=== PATIENT | female | born 1980 | race American Indian/Alaskan Native ===

== ENCOUNTER 2017-09-21 13:47 | Inpatient (IN) | payer MEDICAID, OTHER ==
[2017-09-21 14:37] LABS: Basophils % (Auto) 0.4 % (0.0-1.8); Mean Corpuscular HGB Conc 30 % (30-34); Mean Corpuscular Hemoglobin 29 pg (28-32); Mean Corpuscular Volume 96 fl (79-97); Platelet Count 292 K/mm3 (140-440); Red Blood Count 3.61 M/mm3 (3.65-5.03); White Blood Count 5.5 K/mm3 (4.5-11.0)
[2017-09-21 14:39] LABS: Hematocrit 34.8 % (30.3-42.9); Hemoglobin 10.5 gm/dl (10.1-14.3)
[2017-09-21 14:50] LABS: Anion Gap 34 mmol/L; BUN/Creatinine Ratio 20; Blood Urea Nitrogen 12 mg/dL (7-17); Calcium 8.9 mg/dL (8.4-10.2); Carbon Dioxide 11 mmol/L (22-30); Chloride 89.9 mmol/L (98-107); Glucose 370 mg/dL (65-100); Potassium 4.3 mmol/L (3.6-5.0); Sodium 131 mmol/L (137-145)
[2017-09-21 14:53] LABS: Urine Drugs of Abuse Note Disclamer
[2017-09-21 15:03] LABS: Bilirubin,Urine NEG (Negative); Blood,Urine NEG (Negative); Ketones,Urine 80 mg/dL (Negative); Leukocyte Esterase,Urine NEG (Negative); Mucus,Urine FEW /HPF; Nitrite,Urine NEG (Negative); RBC,Urine < 1.0 /HPF (0.0-6.0); Urobilinogen,Urine < 2.0 mg/dL (<2.0)
--- NOTE | 2017-09-21 17:42 | Emergency Department Report ---
HPI - General Chief Complaint: Psych Time Seen by Provider: 09/21/17 17:17 - HPI HPI: Room 12 The patient is a 37-year-old female presenting with a chief complaint of suicidal ideation. The patient states this morning at 05:00 she began feeling suicidal. Patient states her plan was to overdose on his arrival to. The patient states her kicked on the door and prevented her from overdosing on anything. Patient denies any active attempt at harming herself. Patient states she's been compliant with her medication for her diabetes. Location: Mental state Duration: Constant since 05:00 Quality: Suicidal Severity: Severe Modifying factors: [see above] Context: [see above] Mode of transportation: [not driving] ED Past Medical Hx - Past Medical History Previous Medical History?: Yes Hx Diabetes: Yes Hx Psychiatric Treatment: Yes (substance abuse, depression) - Surgical History Past Surgical History?: Yes Hx Cholecystectomy: Yes Additional Surgical History: gastric bypass 2007. x 1. tubal ligation - Family History Family history: no significant - Social History Smoking Status: Current Every Day Smoker (1/2 pack per day) Substance Use Type: None (denies illicit drug use) ED Review of Systems ROS: Stated complaint: SUICIDAL THOUGHTS Other details as noted in HPI Respiratory: denies: shortness of breath Endocrine: other (compliance with diabetes medication) Gastrointestinal: nausea. denies: vomiting Psychiatric: suicidal thoughts Physical Exam - Physical Exam Vital Signs: Vital Signs 09/21/17 09/21/17 13:49 16:38 Temperature 99.1 F Pulse Rate 95 H Respiratory 16 18 Rate Blood Pressure 128/86 O2 Sat by Pulse 100 98 Oximetry Physical Exam: GENERAL: The patient is well-developed well-nourished female lying on stretcher not appearing to be in acute distress. [] HEENT: Normocephalic. Atraumatic. Extraocular motions are intact. Patient has moist mucous membranes. NECK: Supple. No meningitic signs are noted. Trachea midline CHEST/LUNGS: There is no respiratory distress noted. HEART/CARDIOVASCULAR: Regular. There is no tachycardia. ABDOMEN: Abdomen is soft, nontender. There is no abdominal distention. SKIN: There is no rash. There is no edema. There is no diaphoresis. NEURO: The patient is awake, alert, and oriented. The patient is cooperative. The patient has normal speech MUSCULOSKELETAL: There is no evidence of acute injury. ED Course Vital Signs 09/21/17 09/21/17 13:49 16:38 Temperature 99.1 F Pulse Rate 95 H Respiratory 16 18 Rate Blood Pressure 128/86 O2 Sat by Pulse 100 98 Oximetry ED Medical Decision Making - Lab Data Result diagrams: 09/21/17 14:18 09/21/17 21:22 Laboratory Tests 09/21/17 09/21/17 09/21/17 14:18 14:18 14:18 WBC 5.5 RBC 3.61 L Hgb 10.5 Hct 34.8 MCV 96 MCH 29 MCHC 30 RDW 21.0 H Plt Count 292 Lymph % (Auto) 19.0 Garden % (Auto) 5.5 Eos % (Auto) 0.0 Baso % (Auto) 0.4 Lymph # 1.0 L Garden # 0.3 Eos # 0.0 Baso # 0.0 Seg Neutrophils % 75.1 H Seg Neutrophils # 4.1 VBG pH Sodium 131 L Potassium 4.3 Chloride 89.9 L Carbon Dioxide 11 L Anion Gap 34 BUN 12 Creatinine 0.6 L Estimated GFR > 60 BUN/Creatinine Ratio 20 Glucose 370 H Calcium 8.9 Urine Color Urine Turbidity Urine pH Ur Specific [place] Urine Protein Urine Glucose (UA) Urine Ketones Urine Blood Urine Nitrite Urine Bilirubin Urine Urobilinogen Ur Leukocyte Esterase Urine WBC (Auto) Urine RBC (Auto) Urine Mucus Salicylates Urine Opiates Screen Urine Methadone Screen Acetaminophen Ur Barbiturates Screen Ur Phencyclidine Scrn Ur Amphetamines Screen U Benzodiazepines Scrn Urine Cocaine Screen U Marijuana (THC) Screen Drugs of Abuse Note Plasma/Serum Alcohol < 0.01 09/21/17 09/21/17 09/21/17 14:18 14:18 14:48 WBC RBC Hgb Hct MCV MCH MCHC RDW Plt Count Lymph % (Auto) Garden % (Auto) Eos % (Auto) Baso % (Auto) Lymph # Garden # Eos # Baso # Seg Neutrophils % Seg Neutrophils # VBG pH Sodium Potassium Chloride Carbon Dioxide Anion Gap BUN Creatinine Estimated GFR BUN/Creatinine Ratio Glucose Calcium Urine Color Yellow Urine Turbidity Clear Urine pH 5.0 Ur Specific [place] 1.025 Urine Protein 30 mg/dl Urine Glucose (UA) >=500 Urine Ketones 80 Urine Blood Neg Urine Nitrite Neg Urine Bilirubin Neg Urine Urobilinogen < 2.0 Ur Leukocyte Esterase Neg Urine WBC (Auto) 1.0 Urine RBC (Auto) < 1.0 Urine Mucus Few Salicylates < 0.3 L Urine Opiates Screen Urine Methadone Screen Acetaminophen < 15.0 Ur Barbiturates Screen Ur Phencyclidine Scrn Ur Amphetamines Screen U Benzodiazepines Scrn Urine Cocaine Screen U Marijuana (THC) Screen Drugs of Abuse Note Plasma/Serum Alcohol 09/21/17 09/21/17 09/21/17 14:48 18:01 21:22 WBC RBC Hgb Hct MCV MCH MCHC RDW Plt Count Lymph % (Auto) Garden % (Auto) Eos % (Auto) Baso % (Auto) Lymph # Garden # Eos # Baso # Seg Neutrophils % Seg Neutrophils # VBG pH 7.347 Sodium 130 L Potassium 4.7 Chloride 91.5 L Carbon Dioxide 14 L Anion Gap 29 BUN 12 Creatinine 0.5 L Estimated GFR > 60 BUN/Creatinine Ratio 24 Glucose 556 H* Calcium 8.2 L Urine Color Urine Turbidity Urine pH Ur Specific [place] Urine Protein Urine Glucose (UA) Urine Ketones Urine Blood Urine Nitrite Urine Bilirubin Urine Urobilinogen Ur Leukocyte Esterase Urine WBC (Auto) Urine RBC (Auto) Urine Mucus Salicylates Urine Opiates Screen Presumptive negative Urine Methadone Screen Presumptive negative Acetaminophen Ur Barbiturates Screen Presumptive negative Ur Phencyclidine Scrn Presumptive negative Ur Amphetamines Screen Presumptive negative U Benzodiazepines Scrn Presumptive negative Urine Cocaine Screen Presumptive negative U Marijuana (THC) Screen Presumptive negative Drugs of Abuse Note Disclamer Plasma/Serum Alcohol - Differential Diagnosis suicidal ideation, DKA, hyperglycemia Critical care attestation.: If time is entered above; I have spent that time in minutes in the direct care of this critically ill patient, excluding procedure time. ED Disposition Clinical Impression: Suicidal ideation, Hyperglycemia, Ketosis Disposition: -09 OP ADMIT IP TO THIS HOSP Is pt being admited?: Yes Does the pt Need Aspirin: No Condition: Fair Referrals: PRIMARY CARE, [Primary Care Provider] - 3-5 Days Time of Disposition: 23:37 (hospitalist paged)
[2017-09-21] MEDS ORDERED: NACL 0.9% 1000 ML 1,000 ML IV ONE ×2 (18:39→21:54)
[2017-09-21] MEDS ORDERED: DESYREL PO ONE (21:13)
[2017-09-21] MEDS ORDERED: ZOFRAN IV ONE (21:13)
[2017-09-21 21:52] LABS: Anion Gap 29 mmol/L; BUN/Creatinine Ratio 24; Blood Urea Nitrogen 12 mg/dL (7-17); Calcium 8.2 mg/dL (8.4-10.2); Carbon Dioxide 14 mmol/L (22-30); Chloride 91.5 mmol/L (98-107); Potassium 4.7 mmol/L (3.6-5.0); Sodium 130 mmol/L (137-145)
[2017-09-21 21:59] LABS: Glucose 556 mg/dL (65-100)
[2017-09-21] MEDS ORDERED: D50W (25GM) Syringe IV PRN (23:38)
[2017-09-21] MEDS ORDERED: NovoLIN R 100 UNITS in NACL 0.9% 99 ML IV SCH (23:45)
[2017-09-22] MEDS ORDERED: NACL 0.9% 1000 ML 1,000 ML IV ONE (00:43)
[2017-09-22] MEDS ORDERED: TYLENOL PO PRN (00:45)
[2017-09-22] MEDS ORDERED: MILK OF MAGNESIA PO PRN (00:45)
[2017-09-22] MEDS ORDERED: D50W (25GM) Syringe IV PRN (00:45)
[2017-09-22] MEDS ORDERED: ZOFRAN IV PRN (00:45)
[2017-09-22] MEDS ORDERED: DULCOLAX PR PRN (00:45)
[2017-09-22 00:50] LABS: Anion Gap 32 mmol/L; BUN/Creatinine Ratio 20; Blood Urea Nitrogen 12 mg/dL (7-17); Calcium 8.1 mg/dL (8.4-10.2); Carbon Dioxide 11 mmol/L (22-30); Chloride 96.5 mmol/L (98-107); Potassium 4.4 mmol/L (3.6-5.0); Sodium 135 mmol/L (137-145)
[2017-09-22 00:51] LABS: Magnesium 1.5 mg/dL (1.7-2.3); Phosphorous 3.5 mg/dL (2.5-4.5)
--- NOTE | 2017-09-22 00:55 | History and Physical Report ---
<ALEXANDRIA CARRILLO Jorge - Last Filed: 09/22/17 00:49> History of Present Illness Date of examination: 09/22/17 History of present illness: 37-year-old woman with a history of diabetes complicated by gastroparesis, depression, pancreatitis comes emergency room because she tried to kill herself by taking xarelto. She intended to check 9 pills but her knocked them out of her hands and she was able to take only 3. She stated that she has a lot of stressors in her life. Sugars are found to be elevated in the emergency room despite given subcutaneous insulin Review Of Systems: Constitutional: no weight loss Ears, eyes, nose, mouth and throat: no nasal congestion, no nasal discharge, no sinus pressure, blurry vision, diplopia Neck: No neck pain or rigidity. Cardiovascular: chest pain, orthopnea, palpitations Respiratory: No shortness of breath, cough Gastrointestinal: no abdominal pain, hematochezia Genitourinary : no dysuria, frequency , hematuria Musculoskeletal: no muscle ache Integumentary: no rash, no pruritis Neurological: no parathesias, focal weakness Endocrine: no cold or heat intolerance, no polyuria or polydipsia Hematologic/Lymphatic: no easy bruising, no easy bleeding, no gland swelling Allergic/Immunologic: no urticaria, no angioedema. PAST MEDICAL HISTORY: diabetes complicated by gastroparesis, depression, pancreatitis PAST SURGICAL HISTORY: Tubal ligation, 1, gastric bypass, cholecystectomy FAILY HISTORY: Diabetes SOCIAL HISTORY: Smokes half pack a day, no alcohol or drugs Medications and Allergies Allergies Allergy/AdvReac Type Severity Reaction Status Date / Time No Known Allergies Allergy Unverified 09/07/15 16:20 Active Meds: Active Medications Dextrose (D50w (25gm) Syringe) 0 ml IV ONCE PRN PRN Reason: Hypoglycemia Insulin Human Regular 100 (units/ Sodium Chloride) 100 mls @ 6 mls/hr IV TITR JERMAN; 6 UNITS/HR PRN Reason: Protocol Sodium Chloride (Nacl 0.9% 1000 Ml) 1,000 mls @ 999 mls/hr IV BOLUS ONE Stop: 09/22/17 01:43 Last Admin: 09/22/17 00:44 Dose: 999 mls/hr Exam - Physical Exam Narrative exam: Gen. appearance: Patient lying in bed in no acute distress HEENT: Normocephalic/atraumatic, pupils equal round reactive to light, extra alkaline movement intact, no scleral icterus, no JVD or thyromegaly or nodule, neck is supple, mucous membrane moist, no erythema or exudate Heart: S1-S2, regular rate and rhythm Lungs: Clear to auscultation bilateral breathing comfortable Abdomen: Positive bowel sounds, nontender, nondistended, no organomegaly Extremities: No edema, cyanosis, clubbing Neuro:: Oriented 3 , cranial nerves II-12 intact, speech, motor intact Skin: No rash, nodules, warm dry - Constitutional Vitals: Temp Pulse Resp BP Pulse Ox 99.1 F 95 H 18 128/86 98 09/21/17 13:49 09/21/17 13:49 09/21/17 16:38 09/21/17 13:49 09/21/17 16:38 Results - Labs CBC & Chem 7: 09/21/17 14:18 09/21/17 21:22 Labs: Abnormal lab results 09/21/17 09/21/17 09/21/17 Range/Units 14:18 14:18 14:18 RBC 3.61 L (3.65-5.03) M/mm3 RDW 21.0 H (13.2-15.2) % Lymph # 1.0 L (1.2-5.4) K/mm3 Seg Neutrophils % 75.1 H (40.0-70.0) % Sodium 131 L (137-145) mmol/L Chloride 89.9 L (98-107) mmol/L Carbon Dioxide 11 L (22-30) mmol/L Creatinine 0.6 L (0.7-1.2) mg/dL Glucose 370 H (65-100) mg/dL POC Glucose (70-105) Calcium (8.4-10.2) mg/dL Salicylates < 0.3 L (2.8-20.0) mg/dL 09/21/17 09/21/17 Range/Units 21:22 23:29 RBC (3.65-5.03) M/mm3 RDW (13.2-15.2) % Lymph # (1.2-5.4) K/mm3 Seg Neutrophils % (40.0-70.0) % Sodium 130 L (137-145) mmol/L Chloride 91.5 L (98-107) mmol/L Carbon Dioxide 14 L (22-30) mmol/L Creatinine 0.5 L (0.7-1.2) mg/dL Glucose 556 H* (65-100) mg/dL POC Glucose > 500 H (70-105) Calcium 8.2 L (8.4-10.2) mg/dL Salicylates (2.8-20.0) mg/dL Assessment and Plan Assessment DKA Suicide ideation Depression Pancreatitis, chronic Plan Admit to medicine Start IV fluids, insulin drip Check fingersticks, serial chemistry Consult psych, critical care initiate DVT prophylaxis <NAKUL THURMAN - Last Filed: 09/22/17 16:48> History of Present Illness Date of admission: 09/22/17 00:45 Medications and Allergies Active Meds: Active Medications Acetaminophen (Tylenol) 650 mg PO Q4H PRN PRN Reason: Pain MILD(1-3)/Fever >100.5/ROQUE Last Admin: 09/22/17 12:55 Dose: 650 mg Bisacodyl (Dulcolax) 10 mg MA QDAY PRN PRN Reason: Constipation unrelieved by [facility] Dextrose (D50w (25gm) Syringe) 0 ml IV ONCE PRN PRN Reason: Hypoglycemia Gabapentin (Neurontin) 300 mg PO BID [facility] Last Admin: 09/22/17 12:48 Dose: 300 mg Sodium Chloride (Nacl 0.9% 1000 Ml) 1,000 mls @ 150 mls/hr IV DIRECT JERMAN Last Admin: 09/22/17 02:19 Dose: 150 mls/hr Sodium Chloride (Nacl 0.9% 1000 Ml) 1,000 mls @ 125 mls/hr IV DIRECT [facility] Influenza Virus Vaccine Quadrival (Fluarix Quad [id number](36 Mos+) 0.5 ml IM .ONCE ONE Stop: 09/23/17 12:01 Insulin Aspart (Novolog) 10 units SUB-Q AC [facility] Last Admin: 09/22/17 12:48 Dose: 10 units Insulin Detemir (Levemir) 20 units SUB-Q QHS [facility] Magnesium Hydroxide (Milk Of Magnesia) 30 ml PO Q4H PRN PRN Reason: Constipation Ondansetron HCl (Zofran) 4 mg IV Q8H PRN PRN Reason: N/V unrelieved by Reglan Pneumococcal Polyvalent Vaccine (Pneumovax 23) 0.5 ml IM .ONCE ONE Stop: 09/23/17 12:01 Rivaroxaban (Xarelto) 20 mg PO DAILY [facility] PRN Reason: Protocol Last Admin: 09/22/17 15:41 Dose: Not Given Sodium Bicarbonate (Sodium Bicarbonate) 650 mg PO TID [facility] Stop: 09/24/17 13:59 Venlafaxine HCl (Effexor Xr) 75 mg PO QDAY [facility] Exam - Constitutional Vitals: Temp Pulse Resp BP Pulse Ox 98.5 F 86 23 117/73 100 09/22/17 08:30 09/22/17 12:00 09/22/17 12:00 09/22/17 12:00 09/22/17 12:00 Results - Labs CBC & Chem 7: 09/21/17 14:18 09/22/17 08:39 Labs: Abnormal lab results 09/21/17 09/21/17 09/21/17 Range/Units 14:18 21:22 23:29 Sodium 130 L (137-145) mmol/L Chloride 91.5 L (98-107) mmol/L Carbon Dioxide 14 L (22-30) mmol/L Creatinine 0.5 L (0.7-1.2) mg/dL Glucose 556 H* (65-100) mg/dL POC Glucose > 500 H (70-105) Hemoglobin A1c (4-6) % Calcium 8.2 L (8.4-10.2) mg/dL Magnesium (1.7-2.3) mg/dL Salicylates < 0.3 L (2.8-20.0) mg/dL 09/22/17 09/22/17 09/22/17 Range/Units 00:04 00:04 02:10 Sodium 135 L (137-145) mmol/L Chloride 96.5 L (98-107) mmol/L Carbon Dioxide 11 L (22-30) mmol/L Creatinine 0.6 L (0.7-1.2) mg/dL Glucose 509 H* (65-100) mg/dL POC Glucose 347 H (70-105) Hemoglobin A1c (4-6) % Calcium 8.1 L (8.4-10.2) mg/dL Magnesium 1.50 L (1.7-2.3) mg/dL Salicylates (2.8-20.0) mg/dL 09/22/17 09/22/17 09/22/17 Range/Units 03:17 03:30 03:30 Sodium (137-145) mmol/L Chloride (98-107) mmol/L Carbon Dioxide 18 L D (22-30) mmol/L Creatinine 0.4 L (0.7-1.2) mg/dL Glucose 188 H (65-100) mg/dL POC Glucose 200 H (70-105) Hemoglobin A1c (4-6) % Calcium 8.1 L (8.4-10.2) mg/dL Magnesium 1.40 L (1.7-2.3) mg/dL Salicylates (2.8-20.0) mg/dL 09/22/17 09/22/17 09/22/17 Range/Units 04:29 06:06 07:09 Sodium (137-145) mmol/L Chloride (98-107) mmol/L Carbon Dioxide 20 L (22-30) mmol/L Creatinine 0.3 L (0.7-1.2) mg/dL Glucose (65-100) mg/dL POC Glucose 144 H 144 H (70-105) Hemoglobin A1c (4-6) % Calcium 8.0 L (8.4-10.2) mg/dL Magnesium (1.7-2.3) mg/dL Salicylates (2.8-20.0) mg/dL 09/22/17 09/22/17 09/22/17 Range/Units 08:23 08:39 09:39 Sodium 134 L (137-145) mmol/L Chloride (98-107) mmol/L Carbon Dioxide 18 L (22-30) mmol/L Creatinine 0.3 L (0.7-1.2) mg/dL Glucose 229 H (65-100) mg/dL POC Glucose 222 H 255 H (70-105) Hemoglobin A1c (4-6) % Calcium 7.7 L (8.4-10.2) mg/dL Magnesium (1.7-2.3) mg/dL Salicylates (2.8-20.0) mg/dL 09/22/17 09/22/17 09/22/17 Range/Units 10:44 11:24 11:37 Sodium (137-145) mmol/L Chloride (98-107) mmol/L Carbon Dioxide (22-30) mmol/L Creatinine (0.7-1.2) mg/dL Glucose (65-100) mg/dL POC Glucose 172 H 232 H (70-105) Hemoglobin A1c 8.5 H (4-6) % Calcium (8.4-10.2) mg/dL Magnesium (1.7-2.3) mg/dL Salicylates (2.8-20.0) mg/dL 09/22/17 Range/Units 16:20 Sodium (137-145) mmol/L Chloride (98-107) mmol/L Carbon Dioxide (22-30) mmol/L Creatinine (0.7-1.2) mg/dL Glucose (65-100) mg/dL POC Glucose 199 H (70-105) Hemoglobin A1c (4-6) % Calcium (8.4-10.2) mg/dL Magnesium (1.7-2.3) mg/dL Salicylates (2.8-20.0) mg/dL
[2017-09-22] MEDS ORDERED: D5/0.45NS 1,000 ML IV SCH (01:00)
[2017-09-22 01:15] LABS: Glucose 509 mg/dL (65-100)
[2017-09-22] MEDS ORDERED: NACL 0.9% 1000 ML 1,000 ML IV SCH ×2 (03:00→11:00)
[2017-09-22 04:05] LABS: BUN/Creatinine Ratio 25; Blood Urea Nitrogen 10 mg/dL (7-17); Calcium 8.1 mg/dL (8.4-10.2); Carbon Dioxide 18 mmol/L (22-30); Chloride 101.5 mmol/L (98-107); Glucose 188 mg/dL (65-100); Potassium 3.9 mmol/L (3.6-5.0); Sodium 137 mmol/L (137-145)
[2017-09-22 04:08] LABS: Anion Gap 21 mmol/L
[2017-09-22 04:13] LABS: Magnesium 1.4 mg/dL (1.7-2.3); Phosphorous 2.8 mg/dL (2.5-4.5)
[2017-09-22 06:52] LABS: BUN/Creatinine Ratio 27; Blood Urea Nitrogen 8 mg/dL (7-17); Carbon Dioxide 20 mmol/L (22-30); Chloride 105.7 mmol/L (98-107); Glucose 98 mg/dL (65-100); Sodium 140 mmol/L (137-145)
[2017-09-22 07:18] LABS: Anion Gap 19 mmol/L; Potassium 4.5 mmol/L (3.6-5.0)
[2017-09-22] MEDS ORDERED: MAGNESIUM SULFATE 4GM/100ML 4 GM/100 ML BAG IV ONE (09:00)
[2017-09-22 09:14] LABS: Anion Gap 20 mmol/L; BUN/Creatinine Ratio 27; Blood Urea Nitrogen 8 mg/dL (7-17); Calcium 7.7 mg/dL (8.4-10.2); Carbon Dioxide 18 mmol/L (22-30); Chloride 100.3 mmol/L (98-107); Glucose 229 mg/dL (65-100); Potassium 4.1 mmol/L (3.6-5.0); Sodium 134 mmol/L (137-145)
--- NOTE | 2017-09-22 09:37 | Event Note ---
Date: 09/22/17 Patient is 37 yo with diabetic ketoacidosis. I have seen and examined her today. Blood glucose improved, anion gap closing. Awaiting BMP. February d/c Insulin drip and transition to subcut Insulin and transfer to Med/surg.
[2017-09-22] MEDS ORDERED: XARELTO PO SCH (12:00)
[2017-09-22] MEDS: NEURONTIN PO SCH (12:48)
[2017-09-22] MEDS: NOVOLOG SUB-Q SCH ×2 (12:48→17:14)
--- NOTE | 2017-09-22 13:59 | Consultation ---
History of Present Illness - Reason for Consult Consult date: 09/22/17 Reason for consult: Mental Health Evaluation Requesting physician: LUCÍA DEGROOT - Chief Complaint Chief complaint: "I was never suicidal" - History of Present Psychiatric Illness The patient is a 37-year-old female presenting with a chief complaint of suicidal ideation. Today patient is calm and cooperative during the assessment. She stated that she isn't suicidal. She stated that she she been "clean 23 day" from using percocet. She stated that she completed a detox program 3 weeks ago and feared returning to her current residence because of the the "bad drug environment." She felt like if she endorsed SI, she would be placed at a alf. She stated that she went to [facility] (no beds available) prior to coming to [facility]. She stated being dx with depression and take Effexor. She stated that she fear relapsing and that fear exacerbate her depression. She denies being suicidal now or in the past. She denies HI's and AVH's. She denies recreational drug use and alcohol consumption (etoh). Medications and Allergies Allergies Allergy/AdvReac Type Severity Reaction Status Date / Time No Known Allergies Allergy Unverified 09/07/15 16:20 Home Medications Medication Instructions Recorded Confirmed Last Taken Type Gabapentin [Neurontin] 300 mg PO BID 09/22/17 09/22/17 Unknown History Insulin Aspart [NovoLOG Flexpen] 10 units SQ AC 09/22/17 09/22/17 Unknown History Levemir 5 units SQ QHS 09/22/17 09/22/17 Unknown History Rivaroxaban [Xarelto] 20 mg PO DAILY 09/22/17 09/22/17 Unknown History Active Meds: Active Medications Acetaminophen (Tylenol) 650 mg PO Q4H PRN PRN Reason: Pain MILD(1-3)/Fever >100.5/ROQUE Last Admin: 09/22/17 12:55 Dose: 650 mg Bisacodyl (Dulcolax) 10 mg PA QDAY PRN PRN Reason: Constipation unrelieved by [facility] Dextrose (D50w (25gm) Syringe) 0 ml IV ONCE PRN PRN Reason: Hypoglycemia Gabapentin (Neurontin) 300 mg PO BID [facility] Last Admin: 09/22/17 12:48 Dose: 300 mg Sodium Chloride (Nacl 0.9% 1000 Ml) 1,000 mls @ 150 mls/hr IV DIRECT [facility]ERMAN Last Admin: 09/22/17 02:19 Dose: 150 mls/hr Sodium Chloride (Nacl 0.9% 1000 Ml) 1,000 mls @ 125 mls/hr IV DIRECT [facility] Insulin Aspart (Novolog) 10 units SUB-Q AC [facility] Last Admin: 09/22/17 12:48 Dose: 10 units Magnesium Hydroxide (Milk Of Magnesia) 30 ml PO Q4H PRN PRN Reason: Constipation Ondansetron HCl (Zofran) 4 mg IV Q8H PRN PRN Reason: N/V unrelieved by Reglan Rivaroxaban (Xarelto) 20 mg PO DAILY [facility] PRN Reason: Protocol Sodium Bicarbonate (Sodium Bicarbonate) 650 mg PO TID [facility] Stop: 09/24/17 13:59 Past psychiatric history - Past Medical History Past Medical History: No medical history Past Surgical History: cholecystectomy - past Psychiatric treatment and history Psych: Depression psychiatric treatment history: Inpatient detox for opiate abuse. Hx of depression. Denies a fan psy hx. - Social History Social history: lives with family Mental Status Exam - Vital signs Last Vital Signs Temp 98.5 F 09/22/17 08:30 Pulse 86 09/22/17 12:00 Resp 23 09/22/17 12:00 BP 117/73 09/22/17 12:00 Pulse Ox 100 09/22/17 12:00 - Exam Narrative exam: MSE: Appearance: calm, cooperative Behavior: regular eye contact Speech: regular rate and tone Mood: "okay" Affect: congruent to mood Thought Process: circumstantial Thought Content: denies SI/HI's and AVH's Motor Activity: ambulatory Cognition: A/O x3 Insight: fair Judgment: fair Results Result Diagrams: 09/21/17 14:18 09/22/17 08:39 Abnormal lab results 09/21/17 09/21/17 09/21/17 Range/Units 14:18 14:18 14:18 RBC 3.61 L (3.65-5.03) M/mm3 RDW 21.0 H (13.2-15.2) % Lymph # 1.0 L (1.2-5.4) K/mm3 Seg Neutrophils % 75.1 H (40.0-70.0) % Sodium 131 L (137-145) mmol/L Chloride 89.9 L (98-107) mmol/L Carbon Dioxide 11 L (22-30) mmol/L Creatinine 0.6 L (0.7-1.2) mg/dL Glucose 370 H (65-100) mg/dL POC Glucose (70-105) Hemoglobin A1c (4-6) % Calcium (8.4-10.2) mg/dL Magnesium (1.7-2.3) mg/dL Salicylates < 0.3 L (2.8-20.0) mg/dL 09/21/17 09/21/17 09/22/17 Range/Units 21:22 23:29 00:04 RBC (3.65-5.03) M/mm3 RDW (13.2-15.2) % Lymph # (1.2-5.4) K/mm3 Seg Neutrophils % (40.0-70.0) % Sodium 130 L (137-145) mmol/L Chloride 91.5 L (98-107) mmol/L Carbon Dioxide 14 L (22-30) mmol/L Creatinine 0.5 L (0.7-1.2) mg/dL Glucose 556 H* (65-100) mg/dL POC Glucose > 500 H (70-105) Hemoglobin A1c (4-6) % Calcium 8.2 L (8.4-10.2) mg/dL Magnesium 1.50 L (1.7-2.3) mg/dL Salicylates (2.8-20.0) mg/dL 09/22/17 09/22/17 09/22/17 Range/Units 00:04 02:10 03:17 RBC (3.65-5.03) M/mm3 RDW (13.2-15.2) % Lymph # (1.2-5.4) K/mm3 Seg Neutrophils % (40.0-70.0) % Sodium 135 L (137-145) mmol/L Chloride 96.5 L (98-107) mmol/L Carbon Dioxide 11 L (22-30) mmol/L Creatinine 0.6 L (0.7-1.2) mg/dL Glucose 509 H* (65-100) mg/dL POC Glucose 347 H 200 H (70-105) Hemoglobin A1c (4-6) % Calcium 8.1 L (8.4-10.2) mg/dL Magnesium (1.7-2.3) mg/dL Salicylates (2.8-20.0) mg/dL 09/22/17 09/22/17 09/22/17 Range/Units 03:30 03:30 04:29 RBC (3.65-5.03) M/mm3 RDW (13.2-15.2) % Lymph # (1.2-5.4) K/mm3 Seg Neutrophils % (40.0-70.0) % Sodium (137-145) mmol/L Chloride (98-107) mmol/L Carbon Dioxide 18 L D (22-30) mmol/L Creatinine 0.4 L (0.7-1.2) mg/dL Glucose 188 H (65-100) mg/dL POC Glucose 144 H (70-105) Hemoglobin A1c (4-6) % Calcium 8.1 L (8.4-10.2) mg/dL Magnesium 1.40 L (1.7-2.3) mg/dL Salicylates (2.8-20.0) mg/dL 09/22/17 09/22/17 09/22/17 Range/Units 06:06 07:09 08:23 RBC (3.65-5.03) M/mm3 RDW (13.2-15.2) % Lymph # (1.2-5.4) K/mm3 Seg Neutrophils % (40.0-70.0) % Sodium (137-145) mmol/L Chloride (98-107) mmol/L Carbon Dioxide 20 L (22-30) mmol/L Creatinine 0.3 L (0.7-1.2) mg/dL Glucose (65-100) mg/dL POC Glucose 144 H 222 H (70-105) Hemoglobin A1c (4-6) % Calcium 8.0 L (8.4-10.2) mg/dL Magnesium (1.7-2.3) mg/dL Salicylates (2.8-20.0) mg/dL 09/22/17 09/22/17 09/22/17 Range/Units 08:39 09:39 10:44 RBC (3.65-5.03) M/mm3 RDW (13.2-15.2) % Lymph # (1.2-5.4) K/mm3 Seg Neutrophils % (40.0-70.0) % Sodium 134 L (137-145) mmol/L Chloride (98-107) mmol/L Carbon Dioxide 18 L (22-30) mmol/L Creatinine 0.3 L (0.7-1.2) mg/dL Glucose 229 H (65-100) mg/dL POC Glucose 255 H 172 H (70-105) Hemoglobin A1c (4-6) % Calcium 7.7 L (8.4-10.2) mg/dL Magnesium (1.7-2.3) mg/dL Salicylates (2.8-20.0) mg/dL 09/22/17 09/22/17 Range/Units 11:24 11:37 RBC (3.65-5.03) M/mm3 RDW (13.2-15.2) % Lymph # (1.2-5.4) K/mm3 Seg Neutrophils % (40.0-70.0) % Sodium (137-145) mmol/L Chloride (98-107) mmol/L Carbon Dioxide (22-30) mmol/L Creatinine (0.7-1.2) mg/dL Glucose (65-100) mg/dL POC Glucose 232 H (70-105) Hemoglobin A1c 8.5 H (4-6) % Calcium (8.4-10.2) mg/dL Magnesium (1.7-2.3) mg/dL Salicylates (2.8-20.0) mg/dL All other labs normal. Assessment and Plan Assessment and plan: Impression: Hx of Depression. Today patient is calm and cooperative during the assessment. Recommendation/Plan: Continue 1013 and gather collateral information to help determine proper dispo. Start home medication Effexor 75 mg PO daily for depression. Discussed possible suicidality/medication induced penny with patient reference Effexor.
[2017-09-22] MEDS: SODIUM BICARBONATE PO SCH (18:10)
[2017-09-22] MEDS: EFFEXOR XR PO SCH (18:10)
[2017-09-22] MEDS: XANAX PO PRN (19:51)
[2017-09-22] MEDS ORDERED: LEVEMIR SUB-Q SCH (22:00)
[2017-09-23] MEDS: NEURONTIN PO SCH ×2 (00:45→09:24)
[2017-09-23] MEDS: SODIUM BICARBONATE PO SCH ×2 (00:46→09:23)
[2017-09-23] MEDS ORDERED: DESYREL PO SCH (02:00)
[2017-09-23] MEDS: XANAX PO PRN (04:11)
[2017-09-23 06:20] LABS: Anion Gap 22 mmol/L; BUN/Creatinine Ratio 23; Blood Urea Nitrogen 9 mg/dL (7-17); Calcium 8.1 mg/dL (8.4-10.2); Carbon Dioxide 19 mmol/L (22-30); Chloride 102.4 mmol/L (98-107); Glucose 296 mg/dL (65-100); Potassium 4.1 mmol/L (3.6-5.0); Sodium 139 mmol/L (137-145)
[2017-09-23 06:26] LABS: Basophils % (Auto) 0.3 % (0.0-1.8); Eosinophils % (Auto) 0.5 % (0.0-4.3); Hematocrit 28.2 % (30.3-42.9); Hemoglobin 8.8 gm/dl (10.1-14.3); Mean Corpuscular HGB Conc 31 % (30-34); Mean Corpuscular Hemoglobin 29 pg (28-32); Mean Corpuscular Volume 93 fl (79-97); Platelet Count 232 K/mm3 (140-440); Red Blood Count 3.04 M/mm3 (3.65-5.03)
[2017-09-23 06:27] LABS: Red Cell Distribution Width 20.4 % (13.2-15.2)
[2017-09-23 06:31] LABS: INR 0.86 (0.87-1.13); Partial Thromboplastin Time 30.7 Sec. (24.2-36.6)
[2017-09-23 08:19] VITALS: BP 153/96
--- NOTE | 2017-09-23 09:19 | Discharge Summary ---
Providers - Providers Date of Admission: 09/22/17 00:45 Date of discharge: 09/23/17 Attending physician: NAKUL THURMAN 09/22/17 00:58 psychiatry consult [Consult to Mental Health] [CONS] Routine Reason For Exam: SI Place consult to:: PSYCH Notified:: amanda Phone number called:: [phone] Was contact made?: No Time called:: 16:53 Comment:: no answer Primary care physician: BASKET SORTER Hospitalization Condition: Fair Exam - Constitutional Vitals: Temp Pulse Resp BP Pulse Ox 98.6 F 80 16 153/96 100 09/23/17 08:17 09/23/17 08:17 09/23/17 08:17 09/23/17 08:17 09/23/17 08:17 Plan Activity: no restrictions Diet: diabetic Additional Instructions: 1.Follow up with PCP or [facility] in 1 week. 2.Folllow up with mental health in 1-3 days as outpatient. Follow up with: PRIMARY CARE, [Primary Care Provider] - 3-5 Days Prescriptions: Insulin Detemir [Levemir] 10 units SUB-Q QHS #1 vial
--- NOTE | 2017-09-23 09:21 | Progress Note ---
Subjective - Reason for Consult Consult date: 09/23/17 Reason for consult: Psychiatry Follow-up - Chief Complaint Chief complaint: "I'm ready to be discharged" The patient is a 37-year-old female presenting with a chief complaint of suicidal ideation. Today patient is calm and cooperative during the assessment. Per collateral from her Mr Bhatti who was at the bedside, he confirmed that his was never suicidal, but feared returning to her residence because of the drug activity. He stated that his been "clean" from opiates for 3 weeks. Also, this patient was informed that her son was shot last night and currently in critical condition at a local hospital. She denies SI/HI's and AVH' s. She stated that she would like a referral for outpatient psy/rehab services. She denies any side effects of her medication. Mental Status Exam - Vital signs Last Vital Signs Temp 98.6 F 09/23/17 08:17 Pulse 80 09/23/17 08:17 Resp 16 09/23/17 08:17 BP 153/96 09/23/17 08:17 Pulse Ox 100 09/23/17 08:17 - Exam Narrative exam: MSE: Appearance: calm, cooperative Behavior: regular eye contact Speech: regular rate and tone Mood: "okay" Affect: congruent to mood Thought Process: logical Thought Content: denies SI/HI's and AVH's Motor Activity: ambulatory Cognition: A/O x3 Insight: appropriate Judgment: appropriate Assessment and Plan Impression: Hx of Depression. Today patient is calm and cooperative during the assessment. Recommendation/Plan: Rescind 1013. Continue Effexor 75 mg PO daily for depression. Discussed possible suicidality/medication induced penny with patient reference Effexor. Discussed generalized coping skills with patient.
[2017-09-23] MEDS: NOVOLOG SUB-Q SCH (09:23)
[2017-09-23] MEDS: EFFEXOR XR PO SCH (09:24)
[2017-09-23] MEDS ORDERED: Fluarix Quad 2017-2018(36 MOS+ IM ONE (12:00)
[2017-09-23] MEDS ORDERED: PNEUMOVAX 23 IM ONE (12:00)
[2017-09-23] MEDS ORDERED: LEVEMIR SUB-Q SCH (22:00)
== END 2017-09-23 10:33 | disposition home or self-care (01) | DRG 638 ==
LOC: ED 13:47 → EEVIPCON 13:47 → CC1 09-22 00:45 → 3A 09-22 12:19
PROVIDERS: ADMIT Internal Medicine; ATTEND Internal Medicine
DX: E13.10 Other specified diabetes mellitus with ketoacidosis without coma (principal); R45.851 Suicidal ideations; K86.1 Other chronic pancreatitis; F17.200 Nicotine dependence, unspecified, uncomplicated; F32.9 Major depressive disorder, single episode, unspecified; Z98.51 Tubal ligation status; Z90.49 Acquired absence of other specified parts of digestive tract; Z83.3 Family history of diabetes mellitus
CPT/HCPCS: 36415; 80048; 80307; 80320; 81001; 82805; 82962; 83036; 83735; 84100; 85025; 85610; 85730; 90686; 90732; 96361; 96374; 96375; 96376; G0480; J1815; J1818; J2405; J3475; J7030

== ENCOUNTER 2019-06-04 21:27 | Inpatient (IN) | payer MEDICARE ==
[2019-06-04] MEDS ORDERED: NACL 0.9% 1000 ML 1,000 ML IV ONE (23:11)
--- NOTE | 2019-06-04 23:16 | Emergency Department Report ---
ED General Adult HPI - General Chief complaint: Fall Stated complaint: LEFT SHOULDER/HIP PAIN Time Seen by Provider: 06/04/19 22:33 Source: EMS (ems notes not available at time of chart dictation), RN notes reviewed, old records reviewed Mode of arrival: Stretcher Limitations: Altered Mental Status, Physical Limitation - History of Present Illness Initial comments: This is a 79-year-old female. The patient is not known to this provider previously. Past medical history includes depression, substance abuse, DVT, gastric bypass, pancreatitis, history of suicidality, history of cholecystectomy The patient is reportedly brought to the hospital by EMS for fall. The patient is reportedly coming from a local psychiatric facility. Upon my initial e valuation, the patient is altered. She is unable to tell me what happened. She is not able to describe exacerbating or relieving factors. Triage documentation, it is noted that she reportedly fell on her left shoulder and left hip As per includes psychiatric documentation, she reportedly sees her son standing in her room, voices telling her to hurt herself, thinks everyone judges her because her medical and mental health issues. Reportedly she is not slept in 2 months, cannot eat, and does not want to participate in any activities. Apparently, it is also documented that she does not want to take care of her activities of daily living, and can't do anything. Medications include NovoLog, Lantus, oxycodone, gabapentin, calcium, Xanax, xarelto In the ER, the patient is found to be altered, hypotensive, and hypoglycemic. No additional collateral information is available at this time. Patient not able to describe exacerbating or relieving factors at this time. -: unknown Quality: other Consistency: other Improves with: other Worsens with: other Associated Symptoms: other - Related Data Home Medications Medication Instructions Recorded Confirmed Last Taken Gabapentin [Neurontin] 300 mg PO BID 09/22/17 09/22/17 Unknown Insulin Aspart [NovoLOG Flexpen] 10 units SQ AC 09/22/17 09/22/17 Unknown Rivaroxaban [Xarelto] 20 mg PO DAILY 09/22/17 09/22/17 Unknown Previous Rx's Medication Instructions Recorded Last Taken Type Detemir (Nf) [Levemir (Nf)] 10 units SUB-Q QHS #1 vial 09/23/17 Unknown Rx Venlafaxine Xr [Effexor XR] 75 mg PO QDAY capsule 09/23/17 Unknown Rx Allergies Allergy/AdvReac Type Severity Reaction Status Date / Time No Known Allergies Allergy Unverified 09/07/15 16:20 ED Review of Systems ROS: Stated complaint: LEFT SHOULDER/HIP PAIN Other details as noted in HPI Comment: Unobtainable due to pts medical conditions ED Past Medical Hx - Past Medical History Previous Medical History?: Yes Hx Diabetes: Yes Hx Psychiatric Treatment: Yes (substance abuse, depression) Additional medical history: DVT, left humerus fx - Surgical History Past Surgical History?: Yes Hx Cholecystectomy: Yes Additional Surgical History: gastric bypass 2007. x 1. tubal ligation - Social History Smoking Status: Light Tobacco Smoker Substance Use Type: None - Medications Home Medications: Home Medications Medication Instructions Recorded Confirmed Last Taken Type Gabapentin [Neurontin] 300 mg PO BID 09/22/17 09/22/17 Unknown History Insulin Aspart [NovoLOG Flexpen] 10 units SQ AC 09/22/17 09/22/17 Unknown History Rivaroxaban [Xarelto] 20 mg PO DAILY 09/22/17 09/22/17 Unknown History Detemir (Nf) [Levemir (Nf)] 10 units SUB-Q QHS #1 vial 09/23/17 Unknown Rx Venlafaxine Xr [Effexor XR] 75 mg PO QDAY capsule 09/23/17 Unknown Rx ED Physical Exam - General Limitations: Physical Limitation General appearance: lethargic - Eye Eye exam: Present: EOMI - ENT ENT exam: Present: mucous membranes dry, normal external ear exam - Neck Neck exam: Present: normal inspection, full ROM. Absent: tenderness, meningismus - Respiratory Respiratory exam: Present: decreased breath sounds - Cardiovascular Cardiovascular Exam: Present: regular rate, normal rhythm, normal heart sounds. Absent: bradycardia, tachycardia, irregular rhythm - GI/Abdominal GI/Abdominal exam: Present: soft. Absent: distended, tenderness, guarding, pulsatile mass - Extremities Exam Extremities exam: Present: pedal edema - Back Exam Back exam: Absent: tenderness, CVA tenderness (R), paraspinal tenderness, vertebral tenderness - Neurological Exam Neurological exam: Present: altered, other (the patient is altered. She responds to painful stimuli. She moves 4 extremities in response to painful stimuli. There is no obvious facial droop. A detailed neurologic examination is not possible secondary to altered mental status.) ED Course Vital Signs 06/04/19 06/04/19 06/04/19 21:30 23:06 23:16 Temperature 99.1 F Pulse Rate 74 Respiratory 16 Rate Blood Pressure 93/63 O2 Sat by Pulse 100 98 Oximetry 06/04/19 06/05/19 06/05/19 23:30 00:02 00:16 Temperature Pulse Rate 74 71 Respiratory 16 13 Rate Blood Pressure 70/34 O2 Sat by Pulse 100 100 Oximetry 06/05/19 06/05/19 06/05/19 00:30 00:46 01:00 Temperature Pulse Rate 74 74 71 Respiratory 14 13 11 L Rate Blood Pressure 93/45 92/47 89/49 O2 Sat by Pulse 100 100 100 Oximetry 06/05/19 01:15 Temperature Pulse Rate 72 Respiratory 12 Rate Blood Pressure 90/52 O2 Sat by Pulse 100 Oximetry - Reevaluation(s) Reevaluation #1: 06/05/19 01:05 Differential diagnosis, including not limited to: Intracranial injury, cervical spine injury, pneumonia, urinary tract infection, bacteremia, viremia, retroperi toneal bleed, encephalopathy secondary to hypoglycemia Assessment and plan: 39-year-old female with reported fall, clearly altered, likely secondary to hypoglycemia, protecting her airway, moving 4 extremities in response to painful stimuli. Noncontrast CT scan of the brain, cervical spine ordered, CT scan of the abdomen and pelvis is ordered. Screening laboratory studies ordered. Accu-Chek every 1 hour ordered, IV fluids ordered, dextrose drip ordered. We will reassess after that data points have resulted. Anticipate admission for glycemic monitoring, hydration, and further treatment as dictated by initial diagnostics. Reevaluation #2: 06/05/19 01:08 Patient is emergently and administratively consented by myself or CT scans of the brain, cervical spine and abdomen/pelvis. We will obtain these tests prior to the resulting of her laboratory studies including a test. Given altered mental status, hypoglycemia, hypotension, patient needs to be evaluated for potential life-threatening etiology. Benefits outweigh risks even if the patient is in my opinion. Reevaluation #3: 06/05/19 01:52 Laboratory studies show chronic anemia, recurrent hypoglycemia, hypokalemia. 06/05/19 01:52 care will be transferred to Dr Nile Guillory to follow upon ct head, c spine, a/p, Urine and contact hospitalist to admit Reevaluation #4: 06/05/19 02:02 X-ray of the right shoulder, pelvis, fever, tib-fib negative for acute disease. Intrinsic hardware is noted. ED Medical Decision Making - Lab Data Result diagrams: 06/05/19 00:24 06/05/19 00:24 Vital Signs 06/04/19 21:30 Temperature 99.1 F Pulse Rate 74 Respiratory 16 Rate Blood Pressure 93/63 Lab Results 06/04/19 Range/Units 23:27 POC Glucose < 40 L (70-105) Vital Signs 06/04/19 06/04/19 06/04/19 21:30 23:06 23:16 Temperature 99.1 F Pulse Rate 74 Respiratory 16 Rate Blood Pressure 93/63 O2 Sat by Pulse 100 98 Oximetry 06/04/19 06/05/19 06/05/19 23:30 00:02 00:16 Temperature Pulse Rate 74 71 Respiratory 16 13 Rate Blood Pressure 70/34 O2 Sat by Pulse 100 100 Oximetry 06/05/19 06/05/19 06/05/19 00:30 00:46 01:00 Temperature Pulse Rate 74 74 71 Respiratory 14 13 11 L Rate Blood Pressure 93/45 92/47 89/49 O2 Sat by Pulse 100 100 100 Oximetry 06/05/19 01:15 Temperature Pulse Rate 72 Respiratory 12 Rate Blood Pressure 90/52 O2 Sat by Pulse 100 Oximetry Lab Results 06/04/19 06/05/19 06/05/19 Range/Units 23:27 00:24 00:24 WBC 5.5 (4.5-11.0) K/mm3 RBC 2.85 L (3.65-5.03) M/mm3 Hgb 7.5 L (10.1-14.3) gm/dl Hct 24.4 L (30.3-42.9) % MCV 87 (79-97) fl MCH 26 L (28-32) pg MCHC 30 (30-34) % RDW 21.3 H (13.2-15.2) % Plt Count 187 (140-440) K/mm3 Lymph % (Auto) 16.9 (13.4-35.0) % [place] % (Auto) 8.0 H (0.0-7.3) % Eos % (Auto) 0.1 (0.0-4.3) % Baso % (Auto) 0.3 (0.0-1.8) % Lymph # 0.9 L (1.2-5.4) K/mm3 [place] # 0.4 (0.0-0.8) K/mm3 Eos # 0.0 (0.0-0.4) K/mm3 Baso # 0.0 (0.0-0.1) K/mm3 Seg Neutrophils % 74.7 H (40.0-70.0) % Seg Neutrophils # 4.0 (1.8-7.7) K/mm3 PT (12.2-14.9) Sec. INR (0.87-1.13) APTT (24.2-36.6) Sec. Sodium 142 (137-145) mmol/L Potassium 3.1 L (3.6-5.0) mmol/L Chloride 109.3 H (98-107) mmol/L Carbon Dioxide 22 (22-30) mmol/L Anion Gap 14 mmol/L BUN 11 (7-17) mg/dL Creatinine 0.5 L (0.7-1.2) mg/dL Estimated GFR > 60 ml/min BUN/Creatinine Ratio 22 % Glucose 117 H (65-100) mg/dL POC Glucose < 40 L (70-105) Calcium 7.3 L (8.4-10.2) mg/dL Magnesium 1.70 (1.7-2.3) mg/dL Total Bilirubin 0.20 (0.1-1.2) mg/dL AST 11 (5-40) units/L ALT 14 (7-56) units/L Alkaline Phosphatase 158 H (35-129) units/L Total Creatine Kinase 30 (30-135) units/L Total Protein 4.7 L (6.3-8.2) g/dL Albumin 2.3 L (3.9-5) g/dL Albumin/Globulin Ratio 1.0 % TSH (0.270-4.200) mlU/mL Salicylates (2.8-20.0) mg/dL Acetaminophen (10.0-30.0) ug/mL 06/05/19 06/05/19 06/05/19 Range/Units 00:24 00:24 00:24 WBC (4.5-11.0) K/mm3 RBC (3.65-5.03) M/mm3 Hgb (10.1-14.3) gm/dl Hct (30.3-42.9) % MCV (79-97) fl MCH (28-32) pg MCHC (30-34) % RDW (13.2-15.2) % Plt Count (140-440) K/mm3 Lymph % (Auto) (13.4-35.0) % [place] % (Auto) (0.0-7.3) % Eos % (Auto) (0.0-4.3) % Baso % (Auto) (0.0-1.8) % Lymph # (1.2-5.4) K/mm3 [place] # (0.0-0.8) K/mm3 Eos # (0.0-0.4) K/mm3 Baso # (0.0-0.1) K/mm3 Seg Neutrophils % (40.0-70.0) % Seg Neutrophils # (1.8-7.7) K/mm3 PT (12.2-14.9) Sec. INR (0.87-1.13) APTT (24.2-36.6) Sec. Sodium (137-145) mmol/L Potassium (3.6-5.0) mmol/L Chloride (98-107) mmol/L Carbon Dioxide (22-30) mmol/L Anion Gap mmol/L BUN (7-17) mg/dL Creatinine (0.7-1.2) mg/dL Estimated GFR ml/min BUN/Creatinine Ratio % Glucose (65-100) mg/dL POC Glucose (70-105) Calcium (8.4-10.2) mg/dL Magnesium (1.7-2.3) mg/dL Total Bilirubin (0.1-1.2) mg/dL AST (5-40) units/L ALT (7-56) units/L Alkaline Phosphatase (35-129) units/L Total Creatine Kinase (30-135) units/L Total Protein (6.3-8.2) g/dL Albumin (3.9-5) g/dL Albumin/Globulin Ratio % TSH 3.140 (0.270-4.200) mlU/mL Salicylates 0.3 L (2.8-20.0) mg/dL Acetaminophen 5.0 L (10.0-30.0) ug/mL 06/05/19 Range/Units 00:24 WBC (4.5-11.0) K/mm3 RBC (3.65-5.03) M/mm3 Hgb (10.1-14.3) gm/dl Hct (30.3-42.9) % MCV (79-97) fl MCH (28-32) pg MCHC (30-34) % RDW (13.2-15.2) % Plt Count (140-440) K/mm3 Lymph % (Auto) (13.4-35.0) % [place] % (Auto) (0.0-7.3) % Eos % (Auto) (0.0-4.3) % Baso % (Auto) (0.0-1.8) % Lymph # (1.2-5.4) K/mm3 [place] # (0.0-0.8) K/mm3 Eos # (0.0-0.4) K/mm3 Baso # (0.0-0.1) K/mm3 Seg Neutrophils % (40.0-70.0) % Seg Neutrophils # (1.8-7.7) K/mm3 PT 18.0 H (12.2-14.9) Sec. INR 1.53 H (0.87-1.13) APTT 35.5 (24.2-36.6) Sec. Sodium (137-145) mmol/L Potassium (3.6-5.0) mmol/L Chloride (98-107) mmol/L Carbon Dioxide (22-30) mmol/L Anion Gap mmol/L BUN (7-17) mg/dL Creatinine (0.7-1.2) mg/dL Estimated GFR ml/min BUN/Creatinine Ratio % Glucose (65-100) mg/dL POC Glucose (70-105) Calcium (8.4-10.2) mg/dL Magnesium (1.7-2.3) mg/dL Total Bilirubin (0.1-1.2) mg/dL AST (5-40) units/L ALT (7-56) units/L Alkaline Phosphatase (35-129) units/L Total Creatine Kinase (30-135) units/L Total Protein (6.3-8.2) g/dL Albumin (3.9-5) g/dL Albumin/Globulin Ratio % TSH (0.270-4.200) mlU/mL Salicylates (2.8-20.0) mg/dL Acetaminophen (10.0-30.0) ug/mL - Radiology Data Radiology results: pending Critical care attestation.: If time is entered above; I have spent that time in minutes in the direct care of this critically ill patient, excluding procedure time. ED Disposition Clinical Impression: Hypoglycemia, Encephalopathy Disposition: OP ADMIT IP TO THIS HOSP Is pt being admited?: Yes Condition: Fair Referrals: SANTIAGO MORGAN MD [Primary Care Provider] - 3-5 Days
[2019-06-04] MEDS ORDERED: D50W (25GM) Syringe IV ONE ×2 (23:21→23:25)
[2019-06-05] MEDS ORDERED: NACL 0.9% 1000 ML 1,000 ML IV ONE (00:55)
[2019-06-05] MEDS: D5/0.45NS 1,000 ML IV SCH ×2 (01:00→13:30)
[2019-06-05 01:24] LABS: Partial Thromboplastin Time 35.5 Sec. (24.2-36.6)
[2019-06-05 01:25] LABS: INR 1.53 (0.87-1.13)
[2019-06-05 01:30] LABS: Hematocrit 24.4 % (30.3-42.9); Hemoglobin 7.5 gm/dl (10.1-14.3); Mean Corpuscular HGB Conc 30 % (30-34); Mean Corpuscular Volume 87 fl (79-97); Red Blood Count 2.85 M/mm3 (3.65-5.03); Red Cell Distribution Width 21.3 % (13.2-15.2)
[2019-06-05 01:31] LABS: Basophils % (Auto) 0.3 % (0.0-1.8); Eosinophils % (Auto) 0.1 % (0.0-4.3); Lymphocytes # (Auto) 0.9 K/mm3 (1.2-5.4); Lymphocytes % (Auto) 16.9 % (13.4-35.0); Mean Platelet Volume 8 fl (6-12); Monocytes # (Auto) 0.4 K/mm3 (0.0-0.8); Platelet Count 187 K/mm3 (140-440)
[2019-06-05 01:45] LABS: Alanine Aminotransferase 14 units/L (7-56); Albumin 2.3 g/dL (3.9-5); BUN/Creatinine Ratio 22; Blood Urea Nitrogen 11 mg/dL (7-17); Calcium 7.3 mg/dL (8.4-10.2); Hemolysis Index 7
[2019-06-05] MEDS ORDERED: D50W (25GM) Syringe IV ONE (01:48)
[2019-06-05] MEDS: D50W (25GM) Vial IV PRN (01:53)
[2019-06-05 02:22] LABS: Mucus,Urine FEW /HPF
[2019-06-05 02:32] LABS: Color,Urine Yellow (Yellow)
--- NOTE | 2019-06-05 02:33 | Cat Scan Report ---
Head CT without intravenous contrast INDICATION: Closed head trauma tonight COMPARISON: None FINDINGS: The ventricles are normal in size and position. No hemorrhage or extra-axial fluid collecti on. No edema or mass effect. No focal infarct seen. Portions of the sinuses visualized are clear. No skull fracture identified. IMPRESSION: Negative head CT Automated exposure control was utilized to diminish radiation dose Signer Name: Giovani Ray MD Signed: 06/05/2019 2:29 AM Workstation Name: [id number]
[2019-06-05] MEDS: KCL 10MEQ/100ML 10 MEQ/100 ML BAG IV SCH ×3 (02:34→05:56)
[2019-06-05 02:36] LABS: Bilirubin,Urine Negative (Negative); Blood,Urine Negative (Negative)
--- NOTE | 2019-06-05 02:38 | Cat Scan Report ---
CT of the cervical spine INDICATION: Neck pain following fall tonight FINDINGS: The vertebral body heights and disc spaces are maintained. No fracture or subluxation. No s purring or facet arthropathy. No hematoma or soft tissue swelling. 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 No significant abnormality. IMPRESSION: Negative cervical spine CT.. All CT scans at this location are performed using CT dose reduction for ALARA by means of automated e xposure control Signer Name: Giovani Ray MD Signed: 06/05/2019 2:34 AM Workstation Name: [id number]
--- NOTE | 2019-06-05 02:46 | Cat Scan Report ---
CT of the abdomen and pelvis without contrast INDICATION: Abdominal pain COMPARISON: None FINDINGS: There is moderate basilar lung consolidation which has the appearance of pneumonia or aspir ation rather than atelectasis. No effusions are seen. There may have been prior gastric bypass. The l iver, spleen, pancreas, adrenal glands and kidneys show no gross abnormalities with a few pancreatic calcifications seen but no acute pancreatitis. Gallbladder is been removed. No biliary tree dilation. No fluid or adenopathy in the upper abdomen. CT of the pelvis shows no uterine or adnexal masses. No pelvic fluid or adenopathy. No bowel obstruct ion seen. Hardware is seen in the right hip. There is no definite fractures seen. There have been ashley or vertebroplasties. IMPRESSION: Basilar lung consolidation. No acute abnormality in the abdomen or pelvis. Automated exposure control was utilized to diminish radiation dose. Signer Name: Giovani Ray MD Signed: 06/05/2019 2:41 AM Workstation Name: [id number]
--- NOTE | 2019-06-05 02:47 | XRay Report ---
Right femur, 2 views INDICATION: Pain following fall tonight FINDINGS: Compression hip screw is in place with long length medullary barber in the femur. There is no acute fracture or dislocation. Signer Name: Giovani Ray MD Signed: 06/05/2019 2:43 AM Workstation Name: [id number]
--- NOTE | 2019-06-05 02:47 | XRay Report ---
CHEST 1 VIEW INDICATION / CLINICAL INFORMATION: weak hypoclycemia. COMPARISON: None available. FINDINGS: SUPPORT DEVICES: None. HEART / MEDIASTINUM: No significant abnormality. LUNGS / PLEURA: Low lung volumes are seen with moderate lung consolidation present. No pneumothorax. ADDITIONAL FINDINGS: No significant additional findings. IMPRESSION: 1. Findings may be due to edema or pneumonia. Signer Name: Giovani Ray MD Signed: 06/05/2019 2:42 AM Workstation Name: [id number]
--- NOTE | 2019-06-05 02:50 | XRay Report ---
AP pelvis INDICATION: Pain following fall tonight FINDINGS: Compression hip screw is seen in the right hip. There is no right hip fracture. There are s everal fracture lines involving the left greater trochanter however. No definite pelvic fracture. IMPRESSION: Left trochanteric fractures. Signer Name: Giovani Ray MD Signed: 06/05/2019 2:46 AM Workstation Name: [id number]
[2019-06-05] MEDS ORDERED: ZITHROMAX 500 MG in NACL 0.9% 250ML 250 ML IV ONE (04:13)
[2019-06-05] MEDS ORDERED: ROCEPHIN/NS 1 GM/50 ML 1 GM/50 ML BAG IV ONE (04:13)
[2019-06-05] MEDS ORDERED: TORADOL IV ONE (05:30)
--- NOTE | 2019-06-05 05:41 | XRay Report ---
Right shoulder, 3 views INDICATION: Pain after fall today FINDINGS: There is an old healed fracture of the surgical neck of the humerus but no acute fracture o r dislocation seen. Signer Name: Giovani Ray MD Signed: 06/05/2019 5:37 AM Workstation Name: [id number]
--- NOTE | 2019-06-05 05:42 | XRay Report ---
Right tibia and fibula, 2 views INDICATION: Pain following fall today FINDINGS: The tibia and fibula are intact with no fractures seen. There is osteoporosis and generaliz ed muscle wasting. Signer Name: Giovani Ray MD Signed: 06/05/2019 5:38 AM Workstation Name: [id number]
[2019-06-05] MEDS ORDERED: PERCOCET 5/325 PO PRN (08:30)
[2019-06-05] MEDS ORDERED: SODIUM CHLORIDE FLUSH SYRINGE 10 ML IV PRN (08:30)
[2019-06-05] MEDS ORDERED: ZOFRAN IV PRN (08:30)
[2019-06-05] MEDS ORDERED: TYLENOL PO PRN (08:30)
[2019-06-05] MEDS ORDERED: MORPHINE IV PRN ×2 (08:30→13:45)
--- NOTE | 2019-06-05 08:44 | History and Physical Report ---
History of Present Illness Date of admission: 06/05/19 06:03 Chief complaint: i fell and my left side hurts History of present illness: 39F who presents sp fall. She has hx of multiple falls in the past and multiple fractures -she was chasing one of her kids and fell and heard a snap and now has severe pain in Left shoulder and left hip - she denies cp, loc, or palpitations, states it was a mechanical fall Review Of Systems: Constitutional: no weight loss Ears, eyes, nose, mouth and throat: no nasal congestion, no nasal discharge, no sinus pressure, blurry vision, diplopia Neck: No neck pain or rigidity. Cardiovascular: chest pain, orthopnea, palpitations Respiratory: No shortness of breath, cough Gastrointestinal: no abdominal pain, hematochezia Genitourinary : no dysuria, frequency , hematuria [facility]; admits to amenorrhea x 3 years Musculoskeletal: no muscle ache Integumentary: no rash, no pruritis Neurological: no parathesias, focal weakness Endocrine: no cold or heat intolerance, no polyuria or polydipsia, Hematologic/Lymphatic: no easy bruising, no easy bleeding, no gland swelling Allergic/Immunologic: no urticaria, no angioedema. PAST MEDICAL HISTORY: diabetes complicated by gastroparesis, depression, pancreatitis PAST SURGICAL HISTORY: Tubal ligation, 1, gastric bypass, cholecystectomy, repair of multiple long bone fractures FAILY HISTORY: Diabetes SOCIAL HISTORY: Smokes half pack a day, no alcohol or drugs Medications and Allergies Allergies Allergy/AdvReac Type Severity Reaction Status Date / Time ketorolac [From Toradol] Allergy Unknown Verified 06/05/19 06:56 tramadol Allergy Unknown Verified 06/05/19 06:56 Penicillins AdvReac Unknown Verified 06/07/19 13:38 IV CONTRAST AdvReac Unknown Uncoded 06/07/19 13:38 Home Medications Medication Instructions Recorded Confirmed Last Taken Type Gabapentin [Neurontin] 300 mg PO BID 09/22/17 06/06/19 Unknown History Insulin Aspart [NovoLOG Flexpen] 10 units SQ AC 09/22/17 06/06/19 Unknown History Rivaroxaban [Xarelto] 20 mg PO DAILY 09/22/17 06/06/19 Unknown History Detemir (Nf) [Levemir (Nf)] 10 units SUB-Q QHS #1 vial 09/23/17 06/06/19 Unknown Rx Venlafaxine Xr [Effexor XR] 75 mg PO QDAY capsule 09/23/17 06/06/19 Unknown Rx Active Meds: Active Medications Acetaminophen (Tylenol) 650 mg PO Q4H PRN PRN Reason: Pain MILD(1-3)/Fever >100.5/ROQUE Dextrose (D50w (25gm) Vial) 50 gm IV PRN PRN PRN Reason: Hypoglycemia Last Admin: 06/05/19 01:53 Dose: 50 gm Documented by: Enoxaparin Sodium (Lovenox) 40 mg SUB-Q QDAY@2200 JERMAN Gabapentin (Neurontin) 300 mg PO BID JERMAN Dextrose/Sodium Chloride (D5/0.45ns) 1,000 mls @ 100 mls/hr IV DIRECT JERMAN Last Admin: 06/05/19 01:00 Dose: 100 mls/hr Documented by: Sodium Chloride (Nacl 0.45% 1000 Ml) 1,000 mls @ 42 mls/hr IV DIRECT JERMAN Insulin Human Lispro (Humalog) 0 unit SUB-Q ACHS JERMAN; Protocol Miscellaneous Medication (Detemir (Nf)) 10 units SUB-Q QHS JERMAN Morphine Sulfate (Morphine) 2 mg IV Q4H PRN PRN Reason: Pain, Moderate (4-6) Ondansetron HCl (Zofran) 4 mg IV Q8H PRN PRN Reason: Nausea And Vomiting Oxycodone/Acetaminophen (Percocet 5/325) 1 tab PO Q6H PRN PRN Reason: Pain, Moderate (4-6) Sodium Chloride (Sodium Chloride Flush Syringe 10 Ml) 10 ml IV BID JERMAN Sodium Chloride (Sodium Chloride Flush Syringe 10 Ml) 10 ml IV PRN PRN PRN Reason: LINE FLUSH Venlafaxine HCl (Effexor Xr) 75 mg PO QDAY JERMAN Exam - Constitutional Vitals: Temp Pulse Resp BP Pulse Ox 98.2 F 89 13 111/71 100 06/05/19 07:15 06/05/19 07:15 06/05/19 07:17 06/05/19 07:15 06/05/19 07:17 General appearance: Present: severe distress, cachectic, disheveled - EENT Eyes: Present: PERRL ENT: hearing intact, clear oral mucosa - Neck Neck: Present: supple, normal ROM - Respiratory Respiratory effort: normal Respiratory: bilateral: CTA - Cardiovascular Heart Sounds: Present: S1 & S2. Absent: rub, click - Extremities Extremities: pulses symmetrical, No edema Extremity abnormal: other (tenderness and decreased rom of L shoulder and Left hip) Peripheral Pulses: within normal limits - Abdominal General gastrointestinal: Present: soft, non-tender, non-distended, normal bowel sounds Female genitourinary: Present: normal - Integumentary Integumentary: Present: clear, warm, dry - Musculoskeletal Musculoskeletal: gait normal, strength equal bilaterally - Psychiatric Psychiatric: appropriate mood/affect, intact judgment & insight - Neurologic Neurologic: CNII-XII intact, moves all extremities Results - Labs CBC & Chem 7: 06/07/19 05:57 06/07/19 05:57 Labs: Laboratory Last Values WBC 5.5 K/mm3 (4.5-11.0) 06/05/19 00:24 RBC 2.85 M/mm3 (3.65-5.03) L 06/05/19 00:24 Hgb 7.5 gm/dl (10.1-14.3) L 06/05/19 00:24 Hct 24.4 % (30.3-42.9) L 06/05/19 00:24 MCV 87 fl (79-97) 06/05/19 00:24 MCH 26 pg (28-32) L 06/05/19 00:24 MCHC 30 % (30-34) 06/05/19 00:24 RDW 21.3 % (13.2-15.2) H 06/05/19 00:24 Plt Count 187 K/mm3 (140-440) 06/05/19 00:24 Lymph % (Auto) 16.9 % (13.4-35.0) 06/05/19 00:24 [place] % (Auto) 8.0 % (0.0-7.3) H 06/05/19 00:24 Eos % (Auto) 0.1 % (0.0-4.3) 06/05/19 00:24 Baso % (Auto) 0.3 % (0.0-1.8) 06/05/19 00:24 Lymph # 0.9 K/mm3 (1.2-5.4) L 06/05/19 00:24 [place] # 0.4 K/mm3 (0.0-0.8) 06/05/19 00:24 Eos # 0.0 K/mm3 (0.0-0.4) 06/05/19 00:24 Baso # 0.0 K/mm3 (0.0-0.1) 06/05/19 00:24 Seg Neutrophils % 74.7 % (40.0-70.0) H 06/05/19 00:24 Seg Neutrophils # 4.0 K/mm3 (1.8-7.7) 06/05/19 00:24 PT 18.0 Sec. (12.2-14.9) H 06/05/19 00:24 INR 1.53 (0.87-1.13) H 06/05/19 00:24 APTT 35.5 Sec. (24.2-36.6) 06/05/19 00:24 Sodium 142 mmol/L (137-145) 06/05/19 00:24 Potassium 3.1 mmol/L (3.6-5.0) L 06/05/19 00:24 Chloride 109.3 mmol/L (98-107) H 06/05/19 00:24 Carbon Dioxide 22 mmol/L (22-30) 06/05/19 00:24 14 mmol/L 06/05/19 00:24 BUN 11 mg/dL (7-17) 06/05/19 00:24 0.5 mg/dL (0.7-1.2) L 06/05/19 00:24 Estimated GFR > 60 ml/min 06/05/19 00:24 22 % 06/05/19 00:24 Glucose 117 mg/dL (65-100) H 06/05/19 00:24 POC Glucose 328 (70-105) H 06/05/19 08:03 Lactic Acid 3.90 mmol/L (0.7-2.0) H* 06/05/19 03:35 Calcium 7.3 mg/dL (8.4-10.2) L 06/05/19 00:24 Magnesium 1.70 mg/dL (1.7-2.3) 06/05/19 00:24 0.20 mg/dL (0.1-1.2) 06/05/19 00:24 AST 11 units/L (5-40) 06/05/19 00:24 ALT 14 units/L (7-56) 06/05/19 00:24 158 units/L (35-129) H 06/05/19 00:24 30 units/L (30-135) 06/05/19 00:24 4.7 g/dL (6.3-8.2) L 06/05/19 00:24 2.3 g/dL (3.9-5) L 06/05/19 00:24 1.0 % 06/05/19 00:24 TSH 3.140 mlU/mL (0.270-4.200) 06/05/19 00:24 HCG, Quant 1.37 mIU/mL (0-4) 06/05/19 00:24 Yellow (Yellow) 06/04/19 Unknown Clear (Clear) 06/04/19 Unknown 7.0 (5.0-7.0) 06/04/19 Unknown Ur Specific [place] 1.012 (1.003-1.030) 06/04/19 Unknown 30 mg/dl mg/dL (Negative) 06/04/19 Unknown Trace mg/dL (Negative) 06/04/19 Unknown Negative mg/dL (Negative) 06/04/19 Unknown Negative (Negative) 06/04/19 Unknown Negative (Negative) 06/04/19 Unknown Ur Reducing Substances Not Reportable 06/04/19 Unknown Negative (Negative) 06/04/19 Unknown Not Reportable 06/04/19 Unknown 0.0 mg/dL (<2.0) 06/04/19 Unknown Ur Leukocyte Esterase Negative (Negative) 06/04/19 Unknown 1.0 /HPF (0.0-6.0) 06/04/19 Unknown 1.0 /HPF (0.0-6.0) 06/04/19 Unknown Few /HPF 06/04/19 Unknown Salicylates 0.3 mg/dL (2.8-20.0) L 06/05/19 00:24 Acetaminophen 5.0 ug/mL (10.0-30.0) L 06/05/19 00:24 Plasma/Serum Alcohol 0.01 % (0-0.07) 06/05/19 00:24 Assessment and Plan Assessment and plan: 39F w hx of multiple falls and multiple fx who prestents sp fall with fractures Left hip fracture and left humerus pain meds, ortho consult PNA -abx hx of LE dvt restart xarelto when safe to do so after surgery DM SSi, lantus, check a1c FTT -unable to care for self, will need PT consult after sx -has had multiple surgeries and falls, CM mgt consult and may need placement Morbid obesity, with protein malnutrition behavioral scientist consult Amenorrhea check FSH, LH, will need cook pickled meat consult after surgery Anemia of chronic disease TSH wnl, stable and chronic DVT ppx lovenox DIspo; currently in extended stay hotel, and is not interested in rehab placement, will need PT after surgery
[2019-06-05] MEDS: NEURONTIN PO SCH ×2 (11:12→21:30)
[2019-06-05] MEDS: EFFEXOR XR PO SCH (11:13)
[2019-06-05] MEDS ORDERED: BENADRYL PO PRN (12:19)
[2019-06-05] MEDS ORDERED: DILAUDID IV PRN (12:19)
[2019-06-05] MEDS: HumaLOG SUB-Q SCH ×2 (12:25→18:33)
--- NOTE | 2019-06-05 12:37 | Consultation ---
History of Present Illness - HPI Consult date: 06/05/19 Consult reason: fracture History of present illness: 39 y/o female with c/o left hip and shoulder pain after fall yesterday... Medications and Allergies Allergies Allergy/AdvReac Type Severity Reaction Status Date / Time ketorolac [From Toradol] Allergy Unknown Verified 06/05/19 06:56 tramadol Allergy Unknown Verified 06/05/19 06:56 Home Medications Medication Instructions Recorded Confirmed Last Taken Type Gabapentin [Neurontin] 300 mg PO BID 09/22/17 09/22/17 Unknown History Insulin Aspart [NovoLOG Flexpen] 10 units SQ AC 09/22/17 09/22/17 Unknown History Rivaroxaban [Xarelto] 20 mg PO DAILY 09/22/17 09/22/17 Unknown History Detemir (Nf) [Levemir (Nf)] 10 units SUB-Q QHS #1 vial 09/23/17 Unknown Rx Venlafaxine Xr [Effexor XR] 75 mg PO QDAY capsule 09/23/17 Unknown Rx Active Meds: Active Medications Acetaminophen (Tylenol) 650 mg PO Q4H PRN PRN Reason: Pain MILD(1-3)/Fever >100.5/ROQUE Dextrose (D50w (25gm) Vial) 50 gm IV PRN PRN PRN Reason: Hypoglycemia Last Admin: 06/05/19 01:53 Dose: 50 gm Documented by: Diphenhydramine HCl (Benadryl) 25 mg PO Q6H PRN PRN Reason: Itching Enoxaparin Sodium (Lovenox) 40 mg SUB-Q QDAY@2200 JERMAN Gabapentin (Neurontin) 300 mg PO BID JERMAN Hydromorphone HCl (Dilaudid) 0.5 mg IV Q3H PRN PRN Reason: Pain , Severe (7-10) Dextrose/Sodium Chloride (D5/0.45ns) 1,000 mls @ 100 mls/hr IV DIRECT JERMAN Last Admin: 06/05/19 01:00 Dose: 100 mls/hr Documented by: Sodium Chloride (Nacl 0.45% 1000 Ml) 1,000 mls @ 42 mls/hr IV DIRECT JERMAN Ceftriaxone Sodium (Rocephin/Ns 1 Gm/50 Ml) 1 gm in 50 mls @ 100 mls/hr IV Q24HR JERMAN; Protocol Azithromycin 500 mg/ Sodium (Chloride) 250 mls @ 250 mls/hr IV Q24HR JERMAN; Protocol Insulin Glargine (Lantus) 10 units SUB-Q QHS JERMAN Insulin Human Lispro (Humalog) 0 unit SUB-Q ACHS JERMAN; Protocol Last Admin: 06/05/19 12:25 Dose: 5 unit Documented by: Ondansetron HCl (Zofran) 4 mg IV Q8H PRN PRN Reason: Nausea And Vomiting Oxycodone/Acetaminophen (Percocet 5/325) 1 tab PO Q6H PRN PRN Reason: Pain, Moderate (4-6) Sodium Chloride (Sodium Chloride Flush Syringe 10 Ml) 10 ml IV BID JERMAN Sodium Chloride (Sodium Chloride Flush Syringe 10 Ml) 10 ml IV PRN PRN PRN Reason: LINE FLUSH Venlafaxine HCl (Effexor Xr) 75 mg PO QDAY JERMAN Assessment and Plan left intertrochanteric hip fracture
[2019-06-05] MEDS: ROCEPHIN/NS 1 GM/50 ML 1 GM/50 ML BAG IV SCH (12:46)
[2019-06-05] MEDS: SODIUM CHLORIDE FLUSH SYRINGE 10 ML IV SCH ×2 (13:12→21:31)
[2019-06-05] MEDS ORDERED: TORADOL IV PRN (13:44)
--- NOTE | 2019-06-05 15:12 | XRay Report ---
XR shoulder 2+V LT INDICATION / CLINICAL INFORMATION: Left shoulder pain after fall. COMPARISON: None available. FINDINGS: BONES/JOINT(S): There is a mildly displaced fracture of the proximal left humeral diametaphysis with anterior apex angulation. 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 SOFT TISSUES: No significant abnormality. ADDITIONAL FINDINGS: None. Signer Name: Sinan Becerra MD Signed: 06/05/2019 3:08 PM Workstation Name: [id number]
[2019-06-05] MEDS ORDERED: XANAX PO ONE (16:41)
[2019-06-05] MEDS: DILAUDID IV PRN ×2 (17:37→21:31)
[2019-06-05] MEDS: BENADRYL IV PRN (17:38)
[2019-06-05] MEDS: XANAX PO SCH (21:30)
[2019-06-05] MEDS: BUSPAR PO SCH (21:30)
[2019-06-05] MEDS: LOVENOX SUB-Q SCH (21:31)
[2019-06-05] MEDS ORDERED: NON-FORMULARY (Detemir (Nf) 10 UNITS) SUB-Q SCH (22:00)
[2019-06-05] MEDS ORDERED: LANTUS SUB-Q SCH (22:00)
[2019-06-06] MEDS: D5/0.45NS 1,000 ML IV SCH (00:43)
[2019-06-06] MEDS: HumaLOG SUB-Q SCH ×5 (00:45→17:43)
[2019-06-06] MEDS: DILAUDID IV PRN ×4 (04:33→22:13)
[2019-06-06] MEDS: BENADRYL IV PRN ×2 (04:33→11:24)
[2019-06-06 04:52] LABS: BUN/Creatinine Ratio 20; Blood Urea Nitrogen 12 mg/dL (7-17); Calcium 7.4 mg/dL (8.4-10.2); Hemolysis Index 19
[2019-06-06 05:59] LABS: Hematocrit 24.8 % (30.3-42.9); Hemoglobin 7.6 gm/dl (10.1-14.3); Mean Corpuscular HGB Conc 31 % (30-34); Mean Corpuscular Volume 86 fl (79-97); Mean Platelet Volume 8.3 fl (6-12); Platelet Count 142 K/mm3 (140-440); Red Blood Count 2.88 M/mm3 (3.65-5.03); Red Cell Distribution Width 21.8 % (13.2-15.2)
[2019-06-06 06:00] LABS: Basophils % (Auto) 0.5 % (0.0-1.8); Eosinophils % (Auto) 0.9 % (0.0-4.3); Lymphocytes # (Auto) 1.1 K/mm3 (1.2-5.4); Lymphocytes % (Auto) 27.3 % (13.4-35.0); Monocytes # (Auto) 0.3 K/mm3 (0.0-0.8); Monocytes % (Auto) 8.9 % (0.0-7.3)
[2019-06-06] MEDS ORDERED: NACL 0.9% 500 ML 500 ML IV ONE (09:00)
[2019-06-06] MEDS ORDERED: HumuLIN R SUB-Q ONE (09:30)
--- NOTE | 2019-06-06 10:19 | Progress Note ---
Assessment and Plan Assessment and plan: Left hip fracture/left shoulder fracture pain meds, ortho consult, to OR tomorrow after transfusion PNA -abx hx of LE dvt restart xarelto when safe to do so after surgery DM with persitent hyperglycemia elevated glc likely due to Dextrose, has been dc, cont ssi FTT -unable to care for self, will need PT consult after sx -has had multiple surgeries and falls, CM mgt consult and may need placement Morbid obesity, with protein malnutrition electronic prepress technician consult Anemia of chronic disease tsh wnl, 2 units prbc, dw Anesthesiologis DVT ppx lovenox Hospitalist Physical - Physical exam Narrative exam: General appearance: Present: severe distress, cachectic, disheveled - EENT Eyes: Present: PERRL ENT: hearing intact, clear oral mucosa - Neck Neck: Present: supple, normal ROM - Respiratory Respiratory effort: normal Respiratory: bilateral: CTA - Cardiovascular Heart Sounds: Present: S1 & S2. Absent: rub, click - Extremities Extremities: pulses symmetrical, No edema Extremity abnormal: other (tenderness and decreased rom of L shoulder and Left hip) Peripheral Pulses: within normal limits - Abdominal General gastrointestinal: Present: soft, non-tender, non-distended, normal bowel sounds Female genitourinary: Present: normal - Integumentary Integumentary: Present: clear, warm, dry - Musculoskeletal Musculoskeletal: gait normal, strength equal bilaterally - Psychiatric Psychiatric: appropriate mood/affect, intact judgment & insight - Neurologic Neurologic: CNII-XII intact, moves all extremities - Constitutional Vitals: Temp Pulse Resp BP Pulse Ox 98.4 F 65 18 103/51 96 06/06/19 04:26 06/06/19 04:26 06/06/19 04:26 06/06/19 04:26 06/06/19 04:26 Results - Labs CBC & Chem 7: 06/07/19 05:57 06/07/19 05:57 Labs: Laboratory Last Values WBC 3.9 K/mm3 (4.5-11.0) L 06/06/19 04:18 RBC 2.88 M/mm3 (3.65-5.03) L 06/06/19 04:18 Hgb 7.6 gm/dl (10.1-14.3) L 06/06/19 04:18 Hct 24.8 % (30.3-42.9) L 06/06/19 04:18 MCV 86 fl (79-97) 06/06/19 04:18 MCH 26 pg (28-32) L 06/06/19 04:18 MCHC 31 % (30-34) 06/06/19 04:18 RDW 21.8 % (13.2-15.2) H 06/06/19 04:18 Plt Count 142 K/mm3 (140-440) 06/06/19 04:18 Lymph % (Auto) 27.3 % (13.4-35.0) 06/06/19 04:18 [place] % (Auto) 8.9 % (0.0-7.3) H 06/06/19 04:18 Eos % (Auto) 0.9 % (0.0-4.3) 06/06/19 04:18 Baso % (Auto) 0.5 % (0.0-1.8) 06/06/19 04:18 Lymph # 1.1 K/mm3 (1.2-5.4) L 06/06/19 04:18 [place] # 0.3 K/mm3 (0.0-0.8) 06/06/19 04:18 Eos # 0.0 K/mm3 (0.0-0.4) 06/06/19 04:18 Baso # 0.0 K/mm3 (0.0-0.1) 06/06/19 04:18 Seg Neutrophils % 62.4 % (40.0-70.0) 06/06/19 04:18 Seg Neutrophils # 2.4 K/mm3 (1.8-7.7) 06/06/19 04:18 PT 18.0 Sec. (12.2-14.9) H 06/05/19 00:24 INR 1.53 (0.87-1.13) H 06/05/19 00:24 APTT 35.5 Sec. (24.2-36.6) 06/05/19 00:24 Sodium 136 mmol/L (137-145) L 06/06/19 04:18 Potassium 4.7 mmol/L (3.6-5.0) D 06/06/19 04:18 Chloride 105.6 mmol/L (98-107) 06/06/19 04:18 Carbon Dioxide 22 mmol/L (22-30) 06/06/19 04:18 13 mmol/L 06/06/19 04:18 BUN 12 mg/dL (7-17) 06/06/19 04:18 0.6 mg/dL (0.7-1.2) L 06/06/19 04:18 Estimated GFR > 60 ml/min 06/06/19 04:18 20 % 06/06/19 04:18 Glucose 478 mg/dL (65-100) H 06/06/19 04:18 POC Glucose 484 (70-105) H 06/06/19 08:33 10.9 % (4-6) H 06/05/19 00:26 Lactic Acid 2.60 mmol/L (0.7-2.0) H* 06/05/19 12:32 Calcium 7.4 mg/dL (8.4-10.2) L 06/06/19 04:18 Magnesium 1.70 mg/dL (1.7-2.3) 06/05/19 00:24 0.20 mg/dL (0.1-1.2) 06/05/19 00:24 AST 11 units/L (5-40) 06/05/19 00:24 ALT 14 units/L (7-56) 06/05/19 00:24 158 units/L (35-129) H 06/05/19 00:24 30 units/L (30-135) 06/05/19 00:24 4.7 g/dL (6.3-8.2) L 06/05/19 00:24 2.3 g/dL (3.9-5) L 06/05/19 00:24 1.0 % 06/05/19 00:24 TSH 3.140 mlU/mL (0.270-4.200) 06/05/19 00:24 HCG, Quant 1.37 mIU/mL (0-4) 06/05/19 00:24 Yellow (Yellow) 06/04/19 Unknown Clear (Clear) 06/04/19 Unknown 7.0 (5.0-7.0) 06/04/19 Unknown Ur Specific [place] 1.012 (1.003-1.030) 06/04/19 Unknown 30 mg/dl mg/dL (Negative) 06/04/19 Unknown Trace mg/dL (Negative) 06/04/19 Unknown Negative mg/dL (Negative) 06/04/19 Unknown Negative (Negative) 06/04/19 Unknown Negative (Negative) 06/04/19 Unknown Ur Reducing Substances Not Reportable 06/04/19 Unknown Negative (Negative) 06/04/19 Unknown Not Reportable 06/04/19 Unknown 0.0 mg/dL (<2.0) 06/04/19 Unknown Ur Leukocyte Esterase Negative (Negative) 06/04/19 Unknown 1.0 /HPF (0.0-6.0) 06/04/19 Unknown 1.0 /HPF (0.0-6.0) 06/04/19 Unknown Few /HPF 06/04/19 Unknown Salicylates 0.3 mg/dL (2.8-20.0) L 06/05/19 00:24 Acetaminophen 5.0 ug/mL (10.0-30.0) L 06/05/19 00:24 Plasma/Serum Alcohol 0.01 % (0-0.07) 06/05/19 00:24 Active Medications - Current Medications Current Medications: Generic Name Dose Route Start Last Admin Trade Name Freq PRN Reason Stop Dose Admin Acetaminophen 650 mg 06/05/19 08:30 Tylenol PO Q4H PRN Pain MILD(1-3)/Fever >100.5/ROQUE Alprazolam 2 mg 06/05/19 22:00 06/05/19 21:30 Xanax PO 2 mg BID JERMAN Administration Buspirone HCl 7.5 mg 06/05/19 22:00 06/05/19 21:30 Buspar PO 7.5 mg BID JERMAN Administration Dextrose 50 gm 06/04/19 23:21 06/05/19 01:53 D50w (25gm) Vial IV 50 gm PRN PRN Administration Hypoglycemia Diphenhydramine HCl 25 mg 06/05/19 16:37 06/06/19 04:33 Benadryl IV 25 mg Q6H PRN Administration Itching Enoxaparin Sodium 40 mg 06/05/19 22:00 06/05/19 21:31 Lovenox SUB-Q 40 mg QDAY@2200 JERMAN Administration Gabapentin 300 mg 06/05/19 10:00 06/05/19 21:30 Neurontin PO 300 mg BID JERMAN Administration Hydromorphone HCl 1 mg 06/05/19 16:35 Dilaudid IV Q3H PRN Pain , Severe (7-10) Hydromorphone HCl 2 mg 06/05/19 16:35 06/06/19 08:49 Dilaudid IV 2 mg Q4H PRN Administration Pain , Severe (7-10) Dextrose/Sodium Chloride 1,000 mls @ 100 mls/hr 06/04/19 23:45 06/06/19 00:43 D5/0.45ns IV 100 mls/hr DIRECT JERMAN Administration Sodium Chloride 1,000 mls @ 42 mls/hr 06/05/19 09:00 Nacl 0.45% 1000 Ml IV DIRECT JERMAN Ceftriaxone Sodium 1 gm in 50 mls @ 100 mls/hr 06/05/19 11:00 06/05/19 12:46 Rocephin/Ns 1 Gm/50 Ml IV 100 mls/hr Q24HR JERMAN Administration Protocol Azithromycin 500 mg/ Sodium 250 mls @ 250 mls/hr 06/06/19 10:00 Chloride IV Q24HR [facility] Protocol Insulin Glargine 10 units 06/05/19 22:00 06/05/19 21:30 Lantus SUB-Q 10 units QHS JERMAN Administration Insulin Human Lispro 0 unit 06/05/19 11:30 06/06/19 09:53 Humalog SUB-Q Not Given ACHS [facility] Protocol Ketorolac Tromethamine 15 mg 06/05/19 13:44 Toradol IV 06/10/19 13:43 Q6H PRN Pain, Mild (1-3) Morphine Sulfate 4 mg 06/05/19 13:45 06/05/19 15:16 Morphine IV 4 mg Q4H PRN Administration Pain , Severe (7-10) Ondansetron HCl 4 mg 06/05/19 08:30 Zofran IV Q8H PRN Nausea And Vomiting Oxycodone HCl 10 mg 06/05/19 16:39 Roxicodone PO Q4H PRN Pain, Moderate (4-6) Oxycodone/Acetaminophen 1 tab 06/05/19 08:30 Percocet 5/325 PO Q6H PRN Pain, Moderate (4-6) Sodium Chloride 10 ml 06/05/19 10:00 06/05/19 21:31 Sodium Chloride Flush Syringe 10 Ml IV 10 ml BID JERMAN Administration Sodium Chloride 10 ml 06/05/19 08:30 06/06/19 04:37 Sodium Chloride Flush Syringe 10 Ml IV 10 ml PRN PRN Administration LINE FLUSH Venlafaxine HCl 75 mg 06/05/19 11:00 06/05/19 11:13 Effexor Xr PO Not Given QDAY JERMAN Nutrition/Malnutrition Assess - Dietary Evaluation Nutrition/Malnutrition Findings: Nutrition Notes Start: 06/05/19 13:42 Freq: Status: Active Protocol: Document 06/05/19 13:43 LP (Rec: 06/05/19 13:44 LP [id number]) Nutrition Notes Need for Assessment generated from: MD Order Initial or Follow up Brief Note Current Diagnosis Diabetes Other Pertinent Diagnosis pancreatitis and hx gastric bypass Subjective/Other Information Consult for diet education. Pt sleeping at time of visit. Nutrition Intervention Follow-Up By: 06/08/19 Additional Comments Follow for diet education needs
[2019-06-06] MEDS: EFFEXOR XR PO SCH (11:48)
[2019-06-06] MEDS: XANAX PO SCH ×2 (11:48→22:12)
[2019-06-06] MEDS: BUSPAR PO SCH ×2 (11:49→22:11)
[2019-06-06] MEDS: NEURONTIN PO SCH ×2 (11:49→22:12)
[2019-06-06] MEDS: SODIUM CHLORIDE FLUSH SYRINGE 10 ML IV SCH ×2 (11:50→23:45)
[2019-06-06] MEDS: ROCEPHIN/NS 1 GM/50 ML 1 GM/50 ML BAG IV SCH (11:55)
[2019-06-06] MEDS: ZITHROMAX 500 MG in NACL 0.9% 250ML 250 ML IV SCH (11:55)
[2019-06-06] MEDS: NACL 0.45% 1000 ML 1,000 ML IV SCH (12:39)
[2019-06-06] MEDS ORDERED: NACL 0.9% 500 ML 500 ML IV NR (14:30)
--- NOTE | 2019-06-06 14:43 | Progress Note ---
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 Opioid dependence, chronic pain syndrome fups at pain clinic at [facility] -optimize pain meds -preventative health counseling done for 17 minutes -tobacco abuse, counseling done for 10 minutes aocd sp 2 units, improved, tsh wnl amenorrhea fup LH and FSH, dresser tender consult DVT ppx lovenox History Interval history: no fever, no cp, no sob, no n/v/d pain in LUE and LLE is controlled on pain meds Hospitalist Physical - Physical exam Narrative exam: General appearance: Present: severe distress, cachectic, disheveled - EENT Eyes: Present: PERRL ENT: hearing intact, clear oral mucosa - Neck Neck: Present: supple, normal ROM - Respiratory Respiratory effort: normal Respiratory: bilateral: CTA - Cardiovascular Heart Sounds: Present: S1 & S2. Absent: rub, click - Extremities Extremities: pulses symmetrical, No edema Extremity abnormal: other (tenderness and decreased rom of L shoulder and Left hip) Peripheral Pulses: within normal limits - Abdominal General gastrointestinal: Present: soft, non-tender, non-distended, normal bowel sounds Female genitourinary: Present: normal - Integumentary Integumentary: Present: clear, warm, dry - Musculoskeletal Musculoskeletal: gait normal, strength equal bilaterally - Psychiatric Psychiatric: appropriate mood/affect, intact judgment & insight - Neurologic Neurologic: CNII-XII intact, moves all extremities - Constitutional Vitals: Temp Pulse Resp BP Pulse Ox 98.4 F 65 18 103/51 96 06/06/19 04:26 06/06/19 04:26 06/06/19 04:26 06/06/19 04:26 06/06/19 04:26 Results - Labs CBC & Chem 7: 06/07/19 05:57 06/07/19 05:57 Labs: Laboratory Last Values WBC 3.9 K/mm3 (4.5-11.0) L 06/06/19 04:18 RBC 2.88 M/mm3 (3.65-5.03) L 06/06/19 04:18 Hgb 7.6 gm/dl (10.1-14.3) L 06/06/19 04:18 Hct 24.8 % (30.3-42.9) L 06/06/19 04:18 MCV 86 fl (79-97) 06/06/19 04:18 MCH 26 pg (28-32) L 06/06/19 04:18 MCHC 31 % (30-34) 06/06/19 04:18 RDW 21.8 % (13.2-15.2) H 06/06/19 04:18 Plt Count 142 K/mm3 (140-440) 06/06/19 04:18 Lymph % (Auto) 27.3 % (13.4-35.0) 06/06/19 04:18 [place] % (Auto) 8.9 % (0.0-7.3) H 06/06/19 04:18 Eos % (Auto) 0.9 % (0.0-4.3) 06/06/19 04:18 Baso % (Auto) 0.5 % (0.0-1.8) 06/06/19 04:18 Lymph # 1.1 K/mm3 (1.2-5.4) L 06/06/19 04:18 [place] # 0.3 K/mm3 (0.0-0.8) 06/06/19 04:18 Eos # 0.0 K/mm3 (0.0-0.4) 06/06/19 04:18 Baso # 0.0 K/mm3 (0.0-0.1) 06/06/19 04:18 Seg Neutrophils % 62.4 % (40.0-70.0) 06/06/19 04:18 Seg Neutrophils # 2.4 K/mm3 (1.8-7.7) 06/06/19 04:18 PT 18.0 Sec. (12.2-14.9) H 06/05/19 00:24 INR 1.53 (0.87-1.13) H 06/05/19 00:24 APTT 35.5 Sec. (24.2-36.6) 06/05/19 00:24 Sodium 136 mmol/L (137-145) L 06/06/19 04:18 Potassium 4.7 mmol/L (3.6-5.0) D 06/06/19 04:18 Chloride 105.6 mmol/L (98-107) 06/06/19 04:18 Carbon Dioxide 22 mmol/L (22-30) 06/06/19 04:18 13 mmol/L 06/06/19 04:18 BUN 12 mg/dL (7-17) 06/06/19 04:18 0.6 mg/dL (0.7-1.2) L 06/06/19 04:18 Estimated GFR > 60 ml/min 06/06/19 04:18 20 % 06/06/19 04:18 Glucose 478 mg/dL (65-100) H 06/06/19 04:18 POC Glucose 284 (70-105) H 06/06/19 12:40 10.9 % (4-6) H 06/05/19 00:26 Lactic Acid 2.60 mmol/L (0.7-2.0) H* 06/05/19 12:32 Calcium 7.4 mg/dL (8.4-10.2) L 06/06/19 04:18 Magnesium 1.70 mg/dL (1.7-2.3) 06/05/19 00:24 0.20 mg/dL (0.1-1.2) 06/05/19 00:24 AST 11 units/L (5-40) 06/05/19 00:24 ALT 14 units/L (7-56) 06/05/19 00:24 158 units/L (35-129) H 06/05/19 00:24 30 units/L (30-135) 06/05/19 00:24 4.7 g/dL (6.3-8.2) L 06/05/19 00:24 2.3 g/dL (3.9-5) L 06/05/19 00:24 1.0 % 06/05/19 00:24 TSH 3.140 mlU/mL (0.270-4.200) 06/05/19 00:24 HCG, Quant 1.37 mIU/mL (0-4) 06/05/19 00:24 Yellow (Yellow) 06/04/19 Unknown Clear (Clear) 06/04/19 Unknown 7.0 (5.0-7.0) 06/04/19 Unknown Ur Specific [place] 1.012 (1.003-1.030) 06/04/19 Unknown 30 mg/dl mg/dL (Negative) 06/04/19 Unknown Trace mg/dL (Negative) 06/04/19 Unknown Negative mg/dL (Negative) 06/04/19 Unknown Negative (Negative) 06/04/19 Unknown Negative (Negative) 06/04/19 Unknown Ur Reducing Substances Not Reportable 06/04/19 Unknown Negative (Negative) 06/04/19 Unknown Not Reportable 06/04/19 Unknown 0.0 mg/dL (<2.0) 06/04/19 Unknown Ur Leukocyte Esterase Negative (Negative) 06/04/19 Unknown 1.0 /HPF (0.0-6.0) 06/04/19 Unknown 1.0 /HPF (0.0-6.0) 06/04/19 Unknown Few /HPF 06/04/19 Unknown Salicylates 0.3 mg/dL (2.8-20.0) L 06/05/19 00:24 Acetaminophen 5.0 ug/mL (10.0-30.0) L 06/05/19 00:24 Plasma/Serum Alcohol 0.01 % (0-0.07) 06/05/19 00:24 Active Medications - Current Medications Current Medications: Generic Name Dose Route Start Last Admin Trade Name Freq PRN Reason Stop Dose Admin Acetaminophen 650 mg 06/05/19 08:30 Tylenol PO Q4H PRN Pain MILD(1-3)/Fever >100.5/ROQUE Alprazolam 2 mg 06/05/19 22:00 06/06/19 11:48 Xanax PO 2 mg BID JERMAN Administration Buspirone HCl 7.5 mg 06/05/19 22:00 06/06/19 11:49 Buspar PO 7.5 mg BID JERMAN Administration Dextrose 50 gm 06/04/19 23:21 06/05/19 01:53 D50w (25gm) Vial IV 50 gm PRN PRN Administration Hypoglycemia Diphenhydramine HCl 25 mg 06/05/19 16:37 06/06/19 11:24 Benadryl IV 25 mg Q6H PRN Administration Itching Enoxaparin Sodium 40 mg 06/05/19 22:00 06/05/19 21:31 Lovenox SUB-Q 40 mg QDAY@2200 JERMAN Administration Gabapentin 300 mg 06/05/19 10:00 06/06/19 11:49 Neurontin PO 300 mg BID JERMAN Administration Hydromorphone HCl 1 mg 06/05/19 16:35 Dilaudid IV Q3H PRN Pain , Severe (7-10) Hydromorphone HCl 2 mg 06/05/19 16:35 06/06/19 08:49 Dilaudid IV 2 mg Q4H PRN Administration Pain , Severe (7-10) Sodium Chloride 1,000 mls @ 42 mls/hr 06/05/19 09:00 06/06/19 12:39 Nacl 0.45% 1000 Ml IV 42 mls/hr DIRECT JERMAN Administration Ceftriaxone Sodium 1 gm in 50 mls @ 100 mls/hr 06/05/19 11:00 06/06/19 11:55 Rocephin/Ns 1 Gm/50 Ml IV 100 mls/hr Q24HR JERMAN Administration Protocol Azithromycin 500 mg/ Sodium 250 mls @ 250 mls/hr 06/06/19 10:00 06/06/19 11:55 Chloride IV 250 mls/hr Q24HR JERMAN Administration Protocol Sodium Chloride 500 mls @ 0 mls/hr 06/06/19 14:30 Nacl 0.9% 500 Ml IV 06/06/19 21:00 ONCE NR As Directed Insulin Glargine 10 units 06/05/19 22:00 06/05/19 21:30 Lantus SUB-Q 10 units QHS JERMAN Administration Insulin Human Lispro 0 unit 06/05/19 11:30 06/06/19 12:38 Humalog SUB-Q 3 unit ACHS JERMAN Administration Protocol Ketorolac Tromethamine 15 mg 06/05/19 13:44 Toradol IV 06/10/19 13:43 Q6H PRN Pain, Mild (1-3) Ondansetron HCl 4 mg 06/05/19 08:30 Zofran IV Q8H PRN Nausea And Vomiting Oxycodone HCl 10 mg 06/05/19 16:39 Roxicodone PO Q4H PRN Pain, Moderate (4-6) Oxycodone/Acetaminophen 1 tab 06/05/19 08:30 Percocet 5/325 PO Q6H PRN Pain, Moderate (4-6) Sodium Chloride 10 ml 06/05/19 10:00 06/06/19 11:50 Sodium Chloride Flush Syringe 10 Ml IV 10 ml BID JERMAN Administration Sodium Chloride 10 ml 06/05/19 08:30 06/06/19 04:37 Sodium Chloride Flush Syringe 10 Ml IV 10 ml PRN PRN Administration LINE FLUSH Venlafaxine HCl 75 mg 06/05/19 11:00 06/06/19 11:48 Effexor Xr PO 75 mg QDAY JERMAN Administration Nutrition/Malnutrition Assess - Dietary Evaluation Nutrition/Malnutrition Findings: Nutrition Notes Start: 06/05/19 13:42 Freq: Status: Active Protocol: Document 06/05/19 13:43 LP (Rec: 06/05/19 13:44 LP [id number]) Nutrition Notes Need for Assessment generated from: MD Order Initial or Follow up Brief Note Current Diagnosis Diabetes Other Pertinent Diagnosis pancreatitis and hx gastric bypass Subjective/Other Information Consult for diet education. Pt sleeping at time of visit. Nutrition Intervention Follow-Up By: 06/08/19 Additional Comments Follow for diet education needs
[2019-06-06] MEDS ORDERED: LANTUS SUB-Q SCH (14:51)
[2019-06-06] MEDS ORDERED: HumaLOG SUB-Q SCH (16:30)
[2019-06-06] MEDS ORDERED: D50W (25GM) Syringe IV ONE (20:45)
[2019-06-06] MEDS: HumuLIN R SUB-Q SCH (21:41)
[2019-06-06] MEDS: LOVENOX SUB-Q SCH (22:12)
[2019-06-07] MEDS: DILAUDID IV PRN ×5 (04:08→23:25)
[2019-06-07 06:53] LABS: Basophils % (Auto) 0.2 % (0.0-1.8); Eosinophils % (Auto) 0.6 % (0.0-4.3); Hematocrit 35.6 % (30.3-42.9); Hemoglobin 11.1 gm/dl (10.1-14.3); Lymphocytes # (Auto) 1.1 K/mm3 (1.2-5.4); Lymphocytes % (Auto) 29.8 % (13.4-35.0); Mean Corpuscular HGB Conc 31 % (30-34); Mean Corpuscular Volume 88 fl (79-97); Monocytes # (Auto) 0.4 K/mm3 (0.0-0.8); Monocytes % (Auto) 9.5 % (0.0-7.3); Platelet Count 151 K/mm3 (140-440); Red Blood Count 4.06 M/mm3 (3.65-5.03); Red Cell Distribution Width 19.4 % (13.2-15.2)
[2019-06-07 07:14] LABS: BUN/Creatinine Ratio 18; Blood Urea Nitrogen 9 mg/dL (7-17); Calcium 8.2 mg/dL (8.4-10.2); Hemolysis Index 15
[2019-06-07] MEDS: ZITHROMAX 500 MG in NACL 0.9% 250ML 250 ML IV SCH (09:16)
[2019-06-07] MEDS: HumaLOG SUB-Q SCH ×3 (09:26→16:30)
--- NOTE | 2019-06-07 11:56 | Anesthesia Day of Surgery ---
Anesthesia Day of Surgery - Day of Surgery Patient Examined: Yes Patient H&P Reviewed: Yes Patient is NPO: Yes
--- NOTE | 2019-06-07 11:56 | Anesthesia Consultation ---
Anesthesia Consult and Med Hx - Airway Anesthetic Teeth Evaluation: Poor ROM Head & Neck: Adequate Mental/Hyoid Distance: Adequate Mallampati Class: Class II Intubation Access Assessment: Good - Pulmonary Exam CTA: Yes - Cardiac Exam Cardiac Exam: RRR - Pre-Operative Health Status ASA Pre-Surgery Classification: ASA3 Proposed Anesthetic Plan: General - Endocrine Hx Insulin Dependent Diabetes: Yes - Additional Comments Anesthesia Medical History Comments: Pt with HTN and hx of DVT on Xarelto for GA
[2019-06-07] MEDS ORDERED: HumuLIN R IV ONE (12:10)
[2019-06-07] MEDS ORDERED: DILAUDID ONE (13:07)
[2019-06-07] MEDS ORDERED: XYLOCAINE MPF 2% ONE (13:08)
[2019-06-07] MEDS ORDERED: DIPRIVAN 10 MG/ML IV ONE (13:08)
[2019-06-07] MEDS ORDERED: TORADOL ONE (13:09)
[2019-06-07] MEDS ORDERED: NACL 0.9% 0 ML ONE ×2 (13:09)
[2019-06-07] MEDS ORDERED: MARCAINE 0.5% INFILTRATI ONE ×2 (13:09)
[2019-06-07] MEDS ORDERED: NACL 0.9% 100 ML ONE (13:17)
[2019-06-07] MEDS ORDERED: MORPHINE ONE (13:38)
[2019-06-07] MEDS ORDERED: .VANCOMYCIN VIAL ONE (14:09)
[2019-06-07] MEDS ORDERED: NACL 0.9% 250ML 250 ML ONE (14:10)
[2019-06-07] MEDS ORDERED: MORPHINE IV PRN (15:53)
[2019-06-07] MEDS ORDERED: SODIUM CHLORIDE FLUSH SYRINGE 10 ML IV NR (16:00)
--- NOTE | 2019-06-07 16:27 | Procedure Note ---
Date of procedure: 06/07/19 Pre-op diagnosis: closed fractures left proximal humerus and left intertrochanteric hip Post-op diagnosis: same Procedure: Closed reduction and insertion of intramedullary nails left humerus and left hip and femur Procedure The patient was brought to the OR on hospital bed following induction and intubation by anesthesia patient was placed onto the OR table in a supine position Patient was positioned into the beachchair position and the left arm and hip areas were prepped simultaneously this area was also these areas also draped in a routine sterile fashion. A timeout procedure was done to identify the patient and the correct operative sites. The left humerus was approached first using a lateral incision over the greater tuberosity this incision was taken down sharply through skin and subcutaneous the deltoid fascia and rotator cuff tendons were incised which brought us down to the proximal portion of the humerus using a all and C-arm visualization the entry point was identified following this a flexible guidewire was then inserted across the fracture site and down into the distal humerus again C-arm fluoroscopy was used to visualize passage following this the nail was measured a 300 x 9 mm barber was selected this was inserted in an antegrade fashion again under C-arm visualization The proximal locking screws were inserted and measured 40 mm and 36 mm next the C- arm was taken down towards the elbow and a distal interlocking screw was used again a stab wound was made over the entry point and the distal femur was drilled a 34 mm length screw was used and gave a good tight fit following this the wounds were then copiously irrigated and closed in a standard routine fashion. Attention was then turned to the left hip, an incision was made proximal and slightly posterior to the greater trochanter this was then taken down sharply to skin and subcutaneous using digital palpation of the greater trochanter was then isolated a again a large awl was used to create entry entry hole into the femoral canal using C-arm following this the guidepin was inserted and overreamed this is followed by insertion of the flexible guidewire was placed from the greater trochanter down to the distal aspect of the medullary canal again and C-arm fluoroscopy was used to visualize both sites following this the proximal femur was then reamed to a 12 mm diameter this was followed by insertion of a 380 x 11 mm intramedullary barber after the war barber was advanced down the canal into the distal femur the spiral blade assembly jig was applied to the shear grinder operator helper and a stab wound was made along the proximal lateral border of the femur. A 95 mm spiral blade was inserted again the C-arm fluoroscopy was used to make sure the blade was in the center inferior center portion of the femoral head and neck. Holes were copiously irrigated and were closed in a standard routine fashion the patient tolerated the procedure there were no complications she was sent to postanesthesia recovery in stable condition Anesthesia: GETA Surgeon: ANKUSH POTTS Golf Cart Attendant: NAKUL RUIZ Estimated blood loss: 50-100ml Pathology: none Condition: stable Disposition: PACU
[2019-06-07] MEDS ORDERED: D50W (25GM) Vial IV ONE (17:00)
[2019-06-07] MEDS: D50W (25GM) Vial IV PRN (17:12)
[2019-06-07] MEDS: SUBLIMAZE IV PRN ×3 (17:20→17:50)
[2019-06-07] MEDS ORDERED: D50W (25GM) Syringe IV ONE (17:30)
[2019-06-07] MEDS: BENADRYL IV PRN (17:38)
--- NOTE | 2019-06-07 18:43 | XRay Report ---
INTRAOPERATIVE FLUOROSCOPY: LEFT HIP INDICATION / CLINICAL INFORMATION: LT HIP FRACTURE/ IM TFN. TECHNIQUE: Intraoperative spot images were obtained during the procedure. FINDINGS: Open reduction and internal fixation was performed on the left proximal femoral fracture. Fluoroscopy Time: 1 minute and 35 seconds. Fluoroscopy Images: 1. Signer Name: Sinan Becerra MD Signed: 06/07/2019 6:38 PM Workstation Name: [id number]
[2019-06-07] MEDS: XANAX PO SCH ×2 (18:45→21:55)
--- NOTE | 2019-06-07 18:49 | XRay Report ---
INTRAOPERATIVE FLUOROSCOPY: LEFT SHOULDER INDICATION / CLINICAL INFORMATION: LT HUMERAL NECK FRACTURE/ IM NAILING. TECHNIQUE: Intraoperative spot images were obtained during the procedure. FINDINGS: Proximal left humeral fracture underwent open reduction internal fixation. Fluoroscopy Time: 1 minute and 22 seconds. Fluoroscopy Images: 1. Signer Name: Sinan Becerra MD Signed: 06/07/2019 6:45 PM Workstation Name: [id number] [id number]
[2019-06-07] MEDS: NEURONTIN PO SCH ×2 (20:26→21:55)
[2019-06-07] MEDS: BUSPAR PO SCH ×2 (20:26→21:55)
[2019-06-07] MEDS: EFFEXOR XR PO SCH (20:26)
[2019-06-07] MEDS: SODIUM CHLORIDE FLUSH SYRINGE 10 ML IV SCH ×2 (20:27→22:16)
[2019-06-07] MEDS: ROCEPHIN/NS 1 GM/50 ML 1 GM/50 ML BAG IV SCH (20:27)
[2019-06-07] MEDS: LOVENOX SUB-Q SCH (21:56)
--- NOTE | 2019-06-07 22:06 | Progress Note ---
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 Opioid dependence, chronic pain syndrome fups at pain clinic at [facility] -optimize pain meds -preventative health counseling done for 17 minutes -tobacco abuse, counseling done for 10 minutes aocd sp 2 units, improved, tsh wnl amenorrhea fup LH and FSH, imaging account manager consult DVT ppx lovenox History Interval history: no fever, no cp, no sob, no n/v/d pain in LUE and LLE is controlled on pain meds Hospitalist Physical - Physical exam Narrative exam: General appearance: Present: severe distress, cachectic, disheveled - EENT Eyes: Present: PERRL ENT: hearing intact, clear oral mucosa - Neck Neck: Present: supple, normal ROM - Respiratory Respiratory effort: normal Respiratory: bilateral: CTA - Cardiovascular Heart Sounds: Present: S1 & S2. Absent: rub, click - Extremities Extremities: pulses symmetrical, No edema Extremity abnormal: other (tenderness and decreased rom of L shoulder and Left hip) Peripheral Pulses: within normal limits - Abdominal General gastrointestinal: Present: soft, non-tender, non-distended, normal bowel sounds Female genitourinary: Present: normal - Integumentary Integumentary: Present: clear, warm, dry - Musculoskeletal Musculoskeletal: gait normal, strength equal bilaterally - Psychiatric Psychiatric: appropriate mood/affect, intact judgment & insight - Neurologic Neurologic: CNII-XII intact, moves all extremities - Constitutional Vitals: Temp Pulse Resp BP Pulse Ox 97.9 F 90 18 127/75 100 06/07/19 20:13 06/07/19 20:13 06/07/19 20:13 06/07/19 20:13 06/07/19 20:13 General appearance: Present: severe distress, cachectic, disheveled Results - Labs CBC & Chem 7: 06/07/19 05:57 06/07/19 05:57 Labs: Laboratory Last Values WBC 3.7 K/mm3 (4.5-11.0) L 06/07/19 05:57 RBC 4.06 M/mm3 (3.65-5.03) 06/07/19 05:57 Hgb 11.1 gm/dl (10.1-14.3) D 06/07/19 05:57 Hct 35.6 % (30.3-42.9) D 06/07/19 05:57 MCV 88 fl (79-97) 06/07/19 05:57 MCH 27 pg (28-32) L 06/07/19 05:57 MCHC 31 % (30-34) 06/07/19 05:57 RDW 19.4 % (13.2-15.2) H 06/07/19 05:57 Plt Count 151 K/mm3 (140-440) 06/07/19 05:57 Lymph % (Auto) 29.8 % (13.4-35.0) 06/07/19 05:57 [place] % (Auto) 9.5 % (0.0-7.3) H 06/07/19 05:57 Eos % (Auto) 0.6 % (0.0-4.3) 06/07/19 05:57 Baso % (Auto) 0.2 % (0.0-1.8) 06/07/19 05:57 Lymph # 1.1 K/mm3 (1.2-5.4) L 06/07/19 05:57 [place] # 0.4 K/mm3 (0.0-0.8) 06/07/19 05:57 Eos # 0.0 K/mm3 (0.0-0.4) 06/07/19 05:57 Baso # 0.0 K/mm3 (0.0-0.1) 06/07/19 05:57 Seg Neutrophils % 59.9 % (40.0-70.0) 06/07/19 05:57 Seg Neutrophils # 2.2 K/mm3 (1.8-7.7) 06/07/19 05:57 PT 18.0 Sec. (12.2-14.9) H 06/05/19 00:24 INR 1.53 (0.87-1.13) H 06/05/19 00:24 APTT 35.5 Sec. (24.2-36.6) 06/05/19 00:24 Sodium 140 mmol/L (137-145) 06/07/19 05:57 Potassium 4.3 mmol/L (3.6-5.0) 06/07/19 05:57 Chloride 104.3 mmol/L (98-107) 06/07/19 05:57 Carbon Dioxide 25 mmol/L (22-30) 06/07/19 05:57 15 mmol/L 06/07/19 05:57 BUN 9 mg/dL (7-17) 06/07/19 05:57 0.5 mg/dL (0.7-1.2) L 06/07/19 05:57 Estimated GFR > 60 ml/min 06/07/19 05:57 18 % 06/07/19 05:57 Glucose 287 mg/dL (65-100) H 06/07/19 05:57 POC Glucose 288 (70-105) H 06/07/19 21:49 10.9 % (4-6) H 06/05/19 00:26 Lactic Acid 2.60 mmol/L (0.7-2.0) H* 06/05/19 12:32 Calcium 8.2 mg/dL (8.4-10.2) L 06/07/19 05:57 Magnesium 1.70 mg/dL (1.7-2.3) 06/05/19 00:24 0.20 mg/dL (0.1-1.2) 06/05/19 00:24 AST 11 units/L (5-40) 06/05/19 00:24 ALT 14 units/L (7-56) 06/05/19 00:24 158 units/L (35-129) H 06/05/19 00:24 30 units/L (30-135) 06/05/19 00:24 4.7 g/dL (6.3-8.2) L 06/05/19 00:24 2.3 g/dL (3.9-5) L 06/05/19 00:24 1.0 % 06/05/19 00:24 TSH 2.490 mlU/mL (0.270-4.200) 06/06/19 17:13 HCG, Quant 1.37 mIU/mL (0-4) 06/05/19 00:24 Yellow (Yellow) 06/04/19 Unknown Clear (Clear) 06/04/19 Unknown 7.0 (5.0-7.0) 06/04/19 Unknown Ur Specific [place] 1.012 (1.003-1.030) 06/04/19 Unknown 30 mg/dl mg/dL (Negative) 06/04/19 Unknown Trace mg/dL (Negative) 06/04/19 Unknown Negative mg/dL (Negative) 06/04/19 Unknown Negative (Negative) 06/04/19 Unknown Negative (Negative) 06/04/19 Unknown Ur Reducing Substances Not Reportable 06/04/19 Unknown Negative (Negative) 06/04/19 Unknown Not Reportable 06/04/19 Unknown 0.0 mg/dL (<2.0) 06/04/19 Unknown Ur Leukocyte Esterase Negative (Negative) 06/04/19 Unknown 1.0 /HPF (0.0-6.0) 06/04/19 Unknown 1.0 /HPF (0.0-6.0) 06/04/19 Unknown Few /HPF 06/04/19 Unknown Salicylates 0.3 mg/dL (2.8-20.0) L 06/05/19 00:24 Acetaminophen 5.0 ug/mL (10.0-30.0) L 06/05/19 00:24 Plasma/Serum Alcohol 0.01 % (0-0.07) 06/05/19 00:24 Blood Type O POSITIVE 06/06/19 14:23 Antibody Screen Negative 06/06/19 14:23 Crossmatch See Detail 06/06/19 14:23 Active Medications - Current Medications Current Medications: Generic Name Dose Route Start Last Admin Trade Name Freq PRN Reason Stop Dose Admin Acetaminophen 650 mg 06/05/19 08:30 Tylenol PO Q4H PRN Pain MILD(1-3)/Fever >100.5/ROQUE Acetaminophen/Hydrocodone [place] 1 each 06/07/19 15:53 [place] 5/325 PO Q6H PRN Pain, Moderate (4-6) Alprazolam 2 mg 06/05/19 22:00 06/07/19 21:55 Xanax PO 2 mg BID JERMAN Administration Buspirone HCl 7.5 mg 06/05/19 22:00 06/07/19 21:55 Buspar PO 7.5 mg BID JERMAN Administration Dextrose 50 gm 06/04/19 23:21 06/07/19 17:12 D50w (25gm) Vial IV 6.25 gm PRN PRN Administration Hypoglycemia Diphenhydramine HCl 25 mg 06/05/19 16:37 06/07/19 17:38 Benadryl IV 25 mg Q6H PRN Administration Itching Enoxaparin Sodium 40 mg 06/05/19 22:00 06/07/19 21:56 Lovenox SUB-Q 40 mg QDAY@2200 JERMAN Administration Fentanyl 50 mcg 06/07/19 17:08 06/07/19 17:50 Sublimaze IV 06/07/19 23:59 50 mcg Q5MIN PRN Administration Pain , Severe (7-10) Gabapentin 300 mg 06/05/19 10:00 06/07/19 21:55 Neurontin PO 300 mg BID JERMAN Administration Hydromorphone HCl 1 mg 06/05/19 16:35 06/07/19 11:12 Dilaudid IV 1 mg Q3H PRN Administration Pain , Severe (7-10) Hydromorphone HCl 2 mg 06/05/19 16:35 06/07/19 20:03 Dilaudid IV 2 mg Q4H PRN Administration Pain , Severe (7-10) Sodium Chloride 1,000 mls @ 42 mls/hr 06/05/19 09:00 06/06/19 12:39 Nacl 0.45% 1000 Ml IV 42 mls/hr DIRECT JERMAN Administration Ceftriaxone Sodium 1 gm in 50 mls @ 100 mls/hr 06/05/19 11:00 06/07/19 20:31 Rocephin/Ns 1 Gm/50 Ml IV Infused Q24HR JERMAN Infusion Protocol Azithromycin 500 mg/ Sodium 250 mls @ 250 mls/hr 06/06/19 10:00 06/07/19 09:16 Chloride IV 250 mls/hr Q24HR JERMAN Administration Protocol Insulin Human Lispro 0 unit 06/06/19 16:30 06/07/19 16:30 Humalog SUB-Q Not Given AC [facility] Protocol Insulin Human Regular 0 units 06/06/19 22:00 06/06/19 21:41 [facility] Ket[facility]olac Tromethamine 15 mg 06/05/19 13:44 06/07/19 08:40 Toradol IV 06/10/19 13:43 15 mg Q6H PRN Administration Pain, Mild (1-3) Morphine Sulfate 4 mg 06/07/19 15:53 Morphine IV Q4H PRN Pain , Severe (7-10) Ondansetron HCl 4 mg 06/05/19 08:30 Zofran IV Q8H PRN Nausea And Vomiting Oxycodone HCl 10 mg 06/05/19 16:39 Roxicodone PO Q4H PRN Pain, Moderate (4-6) Oxycodone/Acetaminophen 1 tab 06/05/19 08:30 Percocet 5/325 PO Q6H PRN Pain, Moderate (4-6) Sodium Chloride 10 ml 06/05/19 10:00 06/07/19 20:27 Sodium Chloride Flush Syringe 10 Ml IV Not Given BID JERMAN Sodium Chloride 10 ml 06/05/19 08:30 06/06/19 04:37 Sodium Chloride Flush Syringe 10 Ml IV 10 ml PRN PRN Administration LINE FLUSH Sodium Chloride 10 ml 06/07/19 16:00 Sodium Chloride Flush Syringe 10 Ml IV 06/10/19 15:59 PRN NR Venlafaxine HCl 75 mg 06/05/19 11:00 06/07/19 20:26 Effexor Xr PO Not Given QDAY [facility] Nutrition/Malnutrition Assess - Dietary Evaluation Nutrition/Malnutrition Findings: Nutrition Notes Start: 06/05/19 13:42 Freq: Status: Active Protocol: Document 06/05/19 13:43 LP (Rec: 06/05/19 13:44 LP [id number]) Nutrition Notes Need for Assessment generated from: MD Order Initial or Follow up Brief Note Current Diagnosis Diabetes Other Pertinent Diagnosis pancreatitis and hx gastric bypass Subjective/Other Information Consult for diet education. Pt sleeping at time of visit. Nutrition Intervention Follow-Up By: 06/08/19 Additional Comments Follow for diet education needs
[2019-06-07] MEDS: HumuLIN R SUB-Q SCH (23:20)
[2019-06-08] MEDS: BENADRYL IV PRN (00:02)
[2019-06-08] MEDS: DILAUDID IV PRN ×4 (04:06→16:17)
[2019-06-08 05:38] LABS: Basophils % (Auto) 0.3 % (0.0-1.8); Eosinophils % (Auto) 0.8 % (0.0-4.3); Hematocrit 24.5 % (30.3-42.9); Hemoglobin 7.8 gm/dl (10.1-14.3); Lymphocytes # (Auto) 0.5 K/mm3 (1.2-5.4); Lymphocytes % (Auto) 18.5 % (13.4-35.0); Mean Corpuscular HGB Conc 32 % (30-34); Mean Corpuscular Volume 86 fl (79-97); Monocytes # (Auto) 0.3 K/mm3 (0.0-0.8); Monocytes % (Auto) 9.9 % (0.0-7.3); Platelet Count 139 K/mm3 (140-440); Red Blood Count 2.84 M/mm3 (3.65-5.03); Red Cell Distribution Width 19.3 % (13.2-15.2)
[2019-06-08] MEDS: NORCO 5/325 PO PRN ×2 (05:40→21:22)
[2019-06-08] MEDS: HumaLOG SUB-Q SCH ×3 (09:17→16:25)
[2019-06-08] MEDS: BUSPAR PO SCH ×2 (09:49→21:21)
[2019-06-08] MEDS: ROCEPHIN/NS 1 GM/50 ML 1 GM/50 ML BAG IV SCH (09:49)
[2019-06-08] MEDS: XANAX PO SCH ×2 (09:50→21:22)
[2019-06-08] MEDS: EFFEXOR XR PO SCH (09:50)
[2019-06-08] MEDS: NEURONTIN PO SCH ×2 (09:51→21:22)
[2019-06-08] MEDS: NACL 0.45% 1000 ML 1,000 ML IV SCH (09:52)
[2019-06-08] MEDS: SODIUM CHLORIDE FLUSH SYRINGE 10 ML IV SCH ×2 (10:04→21:22)
[2019-06-08] MEDS: ZITHROMAX 500 MG in NACL 0.9% 250ML 250 ML IV SCH (11:00)
--- NOTE | 2019-06-08 12:47 | Progress Note ---
Assessment and Plan left intertrochanteric hip fracture Subjective Date of service: 06/08/19 Interval history: Complaining of pain right arm and leg otherwise okay Objective Vital signs: Vital Signs - 12hr 06/08/19 06/08/19 06/08/19 03:03 07:16 07:35 Temperature 99.4 F Pulse Rate 98 H Respiratory 18 Rate Blood Pressure 102/64 O2 Sat by Pulse 98 98 99 Oximetry 06/08/19 12:07 Temperature Pulse Rate Respiratory 18 Rate Blood Pressure O2 Sat by Pulse Oximetry Incision: swollen, clean and dry Weight bearing status: as tolerated - Labs CBC & BMP: 06/09/19 08:09 06/07/19 05:57 Labs: Abnormal lab results 06/07/19 06/07/19 06/07/19 Range/Units 17:02 18:14 21:49 WBC (4.5-11.0) K/mm3 RBC (3.65-5.03) M/mm3 Hgb (10.1-14.3) gm/dl Hct (30.3-42.9) % RDW (13.2-15.2) % Plt Count (140-440) K/mm3 [place] % (Auto) (0.0-7.3) % Lymph # (1.2-5.4) K/mm3 Seg Neutrophils % (40.0-70.0) % POC Glucose 67 L 112 H 288 H (70-105) 06/08/19 06/08/19 Range/Units 04:53 07:24 WBC 3.0 L (4.5-11.0) K/mm3 RBC 2.84 L (3.65-5.03) M/mm3 Hgb 7.8 L D (10.1-14.3) gm/dl Hct 24.5 L D (30.3-42.9) % RDW 19.3 H (13.2-15.2) % Plt Count 139 L (140-440) K/mm3 [place] % (Auto) 9.9 H (0.0-7.3) % Lymph # 0.5 L (1.2-5.4) K/mm3 Seg Neutrophils % 70.5 H (40.0-70.0) % POC Glucose 240 H (70-105)
--- NOTE | 2019-06-08 13:01 | Progress Note ---
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 Opioid dependence, chronic pain syndrome fups at pain clinic at [place] -optimize pain meds -preventative health counseling done for 17 minutes -tobacco abuse, counseling done for 10 minutes aocd sp 2 units, improved, tsh wnl amenorrhea fup LH and FSH, 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 Absent: rub, click - Extremities Extremities: pulses symmetrical, No edema Extremity abnormal: other (tenderness and decreased rom of L shoulder and Left hip) Peripheral Pulses: within normal limits - Abdominal General gastrointestinal: Present: soft, non-tender, non-distended, normal bowel sounds Female genitourinary: Present: normal - Integumentary Integumentary: Present: clear, warm, dry - Musculoskeletal Musculoskeletal: gait normal, strength equal bilaterally - Psychiatric Psychiatric: appropriate mood/affect, intact judgment & insight - Neurologic Neurologic: CNII-XII intact, moves all extremities - Constitutional Vitals: Temp Pulse Resp BP Pulse Ox 99.4 F 98 H 18 102/64 99 06/08/19 07:16 06/08/19 07:16 06/08/19 12:07 06/08/19 07:16 06/08/19 07:35 General appearance: Present: mild distress, cachectic, disheveled Results - Labs CBC & Chem 7: 06/09/19 08:09 06/07/19 05:57 Labs: Laboratory Last Values WBC 3.0 K/mm3 (4.5-11.0) L 06/08/19 04:53 RBC 2.84 M/mm3 (3.65-5.03) L 06/08/19 04:53 Hgb 7.8 gm/dl (10.1-14.3) L D 06/08/19 04:53 Hct 24.5 % (30.3-42.9) L D 06/08/19 04:53 MCV 86 fl (79-97) 06/08/19 04:53 MCH 28 pg (28-32) 06/08/19 04:53 MCHC 32 % (30-34) 06/08/19 04:53 RDW 19.3 % (13.2-15.2) H 06/08/19 04:53 Plt Count 139 K/mm3 (140-440) L 06/08/19 04:53 Lymph % (Auto) 18.5 % (13.4-35.0) 06/08/19 04:53 [place] % (Auto) 9.9 % (0.0-7.3) H 06/08/19 04:53 Eos % (Auto) 0.8 % (0.0-4.3) 06/08/19 04:53 Baso % (Auto) 0.3 % (0.0-1.8) 06/08/19 04:53 Lymph # 0.5 K/mm3 (1.2-5.4) L 06/08/19 04:53 [place] # 0.3 K/mm3 (0.0-0.8) 06/08/19 04:53 Eos # 0.0 K/mm3 (0.0-0.4) 06/08/19 04:53 Baso # 0.0 K/mm3 (0.0-0.1) 06/08/19 04:53 Seg Neutrophils % 70.5 % (40.0-70.0) H 06/08/19 04:53 Seg Neutrophils # 2.1 K/mm3 (1.8-7.7) 06/08/19 04:53 PT 18.0 Sec. (12.2-14.9) H 06/05/19 00:24 INR 1.53 (0.87-1.13) H 06/05/19 00:24 APTT 35.5 Sec. (24.2-36.6) 06/05/19 00:24 Sodium 140 mmol/L (137-145) 06/07/19 05:57 Potassium 4.3 mmol/L (3.6-5.0) 06/07/19 05:57 Chloride 104.3 mmol/L (98-107) 06/07/19 05:57 Carbon Dioxide 25 mmol/L (22-30) 06/07/19 05:57 15 mmol/L 06/07/19 05:57 BUN 9 mg/dL (7-17) 06/07/19 05:57 0.5 mg/dL (0.7-1.2) L 06/07/19 05:57 Estimated GFR > 60 ml/min 06/07/19 05:57 18 % 06/07/19 05:57 Glucose 287 mg/dL (65-100) H 06/07/19 05:57 POC Glucose 101 (70-105) 06/08/19 11:55 10.9 % (4-6) H 06/05/19 00:26 Lactic Acid 2.60 mmol/L (0.7-2.0) H* 06/05/19 12:32 Calcium 8.2 mg/dL (8.4-10.2) L 06/07/19 05:57 Magnesium 1.70 mg/dL (1.7-2.3) 06/05/19 00:24 0.20 mg/dL (0.1-1.2) 06/05/19 00:24 AST 11 units/L (5-40) 06/05/19 00:24 ALT 14 units/L (7-56) 06/05/19 00:24 158 units/L (35-129) H 06/05/19 00:24 30 units/L (30-135) 06/05/19 00:24 4.7 g/dL (6.3-8.2) L 06/05/19 00:24 2.3 g/dL (3.9-5) L 06/05/19 00:24 1.0 % 06/05/19 00:24 TSH 2.490 mlU/mL (0.270-4.200) 06/06/19 17:13 HCG, Quant 1.37 mIU/mL (0-4) 06/05/19 00:24 Yellow (Yellow) 06/04/19 Unknown Clear (Clear) 06/04/19 Unknown 7.0 (5.0-7.0) 06/04/19 Unknown Ur Specific [place] 1.012 (1.003-1.030) 06/04/19 Unknown 30 mg/dl mg/dL (Negative) 06/04/19 Unknown Trace mg/dL (Negative) 06/04/19 Unknown Negative mg/dL (Negative) 06/04/19 Unknown Negative (Negative) 06/04/19 Unknown Negative (Negative) 06/04/19 Unknown Ur Reducing Substances Not Reportable 06/04/19 Unknown Negative (Negative) 06/04/19 Unknown Not Reportable 06/04/19 Unknown 0.0 mg/dL (<2.0) 06/04/19 Unknown Ur Leukocyte Esterase Negative (Negative) 06/04/19 Unknown 1.0 /HPF (0.0-6.0) 06/04/19 Unknown 1.0 /HPF (0.0-6.0) 06/04/19 Unknown Few /HPF 06/04/19 Unknown Salicylates 0.3 mg/dL (2.8-20.0) L 06/05/19 00:24 Acetaminophen 5.0 ug/mL (10.0-30.0) L 06/05/19 00:24 Plasma/Serum Alcohol 0.01 % (0-0.07) 06/05/19 00:24 Blood Type O POSITIVE 06/06/19 14:23 Antibody Screen Negative 06/06/19 14:23 Crossmatch See Detail 06/06/19 14:23 Active Medications - Current Medications Current Medications: Generic Name Dose Route Start Last Admin Trade Name Freq PRN Reason Stop Dose Admin Acetaminophen 650 mg 06/05/19 08:30 06/08/19 04:00 Tylenol PO 650 mg Q4H PRN Administration Pain MILD(1-3)/Fever >100.5/ROQUE Acetaminophen/Hydrocodone Bitart 1 each 06/07/19 15:53 06/08/19 05:40 [place] 5/325 PO 1 each Q6H PRN Administration Pain, Moderate (4-6) Alprazolam 2 mg 06/05/19 22:00 06/08/19 09:50 Xanax PO 2 mg BID JERMAN Administration Buspirone HCl 7.5 mg 06/05/19 22:00 06/08/19 09:49 Buspar PO 7.5 mg BID JERMAN Administration Dextrose 50 gm 06/04/19 23:21 06/07/19 17:12 D50w (25gm) Vial IV 6.25 gm PRN PRN Administration Hypoglycemia Diphenhydramine HCl 25 mg 06/05/19 16:37 06/08/19 00:02 Benadryl IV 25 mg Q6H PRN Administration Itching Enoxaparin Sodium 40 mg 06/05/19 22:00 06/07/19 21:56 Lovenox SUB-Q 40 mg QDAY@2200 JERMAN Administration Gabapentin 300 mg 06/05/19 10:00 06/08/19 09:51 Neurontin PO 300 mg BID JERMAN Administration Hydromorphone HCl 1 mg 06/05/19 16:35 06/08/19 04:06 Dilaudid IV 1 mg Q3H PRN Administration Pain , Severe (7-10) Hydromorphone HCl 2 mg 06/05/19 16:35 06/08/19 12:07 Dilaudid IV 2 mg Q4H PRN Administration Pain , Severe (7-10) Sodium Chloride 1,000 mls @ 42 mls/hr 06/05/19 09:00 06/08/19 09:52 Nacl 0.45% 1000 Ml IV 42 mls/hr DIRECT JERMAN Administration Ceftriaxone Sodium 1 gm in 50 mls @ 100 mls/hr 06/05/19 11:00 06/08/19 09:49 Rocephin/Ns 1 Gm/50 Ml IV 100 mls/hr Q24HR JERMAN Administration Protocol Azithromycin 500 mg/ Sodium 250 mls @ 250 mls/hr 06/06/19 10:00 06/08/19 11:00 Chloride IV 250 mls/hr Q24HR JERMAN Administration Protocol Insulin Human Lispro 0 unit 06/06/19 16:30 06/08/19 12:03 Humalog SUB-Q Not Given AC JERMAN Protocol Insulin Human Regular 0 units 06/06/19 22:00 06/07/19 23:20 Humulin R SUB-Q 4 units QHS JERMAN Administration Protocol Ketorolac Tromethamine 15 mg 06/05/19 13:44 06/07/19 08:40 Toradol IV 08/11/19 13:43 15 mg Q6H PRN Administration Pain, Mild (1-3) Morphine Sulfate 4 mg 06/07/19 15:53 Morphine IV Q4H PRN Pain , Severe (7-10) Ondansetron HCl 4 mg 06/05/19 08:30 Zofran IV Q8H PRN Nausea And Vomiting Oxycodone HCl 10 mg 06/05/19 16:39 Roxicodone PO Q4H PRN Pain, Moderate (4-6) Oxycodone/Acetaminophen 1 tab 06/05/19 08:30 Percocet 5/325 PO Q6H PRN Pain, Moderate (4-6) Sodium Chloride 10 ml 06/05/19 10:00 06/08/19 10:04 Sodium Chloride Flush Syringe 10 Ml IV 10 ml BID JERMAN Administration Sodium Chloride 10 ml 06/05/19 08:30 06/06/19 04:37 Sodium Chloride Flush Syringe 10 Ml IV 10 ml PRN PRN Administration LINE FLUSH Sodium Chloride 10 ml 06/07/19 16:00 Sodium Chloride Flush Syringe 10 Ml IV 06/10/19 15:59 PRN NR Venlafaxine HCl 75 mg 06/05/19 11:00 06/08/19 09:50 Effexor Xr PO 75 mg QDAY JERMAN Administration Nutrition/Malnutrition Assess - Dietary Evaluation Nutrition/Malnutrition Findings: Nutrition Notes Start: 06/05/19 13:42 Freq: Status: Active Protocol: Document 06/05/19 13:43 LP (Rec: 06/05/19 13:44 LP [id number]) Nutrition Notes Need for Assessment generated from: MD Order Initial or Follow up Brief Note Current Diagnosis Diabetes Other Pertinent Diagnosis pancreatitis and hx gastric bypass Subjective/Other Information Consult for diet education. Pt sleeping at time of visit. Nutrition Intervention Follow-Up By: 06/08/19 Additional Comments Follow for diet education needs
[2019-06-08] MEDS: BENADRYL PO PRN (16:17)
[2019-06-08] MEDS: LOVENOX SUB-Q SCH (21:20)
[2019-06-08] MEDS: HumuLIN R SUB-Q SCH (21:37)
[2019-06-09] MEDS: BENADRYL PO PRN (01:04)
[2019-06-09] MEDS: DILAUDID IV PRN ×5 (01:04→18:54)
[2019-06-09 08:24] LABS: Basophils % (Auto) 0.3 % (0.0-1.8); Eosinophils % (Auto) 1.2 % (0.0-4.3); Hematocrit 23.6 % (30.3-42.9); Hemoglobin 7.7 gm/dl (10.1-14.3); Lymphocytes # (Auto) 0.7 K/mm3 (1.2-5.4); Mean Corpuscular HGB Conc 32 % (30-34); Mean Corpuscular Volume 86 fl (79-97); Monocytes # (Auto) 0.4 K/mm3 (0.0-0.8); Monocytes % (Auto) 9.6 % (0.0-7.3); Platelet Count 127 K/mm3 (140-440); Red Blood Count 2.75 M/mm3 (3.65-5.03); Red Cell Distribution Width 19.4 % (13.2-15.2)
[2019-06-09] MEDS: HumaLOG SUB-Q SCH ×3 (08:49→17:01)
[2019-06-09] MEDS: NEURONTIN PO SCH ×2 (08:59→21:26)
[2019-06-09] MEDS: BUSPAR PO SCH ×2 (08:59→21:23)
[2019-06-09] MEDS: XANAX PO SCH ×2 (09:00→21:26)
[2019-06-09] MEDS: EFFEXOR XR PO SCH (09:00)
[2019-06-09] MEDS: SODIUM CHLORIDE FLUSH SYRINGE 10 ML IV SCH ×2 (09:00→21:26)
[2019-06-09] MEDS: ROCEPHIN/NS 1 GM/50 ML 1 GM/50 ML BAG IV SCH (09:00)
[2019-06-09] MEDS: ZITHROMAX 500 MG in NACL 0.9% 250ML 250 ML IV SCH (10:46)
--- NOTE | 2019-06-09 13:48 | Progress Note ---
Assessment and Plan left intertrochanteric hip fracture Subjective Date of service: 06/09/19 Interval history: Complaining of pain right arm and leg otherwise okay Objective Vital signs: Vital Signs - 12hr 06/09/19 06/09/19 06/09/19 03:44 06:46 07:15 Temperature 97.8 F 99.0 F Pulse Rate 82 65 Respiratory 18 20 18 Rate Blood Pressure 107/73 121/78 Blood Pressure [Left] O2 Sat by Pulse 99 100 Oximetry 06/09/19 06/09/19 06/09/19 07:16 07:30 11:18 Temperature 99 F 98.0 F Pulse Rate 48 L 88 Respiratory 18 18 18 Rate Blood Pressure 114/66 Blood Pressure 121/78 [Left] O2 Sat by Pulse 97 98 Oximetry 06/09/19 06/09/19 11:22 11:30 Temperature 98.0 F 98 F Pulse Rate 110 H 94 H Respiratory 28 H 18 Rate Blood Pressure 122/59 Blood Pressure 114/66 [Left] O2 Sat by Pulse 99 98 Oximetry Narrative Exam: left shoulder - incisions healing well, no drainage/redness noted, moderate swelling left hip - post op dressing intact - Labs CBC & BMP: 06/09/19 08:09 06/07/19 05:57 Labs: Abnormal lab results 06/08/19 06/08/19 06/09/19 Range/Units 16:17 21:29 07:18 WBC (4.5-11.0) K/mm3 RBC (3.65-5.03) M/mm3 Hgb (10.1-14.3) gm/dl Hct (30.3-42.9) % RDW (13.2-15.2) % Plt Count (140-440) K/mm3 [place] % (Auto) (0.0-7.3) % Lymph # (1.2-5.4) K/mm3 POC Glucose 176 H 243 H 291 H (70-105) 06/09/19 06/09/19 Range/Units 08:09 11:25 WBC 3.8 L (4.5-11.0) K/mm3 RBC 2.75 L (3.65-5.03) M/mm3 Hgb 7.7 L (10.1-14.3) gm/dl Hct 23.6 L (30.3-42.9) % RDW 19.4 H (13.2-15.2) % Plt Count 127 L (140-440) K/mm3 [place] % (Auto) 9.6 H (0.0-7.3) % Lymph # 0.7 L (1.2-5.4) K/mm3 POC Glucose 363 H (70-105)
[2019-06-09] MEDS: LOVENOX SUB-Q SCH (21:25)
[2019-06-09] MEDS: HumuLIN R SUB-Q SCH (21:34)
[2019-06-10] MEDS: LANTUS SUB-Q SCH ×2 (00:13→22:00)
[2019-06-10] MEDS: DILAUDID IV PRN ×6 (00:14→20:00)
[2019-06-10] MEDS: EFFEXOR XR PO SCH (09:20)
[2019-06-10] MEDS: BUSPAR PO SCH ×2 (09:20→22:00)
[2019-06-10] MEDS: ROCEPHIN/NS 1 GM/50 ML 1 GM/50 ML BAG IV SCH (09:20)
[2019-06-10] MEDS: NEURONTIN PO SCH ×2 (09:21→22:00)
[2019-06-10] MEDS: XANAX PO SCH ×2 (09:22→22:00)
[2019-06-10] MEDS: HumaLOG SUB-Q SCH ×3 (09:29→16:29)
[2019-06-10] MEDS: ZITHROMAX 500 MG in NACL 0.9% 250ML 250 ML IV SCH (10:16)
[2019-06-10] MEDS ORDERED: XANAX PO SCH (13:15)
[2019-06-10] MEDS: OxyCONTIN PO SCH ×2 (13:30→22:03)
--- NOTE | 2019-06-10 16:19 | Progress Note ---
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 Opioid dependence, chronic pain syndrome fups at pain clinic at [place] -optimize pain meds -preventative health counseling done for 17 minutes -tobacco abuse, counseling done for 10 minutes aocd sp 2 units, improved, tsh wnl amenorrhea fup LH and FSH, 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 Absent: rub, click - Extremities Extremities: pulses symmetrical, No edema Extremity abnormal: other (tenderness and decreased rom of L shoulder and Left hip) Peripheral Pulses: within normal limits - Abdominal General gastrointestinal: Present: soft, non-tender, non-distended, normal bowel sounds Female genitourinary: Present: normal - Integumentary Integumentary: Present: clear, warm, dry - Musculoskeletal Musculoskeletal: gait normal, strength equal bilaterally - Psychiatric Psychiatric: appropriate mood/affect, intact judgment & insight - Neurologic Neurologic: CNII-XII intact, moves all extremities - Constitutional Vitals: Temp Pulse Resp BP Pulse Ox 98.4 F 86 16 103/64 100 06/10/19 07:30 06/10/19 07:30 06/10/19 07:30 06/10/19 07:30 06/10/19 07:45 General appearance: Present: mild distress, cachectic, disheveled Results - Labs CBC & Chem 7: 06/09/19 08:09 06/07/19 05:57 Labs: Laboratory Last Values WBC 3.8 K/mm3 (4.5-11.0) L 06/09/19 08:09 RBC 2.75 M/mm3 (3.65-5.03) L 06/09/19 08:09 Hgb 7.7 gm/dl (10.1-14.3) L 06/09/19 08:09 Hct 23.6 % (30.3-42.9) L 06/09/19 08:09 MCV 86 fl (79-97) 06/09/19 08:09 MCH 28 pg (28-32) 06/09/19 08:09 MCHC 32 % (30-34) 06/09/19 08:09 RDW 19.4 % (13.2-15.2) H 06/09/19 08:09 Plt Count 127 K/mm3 (140-440) L 06/09/19 08:09 Lymph % (Auto) 19.0 % (13.4-35.0) 06/09/19 08:09 [place] % (Auto) 9.6 % (0.0-7.3) H 06/09/19 08:09 Eos % (Auto) 1.2 % (0.0-4.3) 06/09/19 08:09 Baso % (Auto) 0.3 % (0.0-1.8) 06/09/19 08:09 Lymph # 0.7 K/mm3 (1.2-5.4) L 06/09/19 08:09 [place] # 0.4 K/mm3 (0.0-0.8) 06/09/19 08:09 Eos # 0.0 K/mm3 (0.0-0.4) 06/09/19 08:09 Baso # 0.0 K/mm3 (0.0-0.1) 06/09/19 08:09 Seg Neutrophils % 69.9 % (40.0-70.0) 06/09/19 08:09 Seg Neutrophils # 2.7 K/mm3 (1.8-7.7) 06/09/19 08:09 PT 18.0 Sec. (12.2-14.9) H 06/05/19 00:24 INR 1.53 (0.87-1.13) H 06/05/19 00:24 APTT 35.5 Sec. (24.2-36.6) 06/05/19 00:24 Sodium 140 mmol/L (137-145) 06/07/19 05:57 Potassium 4.3 mmol/L (3.6-5.0) 06/07/19 05:57 Chloride 104.3 mmol/L (98-107) 06/07/19 05:57 Carbon Dioxide 25 mmol/L (22-30) 06/07/19 05:57 15 mmol/L 06/07/19 05:57 BUN 9 mg/dL (7-17) 06/07/19 05:57 0.5 mg/dL (0.7-1.2) L 06/07/19 05:57 Estimated GFR > 60 ml/min 06/07/19 05:57 18 % 06/07/19 05:57 Glucose 287 mg/dL (65-100) H 06/07/19 05:57 POC Glucose 272 (70-105) H 06/10/19 11:29 10.9 % (4-6) H 06/05/19 00:26 Lactic Acid 2.60 mmol/L (0.7-2.0) H* 06/05/19 12:32 Calcium 8.2 mg/dL (8.4-10.2) L 06/07/19 05:57 Magnesium 1.70 mg/dL (1.7-2.3) 06/05/19 00:24 0.20 mg/dL (0.1-1.2) 06/05/19 00:24 AST 11 units/L (5-40) 06/05/19 00:24 ALT 14 units/L (7-56) 06/05/19 00:24 158 units/L (35-129) H 06/05/19 00:24 30 units/L (30-135) 06/05/19 00:24 4.7 g/dL (6.3-8.2) L 06/05/19 00:24 2.3 g/dL (3.9-5) L 06/05/19 00:24 1.0 % 06/05/19 00:24 TSH 2.490 mlU/mL (0.270-4.200) 06/06/19 17:13 HCG, Quant 1.37 mIU/mL (0-4) 06/05/19 00:24 Yellow (Yellow) 06/04/19 Unknown Clear (Clear) 06/04/19 Unknown 7.0 (5.0-7.0) 06/04/19 Unknown Ur Specific [place] 1.012 (1.003-1.030) 06/04/19 Unknown 30 mg/dl mg/dL (Negative) 06/04/19 Unknown Trace mg/dL (Negative) 06/04/19 Unknown Negative mg/dL (Negative) 06/04/19 Unknown Negative (Negative) 06/04/19 Unknown Negative (Negative) 06/04/19 Unknown Ur Reducing Substances Not Reportable 06/04/19 Unknown Negative (Negative) 06/04/19 Unknown Not Reportable 06/04/19 Unknown 0.0 mg/dL (<2.0) 06/04/19 Unknown Ur Leukocyte Esterase Negative (Negative) 06/04/19 Unknown 1.0 /HPF (0.0-6.0) 06/04/19 Unknown 1.0 /HPF (0.0-6.0) 06/04/19 Unknown Few /HPF 06/04/19 Unknown Salicylates 0.3 mg/dL (2.8-20.0) L 06/05/19 00:24 Acetaminophen 5.0 ug/mL (10.0-30.0) L 06/05/19 00:24 Plasma/Serum Alcohol 0.01 % (0-0.07) 06/05/19 00:24 Blood Type O POSITIVE 06/06/19 14:23 Antibody Screen Negative 06/06/19 14:23 Crossmatch See Detail 06/06/19 14:23 Active Medications - Current Medications Current Medications: Generic Name Dose Route Start Last Admin Trade Name Freq PRN Reason Stop Dose Admin Acetaminophen 650 mg 06/05/19 08:30 06/08/19 04:00 Tylenol PO 650 mg Q4H PRN Administration Pain MILD(1-3)/Fever >100.5/ROQUE Alprazolam 2 mg 06/10/19 14:15 Xanax PO BID JERMAN Buspirone HCl 7.5 mg 06/05/19 22:00 06/10/19 09:20 Buspar PO 7.5 mg BID JERMAN Administration Dextrose 50 gm 06/04/19 23:21 06/07/19 17:12 D50w (25gm) Vial IV 6.25 gm PRN PRN Administration Hypoglycemia Diphenhydramine HCl 25 mg 06/08/19 13:01 06/09/19 01:04 Benadryl PO 25 mg Q6H PRN Administration Itching Enoxaparin Sodium 40 mg 06/05/19 22:00 06/09/19 21:25 Lovenox SUB-Q 40 mg QDAY@2200 JERMAN Administration Gabapentin 300 mg 06/05/19 10:00 06/10/19 09:21 Neurontin PO 300 mg BID JERMAN Administration Hydromorphone HCl 1 mg 06/05/19 16:35 06/10/19 16:10 Dilaudid IV 1 mg Q3H PRN Administration Pain , Severe (7-10) Insulin Glargine 10 units 06/09/19 23:30 06/10/19 00:13 Lantus SUB-Q 10 units QHS [facility] Administration Insulin Human Lispro 0 unit 06/06/19 16:30 06/10/19 09:29 Humalog SUB-Q Not Given AC [facility] Protocol Insulin Human Regular 0 units 06/06/19 22:00 06/09/19 21:34 Humulin R SUB-Q 4 units QHS [facility] Administration Protocol Ondansetron HCl 4 mg 06/05/19 08:30 Zofran IV Q8H PRN Nausea And Vomiting Oxycodone HCl 10 mg 06/05/19 16:39 Roxicodone PO Q4H PRN Pain, Moderate (4-6) Oxycodone HCl 10 mg 06/10/19 14:00 06/10/19 13:30 Oxycontin PO Not Given Q12HR [facility] Sodium Chloride 10 ml 06/05/19 10:00 06/09/19 21:26 Sodium Chloride Flush Syringe 10 Ml IV 10 ml BID JERMAN Administration Sodium Chloride 10 ml 06/05/19 08:30 06/06/19 04:37 Sodium Chloride Flush Syringe 10 Ml IV 10 ml PRN PRN Administration LINE FLUSH Venlafaxine HCl 75 mg 06/05/19 11:00 06/10/19 09:20 Effexor Xr PO 75 mg QDAY JERMAN Administration Nutrition/Malnutrition Assess - Dietary Evaluation Nutrition/Malnutrition Findings: Nutrition Notes Start: 06/05/19 13:42 Freq: Status: Active Protocol: Document 06/08/19 18:22 RM (Rec: 06/08/19 18:34 RM [id number]) Nutrition Notes Initial or Follow up Assessment Current Diagnosis Diabetes Other Pertinent Diagnosis Pancreatitis,Hx gastric bypass ,PNA,Opiod dependence Current Diet NPO Labs/Tests A1c 10.9 Pertinent Medications Reviewed Height 5 ft 5 in Weight 142 kg [place] Body Weight (kg) 56.81 BMI 52.0 Subjective/Other Information Pt is S/P trochanteric nailing of femur. Pt confused and sleepy at time of visit. NPO despite lunch at bedside w/25% eaten. Percent of energy/protein needs met: 26%/19% Burn Absent Trauma Absent #1 Nutrition Diagnosis Inadequate oral intake Etiology sleepiness As Evidenced by Signs and Symptoms lunch at bedside w/25% eaten Is patient on ventilator? No Is Patient Ambulatory and/or Out of Bed No REE-([facility]-confined to bed) 2517.096 Kcal/Kg value to use for calculation 14 Approximate Energy Requirements Using 1988 kcal/Kg Calculation Used for Recommendations Kcal/kg Additional Notes Protein Needs: 119-149g (1.2-1 .5g/kg 99 kg adjBW) Fluid Needs: 1ml/kcal 23 Nutrition Intervention Change Diet Order: continue current Add Supplement/Snack (indicate name/kcal Glucerna 1 daily /protein ) Provides kCal: 220 Provides Protein (gm) 10 Goal #1 Meet at least 75% of calorie and protein needs via PO and ONS intakes Anticipated Discharge Needs: Consistent CHO diet Follow-Up By: 06/11/19 Additional Comments Follow for PO and ONS intakes, DM diet education
--- NOTE | 2019-06-10 16:19 | Progress Note ---
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 Opioid dependence, chronic pain syndrome fups at pain clinic at [place] -optimize pain meds -preventative health counseling done for 17 minutes -tobacco abuse, counseling done for 10 minutes aocd sp 2 units, improved, tsh wnl amenorrhea fup LH and FSH, 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 Absent: rub, click - Extremities Extremities: pulses symmetrical, No edema Extremity abnormal: other (tenderness and decreased rom of L shoulder and Left hip) Peripheral Pulses: within normal limits - Abdominal General gastrointestinal: Present: soft, non-tender, non-distended, normal bowel sounds Female genitourinary: Present: normal - Integumentary Integumentary: Present: clear, warm, dry - Musculoskeletal Musculoskeletal: gait normal, strength equal bilaterally - Psychiatric Psychiatric: appropriate mood/affect, intact judgment & insight - Neurologic Neurologic: CNII-XII intact, moves all extremities - Constitutional Vitals: Temp Pulse Resp BP Pulse Ox 98.4 F 86 16 103/64 100 06/10/19 07:30 06/10/19 07:30 06/10/19 07:30 06/10/19 07:30 06/10/19 07:45 General appearance: Present: mild distress, cachectic, disheveled Results - Labs CBC & Chem 7: 06/09/19 08:09 06/07/19 05:57 Labs: Laboratory Last Values WBC 3.8 K/mm3 (4.5-11.0) L 06/09/19 08:09 RBC 2.75 M/mm3 (3.65-5.03) L 06/09/19 08:09 Hgb 7.7 gm/dl (10.1-14.3) L 06/09/19 08:09 Hct 23.6 % (30.3-42.9) L 06/09/19 08:09 MCV 86 fl (79-97) 06/09/19 08:09 MCH 28 pg (28-32) 06/09/19 08:09 MCHC 32 % (30-34) 06/09/19 08:09 RDW 19.4 % (13.2-15.2) H 06/09/19 08:09 Plt Count 127 K/mm3 (140-440) L 06/09/19 08:09 Lymph % (Auto) 19.0 % (13.4-35.0) 06/09/19 08:09 [place] % (Auto) 9.6 % (0.0-7.3) H 06/09/19 08:09 Eos % (Auto) 1.2 % (0.0-4.3) 06/09/19 08:09 Baso % (Auto) 0.3 % (0.0-1.8) 06/09/19 08:09 Lymph # 0.7 K/mm3 (1.2-5.4) L 06/09/19 08:09 [place] # 0.4 K/mm3 (0.0-0.8) 06/09/19 08:09 Eos # 0.0 K/mm3 (0.0-0.4) 06/09/19 08:09 Baso # 0.0 K/mm3 (0.0-0.1) 06/09/19 08:09 Seg Neutrophils % 69.9 % (40.0-70.0) 06/09/19 08:09 Seg Neutrophils # 2.7 K/mm3 (1.8-7.7) 06/09/19 08:09 PT 18.0 Sec. (12.2-14.9) H 06/05/19 00:24 INR 1.53 (0.87-1.13) H 06/05/19 00:24 APTT 35.5 Sec. (24.2-36.6) 06/05/19 00:24 Sodium 140 mmol/L (137-145) 06/07/19 05:57 Potassium 4.3 mmol/L (3.6-5.0) 06/07/19 05:57 Chloride 104.3 mmol/L (98-107) 06/07/19 05:57 Carbon Dioxide 25 mmol/L (22-30) 06/07/19 05:57 15 mmol/L 06/07/19 05:57 BUN 9 mg/dL (7-17) 06/07/19 05:57 0.5 mg/dL (0.7-1.2) L 06/07/19 05:57 Estimated GFR > 60 ml/min 06/07/19 05:57 18 % 06/07/19 05:57 Glucose 287 mg/dL (65-100) H 06/07/19 05:57 POC Glucose 272 (70-105) H 06/10/19 11:29 10.9 % (4-6) H 06/05/19 00:26 Lactic Acid 2.60 mmol/L (0.7-2.0) H* 06/05/19 12:32 Calcium 8.2 mg/dL (8.4-10.2) L 06/07/19 05:57 Magnesium 1.70 mg/dL (1.7-2.3) 06/05/19 00:24 0.20 mg/dL (0.1-1.2) 06/05/19 00:24 AST 11 units/L (5-40) 06/05/19 00:24 ALT 14 units/L (7-56) 06/05/19 00:24 158 units/L (35-129) H 06/05/19 00:24 30 units/L (30-135) 06/05/19 00:24 4.7 g/dL (6.3-8.2) L 06/05/19 00:24 2.3 g/dL (3.9-5) L 06/05/19 00:24 1.0 % 06/05/19 00:24 TSH 2.490 mlU/mL (0.270-4.200) 06/06/19 17:13 HCG, Quant 1.37 mIU/mL (0-4) 06/05/19 00:24 Yellow (Yellow) 06/04/19 Unknown Clear (Clear) 06/04/19 Unknown 7.0 (5.0-7.0) 06/04/19 Unknown Ur Specific [place] 1.012 (1.003-1.030) 06/04/19 Unknown 30 mg/dl mg/dL (Negative) 06/04/19 Unknown Trace mg/dL (Negative) 06/04/19 Unknown Negative mg/dL (Negative) 06/04/19 Unknown Negative (Negative) 06/04/19 Unknown Negative (Negative) 06/04/19 Unknown Ur Reducing Substances Not Reportable 06/04/19 Unknown Negative (Negative) 06/04/19 Unknown Not Reportable 06/04/19 Unknown 0.0 mg/dL (<2.0) 06/04/19 Unknown Ur Leukocyte Esterase Negative (Negative) 06/04/19 Unknown 1.0 /HPF (0.0-6.0) 06/04/19 Unknown 1.0 /HPF (0.0-6.0) 06/04/19 Unknown Few /HPF 06/04/19 Unknown Salicylates 0.3 mg/dL (2.8-20.0) L 06/05/19 00:24 Acetaminophen 5.0 ug/mL (10.0-30.0) L 06/05/19 00:24 Plasma/Serum Alcohol 0.01 % (0-0.07) 06/05/19 00:24 Blood Type O POSITIVE 06/06/19 14:23 Antibody Screen Negative 06/06/19 14:23 Crossmatch See Detail 06/06/19 14:23 Active Medications - Current Medications Current Medications: Generic Name Dose Route Start Last Admin Trade Name Freq PRN Reason Stop Dose Admin Acetaminophen 650 mg 06/05/19 08:30 06/08/19 04:00 Tylenol PO 650 mg Q4H PRN Administration Pain MILD(1-3)/Fever >100.5/ROQUE Alprazolam 2 mg 06/10/19 14:15 Xanax PO BID JERMAN Buspirone HCl 7.5 mg 06/05/19 22:00 06/10/19 09:20 Buspar PO 7.5 mg BID JERMAN Administration Dextrose 50 gm 06/04/19 23:21 06/07/19 17:12 D50w (25gm) Vial IV 6.25 gm PRN PRN Administration Hypoglycemia Diphenhydramine HCl 25 mg 06/08/19 13:01 06/09/19 01:04 Benadryl PO 25 mg Q6H PRN Administration Itching Enoxaparin Sodium 40 mg 06/05/19 22:00 06/09/19 21:25 Lovenox SUB-Q 40 mg QDAY@2200 JERMAN Administration Gabapentin 300 mg 06/05/19 10:00 06/10/19 09:21 Neurontin PO 300 mg BID JERMAN Administration Hydromorphone HCl 1 mg 06/05/19 16:35 06/10/19 16:10 Dilaudid IV 1 mg Q3H PRN Administration Pain , Severe (7-10) Insulin Glargine 10 units 06/09/19 23:30 06/10/19 00:13 Lantus SUB-Q 10 units [facility] Administration Insulin Human Lispro 0 unit 06/06/19 16:30 06/10/19 09:29 Humalog SUB-Q Not Given AC [facility] Protocol Insulin Human Regular 0 units 06/06/19 22:00 06/09/19 21:34 Humulin R SUB-Q 4 units [facility] Administration Protocol Ondansetron HCl 4 mg 06/05/19 08:30 Zofran IV Q8H PRN Nausea And Vomiting Oxycodone HCl 10 mg 06/05/19 16:39 Roxicodone PO Q4H PRN Pain, Moderate (4-6) Oxycodone HCl 10 mg 06/10/19 14:00 06/10/19 13:30 Oxycontin PO Not Given Q12[facility] Sodium Chloride 10 ml 06/05/19 10:00 06/09/19 21:26 Sodium Chloride Flush Syringe 10 Ml IV 10 ml BID JERMAN Administration Sodium Chloride 10 ml 06/05/19 08:30 06/06/19 04:37 Sodium Chloride Flush Syringe 10 Ml IV 10 ml PRN PRN Administration LINE FLUSH Venlafaxine HCl 75 mg 06/05/19 11:00 06/10/19 09:20 Effexor Xr PO 75 mg QDAY JERMAN Administration Nutrition/Malnutrition Assess - Dietary Evaluation Nutrition/Malnutrition Findings: Nutrition Notes Start: 06/05/19 13:42 Freq: Status: Active Protocol: Document 06/08/19 18:22 RM (Rec: 06/08/19 18:34 RM [id number]) Nutrition Notes Initial or Follow up Assessment Current Diagnosis Diabetes Other Pertinent Diagnosis Pancreatitis,Hx gastric bypass ,PNA,Opiod dependence Current Diet NPO Labs/Tests A1c 10.9 Pertinent Medications Reviewed Height 5 ft 5 in Weight 142 kg [place] Body Weight (kg) 56.81 BMI 52.0 Subjective/Other Information Pt is S/P trochanteric nailing of femur. Pt confused and sleepy at time of visit. NPO despite lunch at bedside w/25% eaten. Percent of energy/protein needs met: 26%/19% Burn Absent Trauma Absent #1 Nutrition Diagnosis Inadequate oral intake Etiology sleepiness As Evidenced by Signs and Symptoms lunch at bedside w/25% eaten Is patient on ventilator? No Is Patient Ambulatory and/or Out of Bed No REE-([facility]-confined to bed) 2517.096 Kcal/Kg value to use for calculation 14 Approximate Energy Requirements Using 1988 kcal/Kg Calculation Used for Recommendations Kcal/kg Additional Notes Protein Needs: 119-149g (1.2-1 .5g/kg 99 kg adjBW) Fluid Needs: 1ml/kcal 23 Nutrition Intervention Change Diet Order: continue current Add Supplement/Snack (indicate name/kcal Glucerna 1 daily /protein ) Provides kCal: 220 Provides Protein (gm) 10 Goal #1 Meet at least 75% of calorie and protein needs via PO and ONS intakes Anticipated Discharge Needs: Consistent CHO diet Follow-Up By: 06/11/19 Additional Comments Follow for PO and ONS intakes, DM diet education
[2019-06-10] MEDS ORDERED: DIFLUCAN PO ONE (19:00)
[2019-06-10] MEDS: ROXICODONE PO PRN (21:59)
[2019-06-10] MEDS: LOVENOX SUB-Q SCH (22:00)
[2019-06-10] MEDS: SODIUM CHLORIDE FLUSH SYRINGE 10 ML IV SCH (22:01)
[2019-06-10] MEDS: HumuLIN R SUB-Q SCH (22:18)
[2019-06-11] MEDS: DILAUDID IV PRN ×4 (00:11→12:41)
[2019-06-11] MEDS ORDERED: D50W (25GM) Syringe IV ONE (07:12)
[2019-06-11] MEDS: BENADRYL PO PRN ×2 (08:20→19:01)
[2019-06-11] MEDS: HumaLOG SUB-Q SCH ×4 (08:31→22:31)
[2019-06-11] MEDS: NEURONTIN PO SCH ×2 (10:38→21:49)
[2019-06-11] MEDS: XANAX PO SCH ×3 (10:38→22:32)
[2019-06-11] MEDS: OxyCONTIN PO SCH ×3 (10:39→22:33)
[2019-06-11] MEDS: EFFEXOR XR PO SCH (10:39)
[2019-06-11] MEDS: BUSPAR PO SCH ×2 (10:39→21:50)
[2019-06-11] MEDS: SODIUM CHLORIDE FLUSH SYRINGE 10 ML IV SCH (10:51)
[2019-06-11] MEDS: GLUCOPHAGE XR PO SCH (12:45)
--- NOTE | 2019-06-11 12:49 | Progress Note ---
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 Opioid dependence, chronic pain syndrome fups at pain clinic at [place] -optimize pain meds -preventative health counseling done for 17 minutes -tobacco abuse, counseling done for 10 minutes aocd sp 2 units, improved, tsh wnl amenorrhea fup LH and FSH, 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 Absent: rub, click - Extremities Extremities: pulses symmetrical, No edema Extremity abnormal: other (tenderness and decreased rom of L shoulder and Left hip) Peripheral Pulses: within normal limits - Abdominal General gastrointestinal: Present: soft, non-tender, non-distended, normal bowel sounds Female genitourinary: Present: normal - Integumentary Integumentary: Present: clear, warm, dry - Musculoskeletal Musculoskeletal: gait normal, strength equal bilaterally - Psychiatric Psychiatric: appropriate mood/affect, intact judgment & insight - Neurologic Neurologic: CNII-XII intact, moves all extremities - Constitutional Vitals: Temp Pulse Resp BP Pulse Ox 98.1 F 80 20 115/76 96 06/11/19 10:00 06/11/19 10:00 06/11/19 12:41 06/11/19 10:06/11/19 07:34 General appearance: Present: mild distress, cachectic, disheveled Results - Labs CBC & Chem 7: 06/09/19 08:09 06/07/19 05:57 Labs: Laboratory Last Values WBC 3.8 K/mm3 (4.5-11.0) L 06/09/19 08:09 RBC 2.75 M/mm3 (3.65-5.03) L 06/09/19 08:09 Hgb 7.7 gm/dl (10.1-14.3) L 06/09/19 08:09 Hct 23.6 % (30.3-42.9) L 06/09/19 08:09 MCV 86 fl (79-97) 06/09/19 08:09 MCH 28 pg (28-32) 06/09/19 08:09 MCHC 32 % (30-34) 06/09/19 08:09 RDW 19.4 % (13.2-15.2) H 06/09/19 08:09 Plt Count 127 K/mm3 (140-440) L 06/09/19 08:09 Lymph % (Auto) 19.0 % (13.4-35.0) 06/09/19 08:09 [place] % (Auto) 9.6 % (0.0-7.3) H 06/09/19 08:09 Eos % (Auto) 1.2 % (0.0-4.3) 06/09/19 08:09 Baso % (Auto) 0.3 % (0.0-1.8) 06/09/19 08:09 Lymph # 0.7 K/mm3 (1.2-5.4) L 06/09/19 08:09 [place] # 0.4 K/mm3 (0.0-0.8) 06/09/19 08:09 Eos # 0.0 K/mm3 (0.0-0.4) 06/09/19 08:09 Baso # 0.0 K/mm3 (0.0-0.1) 06/09/19 08:09 Seg Neutrophils % 69.9 % (40.0-70.0) 06/09/19 08:09 Seg Neutrophils # 2.7 K/mm3 (1.8-7.7) 06/09/19 08:09 PT 18.0 Sec. (12.2-14.9) H 06/05/19 00:24 INR 1.53 (0.87-1.13) H 06/05/19 00:24 APTT 35.5 Sec. (24.2-36.6) 06/05/19 00:24 Sodium 140 mmol/L (137-145) 06/07/19 05:57 Potassium 4.3 mmol/L (3.6-5.0) 06/07/19 05:57 Chloride 104.3 mmol/L (98-107) 06/07/19 05:57 Carbon Dioxide 25 mmol/L (22-30) 06/07/19 05:57 15 mmol/L 06/07/19 05:57 BUN 9 mg/dL (7-17) 06/07/19 05:57 0.5 mg/dL (0.7-1.2) L 06/07/19 05:57 Estimated GFR > 60 ml/min 06/07/19 05:57 18 % 06/07/19 05:57 Glucose 287 mg/dL (65-100) H 06/07/19 05:57 POC Glucose 96 (70-105) 06/11/19 07:50 10.9 % (4-6) H 06/05/19 00:26 Lactic Acid 2.60 mmol/L (0.7-2.0) H* 06/05/19 12:32 Calcium 8.2 mg/dL (8.4-10.2) L 06/07/19 05:57 Magnesium 1.70 mg/dL (1.7-2.3) 06/05/19 00:24 0.20 mg/dL (0.1-1.2) 06/05/19 00:24 AST 11 units/L (5-40) 06/05/19 00:24 ALT 14 units/L (7-56) 06/05/19 00:24 158 units/L (35-129) H 06/05/19 00:24 30 units/L (30-135) 06/05/19 00:24 4.7 g/dL (6.3-8.2) L 06/05/19 00:24 2.3 g/dL (3.9-5) L 06/05/19 00:24 1.0 % 06/05/19 00:24 TSH 2.490 mlU/mL (0.270-4.200) 06/06/19 17:13 HCG, Quant 1.37 mIU/mL (0-4) 06/05/19 00:24 Yellow (Yellow) 06/04/19 Unknown Clear (Clear) 06/04/19 Unknown 7.0 (5.0-7.0) 06/04/19 Unknown Ur Specific [place] 1.012 (1.003-1.030) 06/04/19 Unknown 30 mg/dl mg/dL (Negative) 06/04/19 Unknown Trace mg/dL (Negative) 06/04/19 Unknown Negative mg/dL (Negative) 06/04/19 Unknown Negative (Negative) 06/04/19 Unknown Negative (Negative) 06/04/19 Unknown Ur Reducing Substances Not Reportable 06/04/19 Unknown Negative (Negative) 06/04/19 Unknown Not Reportable 06/04/19 Unknown 0.0 mg/dL (<2.0) 06/04/19 Unknown Ur Leukocyte Esterase Negative (Negative) 06/04/19 Unknown 1.0 /HPF (0.0-6.0) 06/04/19 Unknown 1.0 /HPF (0.0-6.0) 06/04/19 Unknown Few /HPF 06/04/19 Unknown Salicylates 0.3 mg/dL (2.8-20.0) L 06/05/19 00:24 Acetaminophen 5.0 ug/mL (10.0-30.0) L 06/05/19 00:24 Plasma/Serum Alcohol 0.01 % (0-0.07) 06/05/19 00:24 Blood Type O POSITIVE 06/06/19 14:23 Antibody Screen Negative 06/06/19 14:23 Crossmatch See Detail 06/06/19 14:23 Active Medications - Current Medications Current Medications: Generic Name Dose Route Start Last Admin Trade Name Freq PRN Reason Stop Dose Admin Acetaminophen 650 mg 06/05/19 08:30 06/08/19 04:00 Tylenol PO 650 mg Q4H PRN Administration Pain MILD(1-3)/Fever >100.5/ROQUE Alprazolam 2 mg 06/10/19 14:15 06/11/19 10:38 Xanax PO 2 mg BID JERMAN Administration Buspirone HCl 7.5 mg 06/05/19 22:00 06/11/19 10:39 Buspar PO 7.5 mg BID JERMAN Administration Dextrose 50 gm 06/04/19 23:21 06/07/19 17:12 D50w (25gm) Vial IV 6.25 gm PRN PRN Administration Hypoglycemia Diphenhydramine HCl 25 mg 06/08/19 13:01 06/09/19 01:04 Benadryl PO 25 mg Q6H PRN Administration Itching Enoxaparin Sodium 40 mg 06/05/19 22:00 06/10/19 22:00 Lovenox SUB-Q 40 mg QDAY@2200 JERMAN Administration Gabapentin 300 mg 06/05/19 10:00 06/11/19 10:38 Neurontin PO 300 mg BID JERMAN Administration Hydromorphone HCl 1 mg 06/05/19 16:35 06/11/19 12:41 Dilaudid IV 1 mg Q3H PRN Administration Pain , Severe (7-10) Insulin Human Lispro 0 unit 06/06/19 16:30 06/11/19 08:31 Humalog SUB-Q Not Given AC [facility] Protocol Metformin HCl 500 mg 06/11/19 10:00 06/11/19 12:45 Glucophage Xr PO 500 mg QDDIAB JERMAN Administration Ondansetron HCl 4 mg 06/05/19 08:30 Zofran IV Q8H PRN Nausea And Vomiting Oxycodone HCl 10 mg 06/05/19 16:39 06/10/19 21:59 Roxicodone PO 10 mg Q4H PRN Administration Pain, Moderate (4-6) Oxycodone HCl 10 mg 06/10/19 14:00 06/11/19 10:39 Oxycontin PO 10 mg Q12HR JERMAN Administration Sodium Chloride 10 ml 06/05/19 10:00 06/11/19 10:51 Sodium Chloride Flush Syringe 10 Ml IV 10 ml BID JERMAN Administration Sodium Chloride 10 ml 06/05/19 08:30 06/06/19 04:37 Sodium Chloride Flush Syringe 10 Ml IV 10 ml PRN PRN Administration LINE FLUSH Venlafaxine HCl 75 mg 06/05/19 11:00 06/11/19 10:39 Effexor Xr PO 75 mg QDAY JERMAN Administration Nutrition/Malnutrition Assess - Dietary Evaluation Nutrition/Malnutrition Findings: Nutrition Notes Start: 06/05/19 13:4 2 Freq: Status: Active Protocol: Document 06/08/19 18:22 RM (Rec: 06/08/19 18:34 RM [id number]) Nutrition Notes Initial or Follow up Assessment Current Diagnosis Diabetes Other Pertinent Diagnosis Pancreatitis,Hx gastric bypass ,PNA,Opiod dependence Current Diet NPO Labs/Tests A1c 10.9 Pertinent Medications Reviewed Height 5 ft 5 in Weight 142 kg [place] Body Weight (kg) 56.81 BMI 52.0 Subjective/Other Information Pt is S/P trochanteric nailing of femur. Pt confused and sleepy at time of visit. NPO despite lunch at bedside w/25% eaten. Percent of energy/protein needs met: 26%/19% Burn Absent Trauma Absent #1 Nutrition Diagnosis Inadequate oral intake Etiology sleepiness As Evidenced by Signs and Symptoms lunch at bedside w/25% eaten Is patient on ventilator? No Is Patient Ambulatory and/or Out of Bed No REE-([place] [facility]-confined to bed) 2517.096 Kcal/Kg value to use for calculation 14 Approximate Energy Requirements Using 1988 kcal/Kg Calculation Used for Recommendations Kcal/kg Additional Notes Protein Needs: 119-149g (1.2-1 .5g/kg 99 kg adjBW) Fluid Needs: 1ml/kcal 23 Nutrition Intervention Change Diet Order: continue current Add Supplement/Snack (indicate name/kcal Glucerna 1 daily /protein ) Provides kCal: 220 Provides Protein (gm) 10 Goal #1 Meet at least 75% of calorie and protein needs via PO and ONS intakes Anticipated Discharge Needs: Consistent CHO diet Follow-Up By: 06/11/19 Additional Comments Follow for PO and ONS intakes, DM diet education
[2019-06-11] MEDS: ROXICODONE PO PRN ×3 (14:55→21:59)
--- NOTE | 2019-06-11 17:27 | Progress Note ---
Assessment and Plan left intertrochanteric hip fracture Subjective Date of service: 06/11/19 Interval history: Complaining of pain right arm and leg otherwise okay Objective Vital signs: Vital Signs - 12hr 06/11/19 06/11/19 06/11/19 07:34 08:19 10:00 Temperature 98.1 F Pulse Rate 80 Respiratory 20 90 H Rate Blood Pressure 115/76 [Left] O2 Sat by Pulse 96 Oximetry 06/11/19 06/11/19 06/11/19 10:39 12:00 12:41 Temperature 97.7 F Pulse Rate 49 L Respiratory 20 16 20 Rate Blood Pressure 127/77 [Left] O2 Sat by Pulse 73 L Oximetry 06/11/19 14:55 Temperature Pulse Rate Respiratory 20 Rate Blood Pressure [Left] O2 Sat by Pulse Oximetry Incision: healing, clean and dry Weight bearing status: as tolerated - Labs CBC & BMP: 06/09/19 08:09 06/07/19 05:57 Labs: Abnormal lab results 06/10/19 06/10/19 06/11/19 Range/Units 16:29 20:52 03:39 POC Glucose 320 H 365 H 397 H (70-105) 06/11/19 06/11/19 Range/Units 07:09 13:42 POC Glucose 56 L 274 H (70-105)
[2019-06-11] MEDS: LOVENOX SUB-Q SCH (21:51)
[2019-06-12] MEDS: SODIUM CHLORIDE FLUSH SYRINGE 10 ML IV SCH ×3 (05:26→21:28)
[2019-06-12] MEDS: ROXICODONE PO PRN ×5 (06:21→21:26)
[2019-06-12] MEDS: HumaLOG SUB-Q SCH ×3 (07:30→17:17)
[2019-06-12] MEDS: GLUCOPHAGE XR PO SCH (08:59)
[2019-06-12] MEDS: NEURONTIN PO SCH ×2 (09:00→21:27)
[2019-06-12] MEDS: BUSPAR PO SCH ×2 (09:00→21:25)
[2019-06-12] MEDS: OxyCONTIN PO SCH ×2 (09:01→21:30)
[2019-06-12] MEDS: XANAX PO SCH ×2 (09:01→21:26)
[2019-06-12] MEDS: EFFEXOR XR PO SCH (09:54)
--- NOTE | 2019-06-12 15:36 | Progress Note ---
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 She is c/o of generalized pain. Patient was somnolent and still asking for pain medicine. Hospitalist Physical - Physical exam Narrative exam: Not in cardiopulmonary distress. The patient appeared well nourished and normally developed. Vital signs as documented. Head exam is unremarkable. No scleral icterus . Neck is without jugular venous distension, thyromegaly, or carotid bruits. Lungs are clear to auscultation. Cardiac exam reveals regular rate and Rhythm. Abdominal exam reveals normal bowel sounds. Extremities swelling of the left hand. 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 - Constitutional Vitals: Temp Pulse Resp BP Pulse Ox 99.0 F 98 H 20 110/64 95 06/12/19 12:46 06/12/19 12:46 06/12/19 13:56 06/12/19 12:46 06/12/19 12:46 General appearance: Present: mild distress, cachectic, disheveled Results - Labs CBC & Chem 7: 06/09/19 08:09 06/07/19 05:57 Labs: Laboratory Last Values WBC 3.8 K/mm3 (4.5-11.0) L 06/09/19 08:09 RBC 2.75 M/mm3 (3.65-5.03) L 06/09/19 08:09 Hgb 7.7 gm/dl (10.1-14.3) L 06/09/19 08:09 Hct 23.6 % (30.3-42.9) L 06/09/19 08:09 MCV 86 fl (79-97) 06/09/19 08:09 MCH 28 pg (28-32) 06/09/19 08:09 MCHC 32 % (30-34) 06/09/19 08:09 RDW 19.4 % (13.2-15.2) H 06/09/19 08:09 Plt Count 127 K/mm3 (140-440) L 06/09/19 08:09 Lymph % (Auto) 19.0 % (13.4-35.0) 06/09/19 08:09 [place] % (Auto) 9.6 % (0.0-7.3) H 06/09/19 08:09 Eos % (Auto) 1.2 % (0.0-4.3) 06/09/19 08:09 Baso % (Auto) 0.3 % (0.0-1.8) 06/09/19 08:09 Lymph # 0.7 K/mm3 (1.2-5.4) L 06/09/19 08:09 [place] # 0.4 K/mm3 (0.0-0.8) 06/09/19 08:09 Eos # 0.0 K/mm3 (0.0-0.4) 06/09/19 08:09 Baso # 0.0 K/mm3 (0.0-0.1) 06/09/19 08:09 Seg Neutrophils % 69.9 % (40.0-70.0) 06/09/19 08:09 Seg Neutrophils # 2.7 K/mm3 (1.8-7.7) 06/09/19 08:09 PT 18.0 Sec. (12.2-14.9) H 06/05/19 00:24 INR 1.53 (0.87-1.13) H 06/05/19 00:24 APTT 35.5 Sec. (24.2-36.6) 06/05/19 00:24 Sodium 140 mmol/L (137-145) 06/07/19 05:57 Potassium 4.3 mmol/L (3.6-5.0) 06/07/19 05:57 Chloride 104.3 mmol/L (98-107) 06/07/19 05:57 Carbon Dioxide 25 mmol/L (22-30) 06/07/19 05:57 15 mmol/L 06/07/19 05:57 BUN 9 mg/dL (7-17) 06/07/19 05:57 0.5 mg/dL (0.7-1.2) L 06/07/19 05:57 Estimated GFR > 60 ml/min 06/07/19 05:57 18 % 06/07/19 05:57 Glucose 287 mg/dL (65-100) H 06/07/19 05:57 POC Glucose 437 (70-105) H 06/12/19 12:01 10.9 % (4-6) H 06/05/19 00:26 Lactic Acid 2.60 mmol/L (0.7-2.0) H* 06/05/19 12:32 Calcium 8.2 mg/dL (8.4-10.2) L 06/07/19 05:57 Magnesium 1.70 mg/dL (1.7-2.3) 06/05/19 00:24 0.20 mg/dL (0.1-1.2) 06/05/19 00:24 AST 11 units/L (5-40) 06/05/19 00:24 ALT 14 units/L (7-56) 06/05/19 00:24 158 units/L (35-129) H 06/05/19 00:24 30 units/L (30-135) 06/05/19 00:24 4.7 g/dL (6.3-8.2) L 06/05/19 00:24 2.3 g/dL (3.9-5) L 06/05/19 00:24 1.0 % 06/05/19 00:24 TSH 2.490 mlU/mL (0.270-4.200) 06/06/19 17:13 FSH 5.5 mIU/mL () 06/06/19 17:13 HCG, Quant 1.37 mIU/mL (0-4) 06/05/19 00:24 Yellow (Yellow) 06/04/19 Unknown Clear (Clear) 06/04/19 Unknown 7.0 (5.0-7.0) 06/04/19 Unknown Ur Specific [place] 1.012 (1.003-1.030) 06/04/19 Unknown 30 mg/dl mg/dL (Negative) 06/04/19 Unknown Trace mg/dL (Negative) 06/04/19 Unknown Negative mg/dL (Negative) 06/04/19 Unknown Negative (Negative) 06/04/19 Unknown Negative (Negative) 06/04/19 Unknown Ur Reducing Substances Not Reportable 06/04/19 Unknown Negative (Negative) 06/04/19 Unknown Not Reportable 06/04/19 Unknown 0.0 mg/dL (<2.0) 06/04/19 Unknown Ur Leukocyte Esterase Negative (Negative) 06/04/19 Unknown 1.0 /HPF (0.0-6.0) 06/04/19 Unknown 1.0 /HPF (0.0-6.0) 06/04/19 Unknown Few /HPF 06/04/19 Unknown Salicylates 0.3 mg/dL (2.8-20.0) L 06/05/19 00:24 Acetaminophen 5.0 ug/mL (10.0-30.0) L 06/05/19 00:24 Plasma/Serum Alcohol 0.01 % (0-0.07) 06/05/19 00:24 Blood Type O POSITIVE 06/06/19 14:23 Antibody Screen Negative 06/06/19 14:23 Crossmatch See Detail 06/06/19 14:23 Active Medications - Current Medications Current Medications: Generic Name Dose Route Start Last Admin Trade Name Freq PRN Reason Stop Dose Admin Acetaminophen 650 mg 06/05/19 08:30 06/08/19 04:00 Tylenol PO 650 mg Q4H PRN Administration Pain MILD(1-3)/Fever >100.5/ROQUE Alprazolam 2 mg 06/10/19 14:15 06/12/19 09:01 Xanax PO 2 mg BID JERMAN Administration Buspirone HCl 7.5 mg 06/05/19 22:00 06/12/19 09:00 Buspar PO 7.5 mg BID JERMAN Administration Dextrose 50 gm 06/04/19 23:21 06/07/19 17:12 D50w (25gm) Vial IV 6.25 gm PRN PRN Administration Hypoglycemia Diphenhydramine HCl 25 mg 06/08/19 13:01 06/11/19 19:01 Benadryl PO 25 mg Q6H PRN Administration Itching Enoxaparin Sodium 40 mg 06/05/19 22:00 06/11/19 21:51 Lovenox SUB-Q 40 mg QDAY@2200 JERMAN Administration Gabapentin 300 mg 06/05/19 10:00 06/12/19 09:00 Neurontin PO 300 mg BID JERMAN Administration Insulin Human Lispro 0 unit 06/06/19 16:30 06/12/19 12:34 Humalog SUB-Q 5 unit AC JERMAN Administration Protocol Metformin HCl 500 mg 06/11/19 10:00 06/12/19 08:59 Glucophage Xr PO 500 mg QDDIAB JERMAN Administration Ondansetron HCl 4 mg 06/05/19 08:30 Zofran IV Q8H PRN Nausea And Vomiting Oxycodone HCl 10 mg 06/05/19 16:39 06/12/19 13:56 Roxicodone PO 10 mg Q4H PRN Administration Pain, Moderate (4-6) Oxycodone HCl 10 mg 06/10/19 14:00 06/12/19 09:01 Oxycontin PO Not Given Q12HR JERMAN Sodium Chloride 10 ml 06/05/19 10:00 06/12/19 09:05 Sodium Chloride Flush Syringe 10 Ml IV 10 ml BID JERMAN Administration Sodium Chloride 10 ml 06/05/19 08:30 06/06/19 04:37 Sodium Chloride Flush Syringe 10 Ml IV 10 ml PRN PRN Administration LINE FLUSH Venlafaxine HCl 75 mg 06/05/19 11:00 06/12/19 09:54 Effexor Xr PO 75 mg QDAY JERMAN Administration Nutrition/Malnutrition Assess - Dietary Evaluation Nutrition/Malnutrition Findings: Nutrition Notes Start: 06/05/19 13:42 Freq: Status: Active Protocol: Document 06/11/19 16:11 OH (Rec: 06/11/19 16:17 OH [id number]) Nutrition Notes Initial or Follow up Reassessment Other Pertinent Diagnosis Pancreatitis,Hx gastric bypass ,PNA,Opiod dependence Current Diet Consistent CHO Labs/Tests Reviewed Pertinent Medications Reviewed Height 5 ft 5 in Weight 142 kg [place] Body Weight (kg) 56.81 BMI 52.0 Subjective/Other Information Pt. sitting up in bed eating demarco crackers. Pt. discussing with nurse upon my arrival regarding next time she could receive her pain medication. RN educating patient that she was just provided pain medication and next dose was at noon. Pt. reports she prepares meals at home. She has 4 children who live with her at an extended stay hotel. Per pt she has a PCP who oversees her diabetes managment. Pt. also has pain management MD. Percent of energy/protein needs met: <50/50% Burn Absent Trauma Absent #1 Nutrition Diagnosis Inadequate oral intake Is patient on ventilator? No Is Patient Ambulatory and/or Out of Bed No REE-([facility]-confined to bed) 2517.096 Kcal/Kg value to use for calculation 14 Approximate Energy Requirements Using 1988 kcal/Kg Calculation Used for Recommendations Kcal/kg Additional Notes Protein Needs: 119-149g (1.2-1 .5g/kg 99 kg adjBW) Fluid Needs: 1ml/kcal Nutrition Intervention Change Diet Order: Cont consistent CHO Add Supplement/Snack (indicate name/kcal Glucerna 1 daily /protein ) Provides kCal: 220 Provides Protein (gm) 10 Goal #1 Meet at least 75% of calorie and protein needs via PO and ONS intakes Anticipated Discharge Needs: Consistent CHO diet Follow-Up By: 06/15/19 Additional Comments Follow for PO and ONS intakes, DM diet education
[2019-06-12] MEDS: LOVENOX SUB-Q SCH (21:26)
[2019-06-13] MEDS: ROXICODONE PO PRN ×3 (07:49→18:07)
[2019-06-13 07:53] LABS: Basophils % (Auto) 0.5 % (0.0-1.8); Eosinophils % (Auto) 0.9 % (0.0-4.3); Hematocrit 20.8 % (30.3-42.9); Hemoglobin 6.6 gm/dl (10.1-14.3); Lymphocytes # (Auto) 0.9 K/mm3 (1.2-5.4); Lymphocytes % (Auto) 29.9 % (13.4-35.0); Mean Corpuscular HGB Conc 32 % (30-34); Mean Corpuscular Volume 86 fl (79-97); Monocytes # (Auto) 0.3 K/mm3 (0.0-0.8); Monocytes % (Auto) 11.2 % (0.0-7.3); Platelet Count 204 K/mm3 (140-440); Red Blood Count 2.41 M/mm3 (3.65-5.03); Red Cell Distribution Width 19.2 % (13.2-15.2)
[2019-06-13 08:30] LABS: BUN/Creatinine Ratio 37; Blood Urea Nitrogen 11 mg/dL (7-17); Calcium 7.8 mg/dL (8.4-10.2); Hemolysis Index 5
[2019-06-13] MEDS ORDERED: NACL 0.9% 500 ML 500 ML IV NR (09:11)
[2019-06-13] MEDS: EFFEXOR XR PO SCH (09:43)
[2019-06-13] MEDS: BUSPAR PO SCH ×2 (09:43→22:27)
[2019-06-13] MEDS: GLUCOPHAGE XR PO SCH (09:43)
[2019-06-13] MEDS: OxyCONTIN PO SCH ×2 (09:43→22:27)
[2019-06-13] MEDS: XANAX PO SCH ×3 (09:43→22:27)
[2019-06-13] MEDS: HumaLOG SUB-Q SCH ×3 (09:45→18:21)
[2019-06-13] MEDS: NEURONTIN PO SCH ×2 (09:45→22:27)
[2019-06-13] MEDS: SODIUM CHLORIDE FLUSH SYRINGE 10 ML IV SCH ×2 (09:45→22:30)
--- NOTE | 2019-06-13 13:31 | Vascular Lab Report ---
LEFT UPPER EXTREMITY VENOUS DOPPLER ULTRASOUND HISTORY: Left upper extremity pain and swelling COMPARISON: None. TECHNIQUE: Grayscale, color and spectral Doppler imaging of the venous system of the left upper extre mity was performed. FINDINGS: Internal Jugular Vein: Partially compressible suggesting chronic thrombotic residua. Subclavian Vein: Partially compressible suggesting chronic thrombotic residua. Axillary Vein: Normal venous flow, compressibility and augmentation. Brachial vein: Normal venous flow, compressibility and augmentation. Basilic vein: Normal venous flow, compressibility and augmentation. Cephalic vein: Normal venous flow, compressibility and augmentation. Additional Findings: None. IMPRESSION: 1. The left internal jugular vein and left subclavian vein are partially compressible with a suggesti on of chronic thrombotic residua. Otherwise, there is no evidence for acute DVT in the left upper ext remity. Signer Name: Miguel Angel Carver Jr, MD Signed: 06/13/2019 1:27 PM Workstation Name: [id number]
--- NOTE | 2019-06-13 16:51 | Progress Note ---
Assessment and Plan Assessment and plan: 39F with hx of multiple falls and fractures in the past who presents sp fall with pain in LUE and LLE - Left hip fracture/left shoulder fracture - pain meds, ortho consult, sp surgery on 06/07 - cont PT Severe anemia -Hemoglobin this morning was 6.6, will transfuse him 2 units of blood, monitor H&H Swelling of left upper extremity - Doppler ultrasound was done and showed no acute DVT or arterial occlusion PNA -has completed abx hx of LE dvt restart xarelto when safe to do so after surgery will held DM cont ssi FTT -unable to care for self, will need PT consult after sx -has had multiple surgeries and falls, CM mgt consult and may need placement 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 She is c/o of generalized pain. Patient was asking for Dilaudid. Hospitalist Physical - Physical exam Narrative exam: Not in cardiopulmonary distress. The patient appeared well nourished and normally developed. Vital signs as documented. Head exam is unremarkable. No scleral icterus . Neck is without jugular venous distension, thyromegaly, or carotid bruits. Lungs are clear to auscultation. Cardiac exam reveals regular rate and Rhythm. Abdominal exam reveals normal bowel sounds. Extremities swelling of the left hand. 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 - Constitutional Vitals: Temp Pulse Resp BP Pulse Ox 98 F 84 18 113/72 96 06/13/19 08:42 06/13/19 08:42 06/13/19 08:42 06/13/19 08:42 06/13/19 10:16 General appearance: Present: mild distress, cachectic, disheveled Results - Labs CBC & Chem 7: 06/13/19 07:35 06/13/19 07:35 Labs: Laboratory Last Values WBC 2.9 K/mm3 (4.5-11.0) L 06/13/19 07:35 RBC 2.41 M/mm3 (3.65-5.03) L 06/13/19 07:35 Hgb 6.6 gm/dl (10.1-14.3) L 06/13/19 07:35 Hct 20.8 % (30.3-42.9) L 06/13/19 07:35 MCV 86 fl (79-97) 06/13/19 07:35 MCH 28 pg (28-32) 06/13/19 07:35 MCHC 32 % (30-34) 06/13/19 07:35 RDW 19.2 % (13.2-15.2) H 06/13/19 07:35 Plt Count 204 K/mm3 (140-440) 06/13/19 07:35 Lymph % (Auto) 29.9 % (13.4-35.0) 06/13/19 07:35 [place] % (Auto) 11.2 % (0.0-7.3) H 06/13/19 07:35 Eos % (Auto) 0.9 % (0.0-4.3) 06/13/19 07:35 Baso % (Auto) 0.5 % (0.0-1.8) 06/13/19 07:35 Lymph # 0.9 K/mm3 (1.2-5.4) L 06/13/19 07:35 [place] # 0.3 K/mm3 (0.0-0.8) 06/13/19 07:35 Eos # 0.0 K/mm3 (0.0-0.4) 06/13/19 07:35 Baso # 0.0 K/mm3 (0.0-0.1) 06/13/19 07:35 Seg Neutrophils % 57.5 % (40.0-70.0) 06/13/19 07:35 Seg Neutrophils # 1.7 K/mm3 (1.8-7.7) L 06/13/19 07:35 PT 18.0 Sec. (12.2-14.9) H 06/05/19 00:24 INR 1.53 (0.87-1.13) H 06/05/19 00:24 APTT 35.5 Sec. (24.2-36.6) 06/05/19 00:24 Sodium 138 mmol/L (137-145) 06/13/19 07:35 Potassium 4.4 mmol/L (3.6-5.0) 06/13/19 07:35 Chloride 99.0 mmol/L (98-107) 06/13/19 07:35 Carbon Dioxide 31 mmol/L (22-30) H 06/13/19 07:35 12 mmol/L 06/13/19 07:35 BUN 11 mg/dL (7-17) 06/13/19 07:35 0.3 mg/dL (0.7-1.2) L 06/13/19 07:35 Estimated GFR > 60 ml/min 06/13/19 07:35 37 % 06/13/19 07:35 Glucose 359 mg/dL (65-100) H 06/13/19 07:35 POC Glucose 132 (70-105) H 06/12/19 21:36 10.9 % (4-6) H 06/05/19 00:26 Lactic Acid 2.60 mmol/L (0.7-2.0) H* 06/05/19 12:32 Calcium 7.8 mg/dL (8.4-10.2) L 06/13/19 07:35 Magnesium 1.70 mg/dL (1.7-2.3) 06/05/19 00:24 0.20 mg/dL (0.1-1.2) 06/05/19 00:24 AST 11 units/L (5-40) 06/05/19 00:24 ALT 14 units/L (7-56) 06/05/19 00:24 158 units/L (35-129) H 06/05/19 00:24 30 units/L (30-135) 06/05/19 00:24 4.7 g/dL (6.3-8.2) L 06/05/19 00:24 2.3 g/dL (3.9-5) L 06/05/19 00:24 1.0 % 06/05/19 00:24 TSH 2.490 mlU/mL (0.270-4.200) 06/06/19 17:13 FSH 5.5 mIU/mL () 06/06/19 17:13 HCG, Quant 1.37 mIU/mL (0-4) 06/05/19 00:24 Yellow (Yellow) 06/04/19 Unknown Clear (Clear) 06/04/19 Unknown 7.0 (5.0-7.0) 06/04/19 Unknown Ur Specific [place] 1.012 (1.003-1.030) 06/04/19 Unknown 30 mg/dl mg/dL (Negative) 06/04/19 Unknown Trace mg/dL (Negative) 06/04/19 Unknown Negative mg/dL (Negative) 06/04/19 Unknown Negative (Negative) 06/04/19 Unknown Negative (Negative) 06/04/19 Unknown Ur Reducing Substances Not Reportable 06/04/19 Unknown Negative (Negative) 06/04/19 Unknown Not Reportable 06/04/19 Unknown 0.0 mg/dL (<2.0) 06/04/19 Unknown Ur Leukocyte Esterase Negative (Negative) 06/04/19 Unknown 1.0 /HPF (0.0-6.0) 06/04/19 Unknown 1.0 /HPF (0.0-6.0) 06/04/19 Unknown Few /HPF 06/04/19 Unknown Salicylates 0.3 mg/dL (2.8-20.0) L 06/05/19 00:24 Acetaminophen 5.0 ug/mL (10.0-30.0) L 06/05/19 00:24 Plasma/Serum Alcohol 0.01 % (0-0.07) 06/05/19 00:24 Blood Type O POSITIVE 06/13/19 10:11 Antibody Screen Negative 06/13/19 10:11 Crossmatch See Detail 06/13/19 10:11 Active Medications - Current Medications Current Medications: Generic Name Dose Route Start Last Admin Trade Name Freq PRN Reason Stop Dose Admin Acetaminophen 650 mg 06/05/19 08:30 06/08/19 04:00 Tylenol PO 650 mg Q4H PRN Administration Pain MILD(1-3)/Fever >100.5/ROQUE Alprazolam 2 mg 06/10/19 14:15 06/13/19 09:44 Xanax PO 2 mg BID JERMAN Administration Buspirone HCl 7.5 mg 06/05/19 22:00 06/13/19 09:43 Buspar PO 7.5 mg BID JERMAN Administration Dextrose 50 gm 06/04/19 23:21 06/07/19 17:12 D50w (25gm) Vial IV 6.25 gm PRN PRN Administration Hypoglycemia Diphenhydramine HCl 25 mg 06/08/19 13:01 06/11/19 19:01 Benadryl PO 25 mg Q6H PRN Administration Itching Enoxaparin Sodium 40 mg 06/05/19 22:00 06/12/19 21:26 Lovenox SUB-Q 40 mg QDAY@2200 JERMAN Administration Gabapentin 300 mg 06/05/19 10:00 06/13/19 09:45 Neurontin PO 300 mg BID JERMAN Administration Insulin Human Lispro 0 unit 06/06/19 16:30 06/13/19 12:54 Humalog SUB-Q 1 unit AC JERMAN Administration Protocol Metformin HCl 500 mg 06/11/19 10:00 06/13/19 09:43 Glucophage Xr PO 500 mg QDDIAB JERMAN Administration Ondansetron HCl 4 mg 06/05/19 08:30 Zofran IV Q8H PRN Nausea And Vomiting Oxycodone HCl 10 mg 06/05/19 16:39 06/13/19 11:52 Roxicodone PO 10 mg Q4H PRN Administration Pain, Moderate (4-6) Oxycodone HCl 10 mg 06/10/19 14:00 06/13/19 09:43 Oxycontin PO 10 mg Q12HR JERMAN Administration Sodium Chloride 10 ml 06/05/19 10:00 06/13/19 09:45 Sodium Chloride Flush Syringe 10 Ml IV 10 ml BID JERMAN Administration Sodium Chloride 10 ml 06/05/19 08:30 06/06/19 04:37 Sodium Chloride Flush Syringe 10 Ml IV 10 ml PRN PRN Administration LINE FLUSH Venlafaxine HCl 75 mg 06/05/19 11:00 06/13/19 09:43 Effexor Xr PO 75 mg QDAY JERMAN Administration Nutrition/Malnutrition Assess - Dietary Evaluation Nutrition/Malnutrition Findings: Nutrition Notes Start: 06/05/19 13:42 Freq: Status: Active Protocol: Document 06/11/19 16:11 OH (Rec: 06/11/19 16:17 OH [id number]) Nutrition Notes Initial or Follow up Reassessment Other Pertinent Diagnosis Pancreatitis,Hx gastric bypass ,PNA,Opiod dependence Current Diet Consistent CHO Labs/Tests Reviewed Pertinent Medications Reviewed Height 5 ft 5 in Weight 142 kg [place] Body Weight (kg) 56.81 BMI 52.0 Subjective/Other Information Pt. sitting up in bed eating demarco crackers. Pt. discussing with nurse upon my arrival regarding next time she could receive her pain medication. RN educating patient that she was just provided pain medication and next dose was at noon. Pt. reports she prepares meals at home. She has 4 children who live with her at an extended stay hotel. Per pt she has a PCP who oversees her diabetes managment. Pt. also has pain management MD. Percent of energy/protein needs met: <50/50% Burn Absent Trauma Absent #1 Nutrition Diagnosis Inadequate oral intake Is patient on ventilator? No Is Patient Ambulatory and/or Out of Bed No REE-([facility]-confined to bed) 2517.096 Kcal/Kg value to use for calculation 14 Approximate Energy Requirements Using 1988 kcal/Kg Calculation Used for Recommendations Kcal/kg Additional Notes Protein Needs: 119-149g (1.2-1 .5g/kg 99 kg adjBW) Fluid Needs: 1ml/kcal Nutrition Intervention Change Diet Order: Cont consistent CHO Add Supplement/Snack (indicate name/kcal Glucerna 1 daily /protein ) Provides kCal: 220 Provides Protein (gm) 10 Goal #1 Meet at least 75% of calorie and protein needs via PO and ONS intakes Anticipated Discharge Needs: Consistent CHO diet Follow-Up By: 06/15/19 Additional Comments Follow for PO and ONS intakes, DM diet education
[2019-06-13] MEDS: LOVENOX SUB-Q SCH (22:30)
[2019-06-13] MEDS ORDERED: NACL 0.9% 500 ML IV ONE (23:45)
[2019-06-14] MEDS: ROXICODONE PO PRN ×6 (04:21→21:03)
[2019-06-14] MEDS: XANAX PO SCH ×3 (08:20→21:00)
[2019-06-14] MEDS: GLUCOPHAGE XR PO SCH (08:20)
[2019-06-14] MEDS: EFFEXOR XR PO SCH ×2 (08:20→10:00)
[2019-06-14 09:43] LABS: Basophils % (Auto) 0.2 % (0.0-1.8); Eosinophils % (Auto) 0.5 % (0.0-4.3); Hematocrit 30.8 % (30.3-42.9); Hemoglobin 9.8 gm/dl (10.1-14.3); Lymphocytes # (Auto) 0.7 K/mm3 (1.2-5.4); Lymphocytes % (Auto) 17.6 % (13.4-35.0); Mean Corpuscular HGB Conc 32 % (30-34); Mean Corpuscular Volume 88 fl (79-97); Monocytes # (Auto) 0.4 K/mm3 (0.0-0.8); Monocytes % (Auto) 9.2 % (0.0-7.3); Platelet Count 215 K/mm3 (140-440); Red Blood Count 3.51 M/mm3 (3.65-5.03); Red Cell Distribution Width 17.3 % (13.2-15.2)
[2019-06-14] MEDS: BUSPAR PO SCH ×2 (10:00→21:00)
[2019-06-14] MEDS: HumaLOG SUB-Q SCH ×4 (10:10→23:27)
[2019-06-14] MEDS: SODIUM CHLORIDE FLUSH SYRINGE 10 ML IV SCH ×2 (10:10→21:06)
[2019-06-14] MEDS: OxyCONTIN PO SCH ×2 (10:10→21:05)
[2019-06-14] MEDS: NEURONTIN PO SCH ×2 (10:15→21:02)
--- NOTE | 2019-06-14 14:06 | Progress Note ---
Assessment and Plan Assessment and plan: 39F with hx of multiple falls and fractures in the past who presents sp fall with pain in LUE and LLE - Left hip fracture/left shoulder fracture - pain meds, ortho consult, sp surgery on 06/07 - cont PT Severe anemia -Hemoglobin yesterday was 6.6, transfused 2 units of blood, monitor H&H. P osttransfusion hemoglobin this morning was 9.6 Swelling of left upper extremity - Doppler ultrasound was done and showed no acute DVT or arterial occlusion PNA -has completed abx hx of LE dvt restart xarelto when safe to do so after surgery will held DM cont ssi FTT -unable to care for self, will need PT consult after sx -has had multiple surgeries and falls, CM mgt consult and may need placement Morbid obesity, with protein malnutrition head of precision targeting consult Opioid dependence, chronic pain syndrome fups at pain clinic at [place] -optimize pain meds -preventative health counseling done for 17 minutes -tobacco abuse, counseling done for 10 minutes aocd sp 2 units, improved, tsh wnl amenorrhea fup LH and FSH, 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 History Interval history: Patient was seen and evaluated this morning. She is c/o of generalized pain. Hospitalist Physical - Physical exam Narrative exam: Not in cardiopulmonary distress. The patient appeared well nourished and normally developed. Vital signs as documented. Head exam is unremarkable. No scleral icterus . Neck is without jugular venous distension, thyromegaly, or carotid bruits. Lungs are clear to auscultation. Cardiac exam reveals regular rate and Rhythm. Abdominal exam reveals normal bowel sounds. Extremities swelling of the left hand. 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 - Constitutional Vitals: Temp Pulse Resp BP Pulse Ox 97.4 F L 89 17 139/88 97 06/14/19 08:26 06/14/19 08:26 06/14/19 08:26 06/14/19 08:26 06/14/19 08:26 General appearance: Present: mild distress, cachectic, disheveled Results - Labs CBC & Chem 7: 06/14/19 09:20 06/13/19 07:35 Labs: Laboratory Last Values WBC 4.1 K/mm3 (4.5-11.0) L 06/14/19 09:20 RBC 3.51 M/mm3 (3.65-5.03) L 06/14/19 09:20 Hgb 9.8 gm/dl (10.1-14.3) L D 06/14/19 09:20 Hct 30.8 % (30.3-42.9) D 06/14/19 09:20 MCV 88 fl (79-97) 06/14/19 09:20 MCH 28 pg (28-32) 06/14/19 09:20 MCHC 32 % (30-34) 06/14/19 09:20 RDW 17.3 % (13.2-15.2) H 06/14/19 09:20 Plt Count 215 K/mm3 (140-440) 06/14/19 09:20 Lymph % (Auto) 17.6 % (13.4-35.0) 06/14/19 09:20 [place] % (Auto) 9.2 % (0.0-7.3) H 06/14/19 09:20 Eos % (Auto) 0.5 % (0.0-4.3) 06/14/19 09:20 Baso % (Auto) 0.2 % (0.0-1.8) 06/14/19 09:20 Lymph # 0.7 K/mm3 (1.2-5.4) L 06/14/19 09:20 [place] # 0.4 K/mm3 (0.0-0.8) 06/14/19 09:20 Eos # 0.0 K/mm3 (0.0-0.4) 06/14/19 09:20 Baso # 0.0 K/mm3 (0.0-0.1) 06/14/19 09:20 Seg Neutrophils % 72.5 % (40.0-70.0) H 06/14/19 09:20 Seg Neutrophils # 3.0 K/mm3 (1.8-7.7) 06/14/19 09:20 PT 18.0 Sec. (12.2-14.9) H 06/05/19 00:24 INR 1.53 (0.87-1.13) H 06/05/19 00:24 APTT 35.5 Sec. (24.2-36.6) 06/05/19 00:24 Sodium 138 mmol/L (137-145) 06/13/19 07:35 Potassium 4.4 mmol/L (3.6-5.0) 06/13/19 07:35 Chloride 99.0 mmol/L (98-107) 06/13/19 07:35 Carbon Dioxide 31 mmol/L (22-30) H 06/13/19 07:35 12 mmol/L 06/13/19 07:35 BUN 11 mg/dL (7-17) 06/13/19 07:35 0.3 mg/dL (0.7-1.2) L 06/13/19 07:35 Estimated GFR > 60 ml/min 06/13/19 07:35 37 % 06/13/19 07:35 Glucose 359 mg/dL (65-100) H 06/13/19 07:35 POC Glucose 321 (70-105) H 06/14/19 12:53 10.9 % (4-6) H 06/05/19 00:26 Lactic Acid 2.60 mmol/L (0.7-2.0) H* 06/05/19 12:32 Calcium 7.8 mg/dL (8.4-10.2) L 06/13/19 07:35 Magnesium 1.70 mg/dL (1.7-2.3) 06/05/19 00:24 0.20 mg/dL (0.1-1.2) 06/05/19 00:24 AST 11 units/L (5-40) 06/05/19 00:24 ALT 14 units/L (7-56) 06/05/19 00:24 158 units/L (35-129) H 06/05/19 00:24 30 units/L (30-135) 06/05/19 00:24 4.7 g/dL (6.3-8.2) L 06/05/19 00:24 2.3 g/dL (3.9-5) L 06/05/19 00:24 1.0 % 06/05/19 00:24 TSH 2.490 mlU/mL (0.270-4.200) 06/06/19 17:13 FSH 5.5 mIU/mL () 06/06/19 17:13 HCG, Quant 1.37 mIU/mL (0-4) 06/05/19 00:24 Yellow (Yellow) 06/04/19 Unknown Clear (Clear) 06/04/19 Unknown 7.0 (5.0-7.0) 06/04/19 Unknown Ur Specific [place] 1.012 (1.003-1.030) 06/04/19 Unknown 30 mg/dl mg/dL (Negative) 06/04/19 Unknown Trace mg/dL (Negative) 06/04/19 Unknown Negative mg/dL (Negative) 06/04/19 Unknown Negative (Negative) 06/04/19 Unknown Negative (Negative) 06/04/19 Unknown Ur Reducing Substances Not Reportable 06/04/19 Unknown Negative (Negative) 06/04/19 Unknown Not Reportable 06/04/19 Unknown 0.0 mg/dL (<2.0) 06/04/19 Unknown Ur Leukocyte Esterase Negative (Negative) 06/04/19 Unknown 1.0 /HPF (0.0-6.0) 06/04/19 Unknown 1.0 /HPF (0.0-6.0) 06/04/19 Unknown Few /HPF 06/04/19 Unknown Salicylates 0.3 mg/dL (2.8-20.0) L 06/05/19 00:24 Acetaminophen 5.0 ug/mL (10.0-30.0) L 06/05/19 00:24 Plasma/Serum Alcohol 0.01 % (0-0.07) 06/05/19 00:24 Blood Type O POSITIVE 06/13/19 10:11 Antibody Screen Negative 06/13/19 10:11 Crossmatch See Detail 06/13/19 10:11 Active Medications - Current Medications Current Medications: Generic Name Dose Route Start Last Admin Trade Name Freq PRN Reason Stop Dose Admin Acetaminophen 650 mg 06/05/19 08:30 06/08/19 04:00 Tylenol PO 650 mg Q4H PRN Administration Pain MILD(1-3)/Fever >100.5/ROQUE Alprazolam 2 mg 06/10/19 14:15 06/14/19 10:00 Xanax PO Not Given BID JERMAN Buspirone HCl 7.5 mg 06/05/19 22:00 06/13/19 22:27 Buspar PO 7.5 mg BID JERMAN Administration Dextrose 50 gm 06/04/19 23:21 06/07/19 17:12 D50w (25gm) Vial IV 6.25 gm PRN PRN Administration Hypoglycemia Diphenhydramine HCl 25 mg 06/08/19 13:01 06/11/19 19:01 Benadryl PO 25 mg Q6H PRN Administration Itching Enoxaparin Sodium 40 mg 06/05/19 22:00 06/13/19 22:30 Lovenox SUB-Q 40 mg QDAY@2200 JERMAN Administration Gabapentin 300 mg 06/05/19 10:00 06/14/19 10:15 Neurontin PO 300 mg BID JERMAN Administration Insulin Human Lispro 0 unit 06/06/19 16:30 06/14/19 12:50 Humalog SUB-Q 3 unit AC JERMAN Administration Protocol Metformin HCl 500 mg 06/11/19 10:00 06/14/19 08:20 Glucophage Xr PO 500 mg QDDIAB JERMAN Administration Ondansetron HCl 4 mg 06/05/19 08:30 Zofran IV Q8H PRN Nausea And Vomiting Oxycodone HCl 10 mg 06/05/19 16:39 06/14/19 12:42 Roxicodone PO 10 mg Q4H PRN Administration Pain, Moderate (4-6) Oxycodone HCl 10 mg 06/10/19 14:00 06/13/19 22:27 Oxycontin PO 10 mg Q12HR JERMAN Administration Sodium Chloride 10 ml 06/05/19 10:00 06/13/19 22:30 Sodium Chloride Flush Syringe 10 Ml IV 10 ml BID JERMAN Administration Sodium Chloride 10 ml 06/05/19 08:30 06/06/19 04:37 Sodium Chloride Flush Syringe 10 Ml IV 10 ml PRN PRN Administration LINE FLUSH Venlafaxine HCl 75 mg 06/05/19 11:00 06/14/19 10:00 Effexor Xr PO Not Given QDAY [facility] Nutrition/Malnutrition Assess - Dietary Evaluation Nutrition/Malnutrition Findings: Nutrition Notes Start: 06/05/19 13:42 Freq: Status: Active Protocol: Document 06/11/19 16:11 OH (Rec: 06/11/19 16:17 OH [id number]) Nutrition Notes Initial or Follow up Reassessment Other Pertinent Diagnosis Pancreatitis,Hx gastric bypass ,PNA,Opiod dependence Current Diet Consistent CHO Labs/Tests Reviewed Pertinent Medications Reviewed Height 5 ft 5 in Weight 142 kg [place] Body Weight (kg) 56.81 BMI 52.0 Subjective/Other Information Pt. sitting up in bed eating demarco crackers. Pt. discussing with nurse upon my arrival regarding next time she could receive her pain medication. RN educating patient that she was just provided pain medication and next dose was at noon. Pt. reports she prepares meals at home. She has 4 children who live with her at an extended stay hotel. Per pt she has a PCP who oversees her diabetes managment. Pt. also has pain management MD. Percent of energy/protein needs met: <50/50% Burn Absent Trauma Absent #1 Nutrition Diagnosis Inadequate oral intake Is patient on ventilator? No Is Patient Ambulatory and/or Out of Bed No REE-([facility]-confined to bed) 2517.096 Kcal/Kg value to use for calculation 14 Approximate Energy Requirements Using 1988 kcal/Kg Calculation Used for Recommendations Kcal/kg Additional Notes Protein Needs: 119-149g (1.2-1 .5g/kg 99 kg adjBW) Fluid Needs: 1ml/kcal Nutrition Intervention Change Diet Order: Cont consistent CHO Add Supplement/Snack (indicate name/kcal Glucerna 1 daily /protein ) Provides kCal: 220 Provides Protein (gm) 10 Goal #1 Meet at least 75% of calorie and protein needs via PO and ONS intakes Anticipated Discharge Needs: Consistent CHO diet Follow-Up By: 06/15/19 Additional Comments Follow for PO and ONS intakes, DM diet education
[2019-06-14] MEDS: LOVENOX SUB-Q SCH (21:00)
[2019-06-14] MEDS ORDERED: D50W (25GM) Syringe IV PRN (22:52)
[2019-06-15] MEDS: ROXICODONE PO PRN ×4 (04:28→18:38)
[2019-06-15 08:10] LABS: Hematocrit 30.5 % (30.3-42.9); Hemoglobin 9.8 gm/dl (10.1-14.3)
[2019-06-15] MEDS: NEURONTIN PO SCH ×2 (09:17→21:00)
[2019-06-15] MEDS: GLUCOPHAGE XR PO SCH (09:18)
[2019-06-15] MEDS: BUSPAR PO SCH ×3 (09:18→21:01)
[2019-06-15] MEDS: HumaLOG SUB-Q SCH ×3 (09:18→16:50)
[2019-06-15] MEDS: EFFEXOR XR PO SCH (09:19)
[2019-06-15] MEDS: XANAX PO SCH ×2 (09:29→21:01)
[2019-06-15] MEDS: OxyCONTIN PO SCH ×3 (10:00→21:08)
[2019-06-15] MEDS: VANCOMYCIN PO PO SCH ×2 (12:10→18:00)
--- NOTE | 2019-06-15 13:33 | Progress Note ---
Assessment and Plan Assessment and plan: 39F with hx of multiple falls and fractures in the past who presents sp fall with pain in LUE and LLE - Left hip fracture/left shoulder fracture - pain meds, ortho consult, sp surgery on 06/07 - cont PT Diarrhea - patient had history of c.diff x 2 before - C. 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 History Interval history: Patient was seen and evaluated this morning. She is c/o diarrheal episodes overnight 4x. Hospitalist Physical - Physical exam Narrative exam: Not in cardiopulmonary distress. The patient appeared well nourished and normally developed. Vital signs as documented. Head exam is unremarkable. No scleral icterus . Neck is without jugular venous distension, thyromegaly, or carotid bruits. Lungs are clear to auscultation. Cardiac exam reveals regular rate and Rhythm. Abdominal exam reveals normal bowel sounds. Extremities swelling of the left hand. 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 - Constitutional Vitals: Temp Pulse Resp BP Pulse Ox 98.3 F 78 18 135/85 99 06/15/19 07:50 06/15/19 07:48 06/15/19 07:50 06/15/19 07:48 06/15/19 07:48 General appearance: Present: mild distress, cachectic, disheveled Results - Labs CBC & Chem 7: 06/15/19 07:56 06/13/19 07:35 Labs: Laboratory Last Values WBC 4.1 K/mm3 (4.5-11.0) L 06/14/19 09:20 RBC 3.51 M/mm3 (3.65-5.03) L 06/14/19 09:20 Hgb 9.8 gm/dl (10.1-14.3) L 06/15/19 07:56 Hct 30.5 % (30.3-42.9) 06/15/19 07:56 MCV 88 fl (79-97) 06/14/19 09:20 MCH 28 pg (28-32) 06/14/19 09:20 MCHC 32 % (30-34) 06/14/19 09:20 RDW 17.3 % (13.2-15.2) H 06/14/19 09:20 Plt Count 215 K/mm3 (140-440) 06/14/19 09:20 Lymph % (Auto) 17.6 % (13.4-35.0) 06/14/19 09:20 [place] % (Auto) 9.2 % (0.0-7.3) H 06/14/19 09:20 Eos % (Auto) 0.5 % (0.0-4.3) 06/14/19 09:20 Baso % (Auto) 0.2 % (0.0-1.8) 06/14/19 09:20 Lymph # 0.7 K/mm3 (1.2-5.4) L 06/14/19 09:20 [place] # 0.4 K/mm3 (0.0-0.8) 06/14/19 09:20 Eos # 0.0 K/mm3 (0.0-0.4) 06/14/19 09:20 Baso # 0.0 K/mm3 (0.0-0.1) 06/14/19 09:20 Seg Neutrophils % 72.5 % (40.0-70.0) H 06/14/19 09:20 Seg Neutrophils # 3.0 K/mm3 (1.8-7.7) 06/14/19 09:20 PT 18.0 Sec. (12.2-14.9) H 06/05/19 00:24 INR 1.53 (0.87-1.13) H 06/05/19 00:24 APTT 35.5 Sec. (24.2-36.6) 06/05/19 00:24 Sodium 138 mmol/L (137-145) 06/13/19 07:35 Potassium 4.4 mmol/L (3.6-5.0) 06/13/19 07:35 Chloride 99.0 mmol/L (98-107) 06/13/19 07:35 Carbon Dioxide 31 mmol/L (22-30) H 06/13/19 07:35 12 mmol/L 06/13/19 07:35 BUN 11 mg/dL (7-17) 06/13/19 07:35 0.3 mg/dL (0.7-1.2) L 06/13/19 07:35 Estimated GFR > 60 ml/min 06/13/19 07:35 37 % 06/13/19 07:35 Glucose 359 mg/dL (65-100) H 06/13/19 07:35 POC Glucose 332 (70-105) H 06/15/19 12:21 10.9 % (4-6) H 06/05/19 00:26 Lactic Acid 2.60 mmol/L (0.7-2.0) H* 06/05/19 12:32 Calcium 7.8 mg/dL (8.4-10.2) L 06/13/19 07:35 Magnesium 1.70 mg/dL (1.7-2.3) 06/05/19 00:24 0.20 mg/dL (0.1-1.2) 06/05/19 00:24 AST 11 units/L (5-40) 06/05/19 00:24 ALT 14 units/L (7-56) 06/05/19 00:24 158 units/L (35-129) H 06/05/19 00:24 30 units/L (30-135) 06/05/19 00:24 4.7 g/dL (6.3-8.2) L 06/05/19 00:24 2.3 g/dL (3.9-5) L 06/05/19 00:24 1.0 % 06/05/19 00:24 TSH 2.490 mlU/mL (0.270-4.200) 06/06/19 17:13 FSH 5.5 mIU/mL () 06/06/19 17:13 HCG, Quant 1.37 mIU/mL (0-4) 06/05/19 00:24 Yellow (Yellow) 06/04/19 Unknown Clear (Clear) 06/04/19 Unknown 7.0 (5.0-7.0) 06/04/19 Unknown Ur Specific [place] 1.012 (1.003-1.030) 06/04/19 Unknown 30 mg/dl mg/dL (Negative) 06/04/19 Unknown Trace mg/dL (Negative) 06/04/19 Unknown Negative mg/dL (Negative) 06/04/19 Unknown Negative (Negative) 06/04/19 Unknown Negative (Negative) 06/04/19 Unknown Ur Reducing Substances Not Reportable 06/04/19 Unknown Negative (Negative) 06/04/19 Unknown Not Reportable 06/04/19 Unknown 0.0 mg/dL (<2.0) 06/04/19 Unknown Ur Leukocyte Esterase Negative (Negative) 06/04/19 Unknown 1.0 /HPF (0.0-6.0) 06/04/19 Unknown 1.0 /HPF (0.0-6.0) 06/04/19 Unknown Few /HPF 06/04/19 Unknown Salicylates 0.3 mg/dL (2.8-20.0) L 06/05/19 00:24 Acetaminophen 5.0 ug/mL (10.0-30.0) L 06/05/19 00:24 Plasma/Serum Alcohol 0.01 % (0-0.07) 06/05/19 00:24 Blood Type O POSITIVE 06/13/19 10:11 Antibody Screen Negative 06/13/19 10:11 Crossmatch See Detail 06/13/19 10:11 Active Medications - Current Medications Current Medications: Generic Name Dose Route Start Last Admin Trade Name Freq PRN Reason Stop Dose Admin Acetaminophen 650 mg 06/05/19 08:30 06/08/19 04:00 Tylenol PO 650 mg Q4H PRN Administration Pain MILD(1-3)/Fever >100.5/ROQUE Alprazolam 2 mg 06/10/19 14:15 06/15/19 09:29 Xanax PO 2 mg BID JERMAN Administration Buspirone HCl 7.5 mg 06/05/19 22:00 06/15/19 09:31 Buspar PO Not Given BID JERMAN Dextrose 50 gm 06/04/19 23:21 06/07/19 17:12 D50w (25gm) Vial IV 6.25 gm PRN PRN Administration Hypoglycemia Diphenhydramine HCl 25 mg 06/08/19 13:01 06/11/19 19:01 Benadryl PO 25 mg Q6H PRN Administration Itching Enoxaparin Sodium 40 mg 06/05/19 22:00 06/14/19 21:00 Lovenox SUB-Q 40 mg QDAY@2200 JERMAN Administration Gabapentin 300 mg 06/05/19 10:00 06/15/19 09:17 Neurontin PO 300 mg BID JERMAN Administration Insulin Human Lispro 0 unit 06/14/19 23:30 06/15/19 13:24 Humalog SUB-Q 6 unit ACHS JERMAN Administration Protocol Metformin HCl 500 mg 06/11/19 10:00 06/15/19 09:18 Glucophage Xr PO 500 mg QDDIAB JERMAN Administration Ondansetron HCl 4 mg 06/05/19 08:30 Zofran IV Q8H PRN Nausea And Vomiting Oxycodone HCl 10 mg 06/05/19 16:39 06/15/19 13:23 Roxicodone PO 10 mg Q4H PRN Administration Pain, Moderate (4-6) Oxycodone HCl 10 mg 06/10/19 14:00 06/14/19 21:05 Oxycontin PO Not Given Q12HR JERMAN Sodium Chloride 10 ml 06/05/19 10:00 06/14/19 21:06 Sodium Chloride Flush Syringe 10 Ml IV 10 ml BID JERMAN Administration Sodium Chloride 10 ml 06/05/19 08:30 06/06/19 04:37 Sodium Chloride Flush Syringe 10 Ml IV 10 ml PRN PRN Administration LINE FLUSH Vancomycin HCl 125 mg 06/15/19 12:00 Vancomycin Po PO Q6HR JERMAN Venlafaxine HCl 75 mg 06/05/19 11:00 06/15/19 09:19 Effexor Xr PO 75 mg QDAY JERMAN Administration Nutrition/Malnutrition Assess - Dietary Evaluation Nutrition/Malnutrition Findings: Nutrition Notes Start: 06/05/19 13:42 Freq: Status: Active Protocol: Document 06/11/19 16:11 OH (Rec: 06/11/19 16:17 OH [id number]) Nutrition Notes Initial or Follow up Reassessment Other Pertinent Diagnosis Pancreatitis,Hx gastric bypass ,PNA,Opiod dependence Current Diet Consistent CHO Labs/Tests Reviewed Pertinent Medications Reviewed Height 5 ft 5 in Weight 142 kg [place] Body Weight (kg) 56.81 BMI 52.0 Subjective/Other Information Pt. sitting up in bed eating demarco crackers. Pt. discussing with nurse upon my arrival regarding next time she could receive her pain medication. RN educating patient that she was just provided pain medication and next dose was at noon. Pt. reports she prepares meals at home. She has 4 children who live with her at an extended stay hotel. Per pt she has a PCP who oversees her diabetes managment. Pt. also has pain management MD. Percent of energy/protein needs met: <50/50% Burn Absent Trauma Absent #1 Nutrition Diagnosis Inadequate oral intake Is patient on ventilator? No Is Patient Ambulatory and/or Out of Bed No REE-([facility]-confined to bed) 4067.096 Kcal/Kg value to use for calculation 14 Approximate Energy Requirements Using 1988 kcal/Kg Calculation Used for Recommendations Kcal/kg Additional Notes Protein Needs: 119-149g (1.2-1 .5g/kg 99 kg adjBW) Fluid Needs: 1ml/kcal Nutrition Intervention Change Diet Order: Cont consistent CHO Add Supplement/Snack (indicate name/kcal Glucerna 1 daily /protein ) Provides kCal: 220 Provides Protein (gm) 10 Goal #1 Meet at least 75% of calorie and protein needs via PO and ONS intakes Anticipated Discharge Needs: Consistent CHO diet Follow-Up By: 06/15/19 Additional Comments Follow for PO and ONS intakes, DM diet education
[2019-06-15] MEDS: SODIUM CHLORIDE FLUSH SYRINGE 10 ML IV SCH (21:02)
[2019-06-15] MEDS: LOVENOX SUB-Q SCH (22:15)
[2019-06-16] MEDS: HumaLOG SUB-Q SCH ×10 (01:14→22:00)
[2019-06-16] MEDS: SODIUM CHLORIDE FLUSH SYRINGE 10 ML IV SCH ×3 (01:16→21:59)
[2019-06-16] MEDS: ROXICODONE PO PRN ×6 (01:16→21:58)
[2019-06-16] MEDS: VANCOMYCIN PO PO SCH ×4 (01:27→17:16)
[2019-06-16 05:18] LABS: Basophils % (Auto) 0.4 % (0.0-1.8); Eosinophils # (Auto) 0.1 K/mm3 (0.0-0.4); Eosinophils % (Auto) 1.8 % (0.0-4.3); Hematocrit 29.6 % (30.3-42.9); Hemoglobin 9.6 gm/dl (10.1-14.3); Lymphocytes # (Auto) 1.2 K/mm3 (1.2-5.4); Lymphocytes % (Auto) 30.4 % (13.4-35.0); Mean Corpuscular HGB Conc 32 % (30-34); Mean Corpuscular Volume 89 fl (79-97); Monocytes # (Auto) 0.4 K/mm3 (0.0-0.8); Monocytes % (Auto) 10.4 % (0.0-7.3); Platelet Count 261 K/mm3 (140-440); Red Blood Count 3.34 M/mm3 (3.65-5.03); Red Cell Distribution Width 17.5 % (13.2-15.2)
[2019-06-16 05:20] LABS: BUN/Creatinine Ratio 43; Blood Urea Nitrogen 17 mg/dL (7-17); Calcium 8.2 mg/dL (8.4-10.2); Hemolysis Index 15
[2019-06-16] MEDS ORDERED: LANTUS SUB-Q ONE (09:00)
[2019-06-16] MEDS: BUSPAR PO SCH ×2 (10:30→21:59)
[2019-06-16] MEDS: NEURONTIN PO SCH ×2 (10:30→21:58)
[2019-06-16] MEDS: OxyCONTIN PO SCH ×3 (10:31→22:00)
[2019-06-16] MEDS: EFFEXOR XR PO SCH (10:31)
[2019-06-16] MEDS: XANAX PO SCH ×2 (10:31→21:58)
--- NOTE | 2019-06-16 13:50 | Progress Note ---
Assessment and Plan Assessment and plan: 39F with hx of multiple falls and fractures in the past who presents sp fall with pain in LUE and LLE - Left hip fracture/left shoulder fracture - pain meds, ortho consult, sp surgery on 06/07 - cont PT Diarrhea - patient had history of c.diff x 2 before - C. diff ordered and patient started empirically on Po vancomycin - ID consulted for c.diff because lab said need special authorization Severe anemia - transfused 2 units - H/H stable Swelling of left upper extremity - Doppler ultrasound was done and showed no acute DVT or arterial occlusion PNA -has completed abx hx of LE dvt restart xarelto when safe to do so after surgery will held DM uncontrolled - cont ssi, on 10 units of humalog ACHS - started on basal insulin - blood sugar is very high FTT -unable to care for self, will need PT consult after sx -has had multiple surgeries and falls, CM mgt consult and may need placement Morbid obesity, with protein malnutrition 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 History Interval history: Patient was seen and evaluated this morning. She is c/o diarrheal episodes overn ight 4x. Patient's blood sugar is uncontrolled. Hospitalist Physical - Physical exam Narrative exam: Not in cardiopulmonary distress. The patient appeared well nourished and normally developed. Vital signs as documented. Head exam is unremarkable. No scleral icterus . Neck is without jugular venous distension, thyromegaly, or carotid bruits. Lungs are clear to auscultation. Cardiac exam reveals regular rate and Rhythm. Abdominal exam reveals normal bowel sounds. Extremities swelling of the left hand. 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 - Constitutional Vitals: Temp Pulse Resp BP Pulse Ox 98.6 F 74 18 106/69 98 06/16/19 12:22 06/16/19 12:22 06/16/19 12:22 06/16/19 12:22 06/16/19 12:22 General appearance: Present: mild distress, cachectic, disheveled Results - Labs CBC & Chem 7: 06/16/19 04:14 08/17/19 04:14 Labs: Laboratory Last Values WBC 3.9 K/mm3 (4.5-11.0) L 06/16/19 04:14 RBC 3.34 M/mm3 (3.65-5.03) L 06/16/19 04:14 Hgb 9.6 gm/dl (10.1-14.3) L 06/16/19 04:14 Hct 29.6 % (30.3-42.9) L 06/16/19 04:14 MCV 89 fl (79-97) 06/16/19 04:14 MCH 29 pg (28-32) 06/16/19 04:14 MCHC 32 % (30-34) 06/16/19 04:14 RDW 17.5 % (13.2-15.2) H 06/16/19 04:14 Plt Count 261 K/mm3 (140-440) 06/16/19 04:14 Lymph % (Auto) 30.4 % (13.4-35.0) 06/16/19 04:14 [place] % (Auto) 10.4 % (0.0-7.3) H 06/16/19 04:14 Eos % (Auto) 1.8 % (0.0-4.3) 06/16/19 04:14 Baso % (Auto) 0.4 % (0.0-1.8) 06/16/19 04:14 Lymph # 1.2 K/mm3 (1.2-5.4) 06/16/19 04:14 [place] # 0.4 K/mm3 (0.0-0.8) 06/16/19 04:14 Eos # 0.1 K/mm3 (0.0-0.4) 06/16/19 04:14 Baso # 0.0 K/mm3 (0.0-0.1) 06/16/19 04:14 Seg Neutrophils % 57.0 % (40.0-70.0) 06/16/19 04:14 Seg Neutrophils # 2.2 K/mm3 (1.8-7.7) 06/16/19 04:14 PT 18.0 Sec. (12.2-14.9) H 06/05/19 00:24 INR 1.53 (0.87-1.13) H 06/05/19 00:24 APTT 35.5 Sec. (24.2-36.6) 06/05/19 00:24 Sodium 140 mmol/L (137-145) 06/16/19 04:14 Potassium 4.3 mmol/L (3.6-5.0) 06/16/19 04:14 Chloride 102.3 mmol/L (98-107) 06/16/19 04:14 Carbon Dioxide 30 mmol/L (22-30) 06/16/19 04:14 12 mmol/L 06/16/19 04:14 BUN 17 mg/dL (7-17) 06/16/19 04:14 0.4 mg/dL (0.7-1.2) L 06/16/19 04:14 Estimated GFR > 60 ml/min 06/16/19 04:14 43 % 06/16/19 04:14 Glucose 296 mg/dL (65-100) H 06/16/19 04:14 POC Glucose 436 (70-105) H 06/16/19 12:09 10.9 % (4-6) H 06/05/19 00:26 Lactic Acid 2.60 mmol/L (0.7-2.0) H* 06/05/19 12:32 Calcium 8.2 mg/dL (8.4-10.2) L 06/16/19 04:14 Magnesium 1.70 mg/dL (1.7-2.3) 06/05/19 00:24 0.20 mg/dL (0.1-1.2) 06/05/19 00:24 AST 11 units/L (5-40) 06/05/19 00:24 ALT 14 units/L (7-56) 06/05/19 00:24 158 units/L (35-129) H 06/05/19 00:24 30 units/L (30-135) 06/05/19 00:24 4.7 g/dL (6.3-8.2) L 06/05/19 00:24 2.3 g/dL (3.9-5) L 06/05/19 00:24 1.0 % 06/05/19 00:24 TSH 2.490 mlU/mL (0.270-4.200) 06/06/19 17:13 FSH 5.5 mIU/mL () 06/06/19 17:13 HCG, Quant 1.37 mIU/mL (0-4) 06/05/19 00:24 Yellow (Yellow) 06/04/19 Unknown Clear (Clear) 06/04/19 Unknown 7.0 (5.0-7.0) 06/04/19 Unknown Ur Specific [place] 1.012 (1.003-1.030) 06/04/19 Unknown 30 mg/dl mg/dL (Negative) 06/04/19 Unknown Trace mg/dL (Negative) 06/04/19 Unknown Negative mg/dL (Negative) 06/04/19 Unknown Negative (Negative) 06/04/19 Unknown Negative (Negative) 06/04/19 Unknown Ur Reducing Substances Not Reportable 06/04/19 Unknown Negative (Negative) 06/04/19 Unknown Not Reportable 06/04/19 Unknown 0.0 mg/dL (<2.0) 06/04/19 Unknown Ur Leukocyte Esterase Negative (Negative) 06/04/19 Unknown 1.0 /HPF (0.0-6.0) 06/04/19 Unknown 1.0 /HPF (0.0-6.0) 06/04/19 Unknown Few /HPF 06/04/19 Unknown Salicylates 0.3 mg/dL (2.8-20.0) L 06/05/19 00:24 Acetaminophen 5.0 ug/mL (10.0-30.0) L 06/05/19 00:24 Plasma/Serum Alcohol 0.01 % (0-0.07) 06/05/19 00:24 Blood Type O POSITIVE 06/13/19 10:11 Antibody Screen Negative 06/13/19 10:11 Crossmatch See Detail 06/13/19 10:11 Active Medications - Current Medications Current Medications: Generic Name Dose Route Start Last Admin Trade Name Freq PRN Reason Stop Dose Admin Acetaminophen 650 mg 06/05/19 08:30 06/08/19 04:00 Tylenol PO 650 mg Q4H PRN Administration Pain MILD(1-3)/Fever >100.5/ROQUE Alprazolam 2 mg 06/10/19 14:15 06/16/19 10:31 Xanax PO 2 mg BID JERMAN Administration Buspirone HCl 7.5 mg 06/05/19 22:00 06/16/19 10:30 Buspar PO 7.5 mg BID JERMAN Administration Dextrose 50 gm 06/04/19 23:21 06/07/19 17:12 D50w (25gm) Vial IV 6.25 gm PRN PRN Administration Hypoglycemia Diphenhydramine HCl 25 mg 06/08/19 13:01 06/11/19 19:01 Benadryl PO 25 mg Q6H PRN Administration Itching Enoxaparin Sodium 40 mg 06/05/19 22:00 06/15/19 22:15 Lovenox SUB-Q 40 mg QDAY@2200 JERMAN Administration Gabapentin 300 mg 06/05/19 10:00 06/16/19 10:30 Neurontin PO 300 mg BID JERMAN Administration Insulin Glargine 10 units 06/16/19 22:00 Lantus SUB-Q QHS JERMAN Insulin Human Lispro 0 unit 06/14/19 23:30 06/16/19 12:54 Humalog SUB-Q 10 unit [facility] Administration Protocol Insulin Human Lispro 10 unit 06/16/19 11:30 06/16/19 10:28 Humalog SUB-Q 10 unit [facility] Administration Ondansetron HCl 4 mg 06/05/19 08:30 Zofran IV Q8H PRN Nausea And Vomiting Oxycodone HCl 10 mg 06/05/19 16:39 06/16/19 10:39 Roxicodone PO 10 mg Q4H PRN Administration Pain, Moderate (4-6) Oxycodone HCl 10 mg 06/10/19 14:00 06/16/19 10:42 Oxycontin PO Not Given Q12HR JERMAN Sodium Chloride 10 ml 06/05/19 10:00 06/16/19 11:29 Sodium Chloride Flush Syringe 10 Ml IV 10 ml BID JERMAN Administration Sodium Chloride 10 ml 06/05/19 08:30 06/06/19 04:37 Sodium Chloride Flush Syringe 10 Ml IV 10 ml PRN PRN Administration LINE FLUSH Vancomycin HCl 125 mg 06/15/19 12:00 06/16/19 12:43 Vancomycin Po PO 125 mg Q6HR JERMAN Administration Venlafaxine HCl 75 mg 06/05/19 11:00 06/16/19 10:31 Effexor Xr PO 75 mg QDAY JERMAN Administration Nutrition/Malnutrition Assess - Dietary Evaluation Nutrition/Malnutrition Findings: Nutrition Notes Start: 06/05/19 13:42 Freq: Status: Active Protocol: Document 06/15/19 16:59 RM (Rec: 06/15/19 17:14 RM [id number]) Nutrition Notes Initial or Follow up Reassessment Current Diagnosis Diabetes Other Pertinent Diagnosis FTT, L arm wound, Pancreatitis ,Hx gastric bypass,PNA,Opiod dependence Current Diet Consistent CHO w/Glucerna 1 daily Labs/Tests Reviewed Pertinent Medications Reviewed Height 5 ft 5 in Weight 142 kg [place] Body Weight (kg) 56.81 BMI 52.0 Subjective/Other Information Pt stated that she eats bites of her meals and does not drink the Glucerna d/t similarity to milk. However nurse stated that pt eats all of her meals. Nurse confirmed that pt does not drink the Glucerna. Percent of energy/protein needs met: 100%/76% Burn Absent Trauma Absent #1 Nutrition Diagnosis Inadequate oral intake As Evidenced by Signs and Symptoms pt meeting 100% of calorie and 76% of protein needs Diagnosis Progress(for reassessment Resolved documentation) Is patient on ventilator? No Is Patient Ambulatory and/or Out of Bed No REE-([facility]-confined to bed) 2517.096 Kcal/Kg value to use for calculation 14 Approximate Energy Requirements Using 1988 kcal/Kg Calculation Used for Recommendations Kcal/kg Additional Notes Protein Needs: 119-149g (1.2-1 .5g/kg 99 kg adjBW) Fluid Needs: 1ml/kcal Nutrition Intervention Change Diet Order: Cont consistent CHO Add Supplement/Snack (indicate name/kcal D/C Glucerna. Add Reese BID /protein ) Provides kCal: 190 Provides Protein (gm) 5 Goal #1 Continue to meet at least 75% of calorie and protein needs Goal #2 Reese intake Anticipated Discharge Needs: Consistent CHO diet Follow-Up By: 06/20/19 Additional Comments Follow for PO and Erese intakes
[2019-06-16] MEDS: GLUCOPHAGE XR PO SCH (20:16)
[2019-06-16] MEDS: LOVENOX SUB-Q SCH (21:58)
[2019-06-16] MEDS: LANTUS SUB-Q SCH (22:00)
[2019-06-17] MEDS: VANCOMYCIN PO PO SCH ×4 (00:39→18:08)
[2019-06-17] MEDS: ROXICODONE PO PRN ×4 (06:43→20:00)
[2019-06-17 07:30] LABS: Basophils % (Auto) 0.5 % (0.0-1.8); Eosinophils # (Auto) 0.1 K/mm3 (0.0-0.4); Eosinophils % (Auto) 1.5 % (0.0-4.3); Hematocrit 34.3 % (30.3-42.9); Lymphocytes # (Auto) 1.6 K/mm3 (1.2-5.4); Lymphocytes % (Auto) 36.7 % (13.4-35.0); Mean Corpuscular HGB Conc 32 % (30-34); Mean Corpuscular Volume 89 fl (79-97); Monocytes # (Auto) 0.3 K/mm3 (0.0-0.8); Monocytes % (Auto) 5.9 % (0.0-7.3); Platelet Count 295 K/mm3 (140-440); Red Blood Count 3.86 M/mm3 (3.65-5.03); Red Cell Distribution Width 18.5 % (13.2-15.2)
[2019-06-17 07:51] LABS: BUN/Creatinine Ratio 35; Blood Urea Nitrogen 14 mg/dL (7-17); Calcium 8.3 mg/dL (8.4-10.2); Hemolysis Index 7
[2019-06-17] MEDS: HumaLOG SUB-Q SCH ×7 (08:35→22:12)
[2019-06-17] MEDS: EFFEXOR XR PO SCH (10:01)
[2019-06-17] MEDS: BUSPAR PO SCH ×2 (10:01→22:12)
[2019-06-17] MEDS: NEURONTIN PO SCH ×2 (10:01→22:13)
[2019-06-17] MEDS: XANAX PO SCH ×2 (10:01→22:14)
[2019-06-17] MEDS: SODIUM CHLORIDE FLUSH SYRINGE 10 ML IV SCH ×2 (10:02→22:13)
[2019-06-17] MEDS: OxyCONTIN PO SCH ×2 (10:02→22:13)
--- NOTE | 2019-06-17 14:49 | Consultation ---
History of Present Illness - Reason for Consult Consult date: 06/17/19 - History of Present Illness 39 yo F PMHx multiple falls, DVT admitted after recurrent mechanical fall. She notes she was chasing on of her children when she fell, and noted a snap. She then complained of severe hip and shoulder pain. She otherwise denied syncope or other medical reasons for her fall. She denied symptoms of systemic illness such as fevers, sweats, chills at the time. Since being admitted she was treated for pneumonia with ceftrixone. She was found to have hip and shoulder fractures and underwent reparative surgery on 06/07. She subsequently developed diarrhea during her admission. She notes a history of C diff x 3. She complains of a cramping abdominal pain that is mildly relieved with defecation. She notes liquid stools which are a change from her baseline. Her history of C diff started in April of this year. She notes being diagnosed several times. The first time she completed 10 day course of PO vanco, and the next time 6 days, and the third time only 4 days. Afebrile since admission with a mild neutropenia. She is currently receiving PO vancomycin. Duplex US showed residua of previous DVT, but no acute DVTs. Review of Systems: General: no fevers,chills or rigors currently. HEENT: no new visual disturbance Respiratory: No cough, sputum, hemoptysis or shortness of breath Cardiovascular: No chest pain, syncope Gastrointestinal: No nausea, vomiting, + diarrhea, + abdominal pain Genitourinary: No dysuria or hematuria. Has herrera Musculoskeletal: No new or worsening neck pain or back pain Neurologic: No headaches, seizures Hematologic: No easy bruising or bleeding Endocrine: No night sweats or acute weight loss Skin: negative for rash, jaundice Psychiatric: No suicidal or homicidal ideation Past History Past Medical History: other (Recurrent falls, C diff) Past Surgical History: Other (Multiple ORIF) Social history: denies: smoking, alcohol abuse Family history: CAD Medications and Allergies Allergies Allergy/AdvReac Type Severity Reaction Status Date / Time ketorolac [From Toradol] Allergy Unknown Verified 06/05/19 06:56 tramadol Allergy Unknown Verified 06/05/19 06:56 Penicillins AdvReac Unknown Verified 06/07/19 13:38 IV CONTRAST AdvReac Unknown Uncoded 06/07/19 13:38 Home Medications Medication Instructions Recorded Confirmed Last Taken Type Gabapentin [Neurontin] 300 mg PO BID 09/22/17 06/06/19 Unknown History Insulin Aspart [NovoLOG Flexpen] 10 units SQ AC 09/22/17 06/06/19 Unknown History Rivaroxaban [Xarelto] 20 mg PO DAILY 09/22/17 06/06/19 Unknown History Detemir (Nf) [Levemir (Nf)] 10 units SUB-Q QHS #1 vial 09/23/17 06/06/19 Unknown Rx Venlafaxine Xr [Effexor XR] 75 mg PO QDAY capsule 09/23/17 06/06/19 Unknown Rx Active Meds: Active Medications Acetaminophen (Tylenol) 650 mg PO Q4H PRN PRN Reason: Pain MILD(1-3)/Fever >100.5/ROQUE Last Admin: 06/08/19 04:00 Dose: 650 mg Documented by: Alprazolam (Xanax) 2 mg PO BID [facility] Last Admin: 06/17/19 10:01 Dose: 2 mg Documented by: Buspirone HCl (Buspar) 7.5 mg PO BID [facility] Last Admin: 06/17/19 10:01 Dose: 7.5 mg Documented by: Dextrose (D50w (25gm) Vial) 50 gm IV PRN PRN PRN Reason: Hypoglycemia Last Admin: 06/07/19 17:12 Dose: 6.25 gm Documented by: Diphenhydramine HCl (Benadryl) 25 mg PO Q6H PRN PRN Reason: Itching Last Admin: 06/11/19 19:01 Dose: 25 mg Documented by: Enoxaparin Sodium (Lovenox) 40 mg SUB-Q QDAY@2200 [facility] Last Admin: 06/16/19 21:58 Dose: 40 mg Documented by: Gabapentin (Neurontin) 300 mg PO BID [facility] Last Admin: 06/17/19 10:01 Dose: 300 mg Documented by: Insulin Glargine (Lantus) 10 units SUB-Q QHS [facility] Last Admin: 06/16/19 22:00 Dose: Not Given Documented by: Insulin Human Lispro (Humalog) 0 unit SUB-Q [facility]; Protocol Last Admin: 06/17/19 12:48 Dose: 3 unit Documented by: Insulin Human Lispro (Humalog) 10 unit SUB-Q [facility] Last Admin: 06/17/19 12:48 Dose: 10 unit Documented by: Ondansetron HCl (Zofran) 4 mg IV Q8H PRN PRN Reason: Nausea And Vomiting Oxycodone HCl (Roxicodone) 10 mg PO Q4H PRN PRN Reason: Pain, Moderate (4-6) Last Admin: 06/17/19 10:01 Dose: 10 mg Documented by: Oxycodone HCl (Oxycontin) 10 mg PO Q12HR [facility] Last Admin: 06/17/19 10:02 Dose: Not Given Documented by: Sodium Chloride (Sodium Chloride Flush Syringe 10 Ml) 10 ml IV BID [facility] Last Admin: 06/17/19 10:02 Dose: 10 ml Documented by: Sodium Chloride (Sodium Chloride Flush Syringe 10 Ml) 10 ml IV PRN PRN PRN Reason: LINE FLUSH Last Admin: 06/06/19 04:37 Dose: 10 ml Documented by: Vancomycin HCl (Vancomycin Po) 125 mg PO Q6HR [facility] Last Admin: 06/17/19 12:47 Dose: 125 mg Documented by: Venlafaxine HCl (Effexor Xr) 75 mg PO QDAY [facility] Last Admin: 06/17/19 10:01 Dose: 75 mg Documented by: Physical Examination - Physical Exam Narrative exam: Physical Exam: Constitutional: Alert, cooperative. No acute distress Head, Ears, Nose: Normocephalic, atraumatic. External ears, nose normal Eyes: Conjunctivae/corneas clear. No icterus. No ptosis. Neck: Supple, no meningeal signs Oral: dentition fair, no thrush Cardiovascular: S1, S2 normal. Respiratory: Good air entry, clear to auscultation bilaterally GI: Soft, tender; bowel sounds normal. No peritoneal signs. Musculoskeletal: No pedal edema, no cyanosis. Skin: No rash or abscess Hem/Lymphatic: No palpable cervical or supraclavicular nodes. No lymphangitis Psych: Mood ok. Affect normal Neurological: Awake, alert, oriented. No gross abnormality - Constitutional Vitals: Vital Signs Temp Pulse Resp BP Pulse Ox 98.3 F 82 16 104/69 98 06/17/19 12:54 06/17/19 12:54 06/17/19 12:54 06/17/19 12:54 06/17/19 00:35 Temperature -Last 24 Hours Temperature 98.3 F Temperature 98.0 F Temperature 97.3 F Temperature 98.6 F Temperature 98.6 F Results - Labs CBC & Chem 7: 06/17/19 06:53 06/17/19 06:53 Labs: Abnormal lab results 06/16/19 06/16/19 06/17/19 Range/Units 17:26 18:09 06:53 WBC 4.3 L (4.5-11.0) K/mm3 RDW 18.5 H (13.2-15.2) % Lymph % (Auto) 36.7 H (13.4-35.0) % Creatinine (0.7-1.2) mg/dL POC Glucose 44 L 195 H (70-105) Calcium (8.4-10.2) mg/dL 06/17/19 06/17/19 Range/Units 06:53 08:00 WBC (4.5-11.0) K/mm3 RDW (13.2-15.2) % Lymph % (Auto) (13.4-35.0) % Creatinine 0.4 L (0.7-1.2) mg/dL POC Glucose 217 H (70-105) Calcium 8.3 L (8.4-10.2) mg/dL - Imaging and Cardiology Venous US: image reviewed Assessment and Plan Cultures: 06/05 BCx - negative 06/05 UCx - negative 39 yo F PMHx multiple falls, DVT admitted after mechanical fall and fractures, now with diarrhea. 1. Diarrhea - Given her history she most likely had an undertreated C diff. Would recommend re-testing, although a positive test isn't necessarily conclusive as it can take up to a month or more for the test to turn negative after treatment. However, based on her symptoms I do believe she has C diff. I would recommend a PO vancomycin taper. The next step would be fidaxomicin, however that is highly expensive as such I think we should try the taper first. 2. Hip and shoulder fractures - s/p surgery 06/07 3. Hx of DVT Recs: - continue PO vanco fort he following taper: 125mg PO q6h for 14 days, then 125mg BID for 7 days, then 125mg q48h for 2 weeks. - send for C diff PCR. Thank you for the consult, we will continue to follow. Angella Donaldson MD [facility] M: [phone] O: [phone] F: [phone]
--- NOTE | 2019-06-17 16:29 | Progress Note ---
Assessment and Plan Assessment and plan: 39F with hx of multiple falls and fractures in the past who presents sp fall with pain in LUE and LLE - Left hip fracture/left shoulder fracture - pain meds, ortho consult, sp surgery on 06/07 - cont PT Diarrhea - patient had history of c.diff x 2 before - C. diff ordered and patient started empirically on Po vancomycin - ID consulted for c.diff because lab said need special authorization Severe anemia - transfused 2 units - H/H stable Swelling of left upper extremity - Doppler ultrasound was done and showed no acute DVT or arterial occlusion PNA -has completed abx hx of LE dvt restart xarelto when safe to do so after surgery will held DM uncontrolled - cont ssi, on 10 units of humalog ACHS - started on basal insulin - blood sugar is very high FTT -unable to care for self, will need PT consult after sx -has had multiple surgeries and falls, CM mgt consult and may need placement Morbid obesity, with protein malnutrition 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 History Interval history: Patient was seen and evaluated this morning. She is c/o diarrheal episodes overnight 4x. Patient's blood sugar is uncontrolled. Hospitalist Physical - Physical exam Narrative exam: Not in cardiopulmonary distress. The patient appeared well nourished and normally developed. Vital signs as documented. Head exam is unremarkable. No scleral icterus . Neck is without jugular venous distension, thyromegaly, or carotid bruits. Lungs are clear to auscultation. Cardiac exam reveals regular rate and Rhythm. Abdominal exam reveals normal bowel sounds. Extremities swelling of the left hand. AREA CAPTAIN: Alert and oriented. Hospitalist Physical - Constitutional Vitals: Temp Pulse Resp BP Pulse Ox 98.3 F 82 16 104/69 98 06/17/19 12:54 06/17/19 12:54 06/17/19 12:54 06/17/19 12:54 06/17/19 00:35 General appearance: Present: mild distress, cachectic, disheveled Results - Labs CBC & Chem 7: 06/17/19 06:53 06/17/19 06:53 Labs: Laboratory Last Values WBC 4.3 K/mm3 (4.5-11.0) L 06/17/19 06:53 RBC 3.86 M/mm3 (3.65-5.03) 06/17/19 06:53 Hgb 11.0 gm/dl (10.1-14.3) 06/17/19 06:53 Hct 34.3 % (30.3-42.9) 06/17/19 06:53 MCV 89 fl (79-97) 06/17/19 06:53 MCH 29 pg (28-32) 06/17/19 06:53 MCHC 32 % (30-34) 06/17/19 06:53 RDW 18.5 % (13.2-15.2) H 06/17/19 06:53 Plt Count 295 K/mm3 (140-440) 06/17/19 06:53 Lymph % (Auto) 36.7 % (13.4-35.0) H 06/17/19 06:53 [place] % (Auto) 5.9 % (0.0-7.3) 06/17/19 06:53 Eos % (Auto) 1.5 % (0.0-4.3) 06/17/19 06:53 Baso % (Auto) 0.5 % (0.0-1.8) 06/17/19 06:53 Lymph # 1.6 K/mm3 (1.2-5.4) 06/17/19 06:53 [place] # 0.3 K/mm3 (0.0-0.8) 06/17/19 06:53 Eos # 0.1 K/mm3 (0.0-0.4) 06/17/19 06:53 Baso # 0.0 K/mm3 (0.0-0.1) 06/17/19 06:53 Seg Neutrophils % 55.4 % (40.0-70.0) 06/17/19 06:53 Seg Neutrophils # 2.4 K/mm3 (1.8-7.7) 06/17/19 06:53 PT 18.0 Sec. (12.2-14.9) H 06/05/19 00:24 INR 1.53 (0.87-1.13) H 06/05/19 00:24 APTT 35.5 Sec. (24.2-36.6) 06/05/19 00:24 Sodium 139 mmol/L (137-145) 06/17/19 06:53 Potassium 4.3 mmol/L (3.6-5.0) 06/17/19 06:53 Chloride 100.9 mmol/L (98-107) 06/17/19 06:53 Carbon Dioxide 28 mmol/L (22-30) 06/17/19 06:53 14 mmol/L 06/17/19 06:53 BUN 14 mg/dL (7-17) 06/17/19 06:53 0.4 mg/dL (0.7-1.2) L 06/17/19 06:53 Estimated GFR > 60 ml/min 06/17/19 06:53 35 % 06/17/19 06:53 Glucose 91 mg/dL (65-100) 06/17/19 06:53 POC Glucose < 40 (70-105) L 06/17/19 14:52 10.9 % (4-6) H 06/05/19 00:26 Lactic Acid 2.60 mmol/L (0.7-2.0) H* 06/05/19 12:32 Calcium 8.3 mg/dL (8.4-10.2) L 06/17/19 06:53 Magnesium 1.70 mg/dL (1.7-2.3) 06/05/19 00:24 0.20 mg/dL (0.1-1.2) 06/05/19 00:24 AST 11 units/L (5-40) 06/05/19 00:24 ALT 14 units/L (7-56) 06/05/19 00:24 158 units/L (35-129) H 06/05/19 00:24 30 units/L (30-135) 06/05/19 00:24 4.7 g/dL (6.3-8.2) L 06/05/19 00:24 2.3 g/dL (3.9-5) L 06/05/19 00:24 1.0 % 06/05/19 00:24 TSH 2.490 mlU/mL (0.270-4.200) 06/06/19 17:13 FSH 5.5 mIU/mL () 06/06/19 17:13 HCG, Quant 1.37 mIU/mL (0-4) 06/05/19 00:24 Yellow (Yellow) 06/04/19 Unknown Clear (Clear) 06/04/19 Unknown 7.0 (5.0-7.0) 06/04/19 Unknown Ur Specific [place] 1.012 (1.003-1.030) 06/04/19 Unknown 30 mg/dl mg/dL (Negative) 06/04/19 Unknown Trace mg/dL (Negative) 06/04/19 Unknown Negative mg/dL (Negative) 06/04/19 Unknown Negative (Negative) 06/04/19 Unknown Negative (Negative) 06/04/19 Unknown Ur Reducing Substances Not Reportable 06/04/19 Unknown Negative (Negative) 06/04/19 Unknown Not Reportable 06/04/19 Unknown 0.0 mg/dL (<2.0) 06/04/19 Unknown Ur Leukocyte Esterase Negative (Negative) 06/04/19 Unknown 1.0 /HPF (0.0-6.0) 06/04/19 Unknown 1.0 /HPF (0.0-6.0) 06/04/19 Unknown Few /HPF 06/04/19 Unknown Salicylates 0.3 mg/dL (2.8-20.0) L 06/05/19 00:24 Acetaminophen 5.0 ug/mL (10.0-30.0) L 06/05/19 00:24 Plasma/Serum Alcohol 0.01 % (0-0.07) 06/05/19 00:24 Blood Type O POSITIVE 06/13/19 10:11 Antibody Screen Negative 06/13/19 10:11 Crossmatch See Detail 06/13/19 10:11 Active Medications - Current Medications Current Medications: Generic Name Dose Route Start Last Admin Trade Name Freq PRN Reason Stop Dose Admin Acetaminophen 650 mg 06/05/19 08:30 06/08/19 04:00 Tylenol PO 650 mg Q4H PRN Administration Pain MILD(1-3)/Fever >100.5/ROQUE Alprazolam 2 mg 06/10/19 14:15 06/17/19 10:01 Xanax PO 2 mg BID JERMAN Administration Buspirone HCl 7.5 mg 06/05/19 22:00 06/17/19 10:01 Buspar PO 7.5 mg BID [facility] Administration Dextrose 50 gm 06/04/19 23:21 06/07/19 17:12 D50w (25gm) Vial IV 6.25 gm PRN PRN Administration Hypoglycemia Diphenhydramine HCl 25 mg 06/08/19 13:01 06/11/19 19:01 Benadryl PO 25 mg Q6H PRN Administration Itching Enoxaparin Sodium 40 mg 06/05/19 22:00 06/16/19 21:58 Lovenox SUB-Q 40 mg QDAY@2200 JERMAN Administration Gabapentin 300 mg 06/05/19 10:00 06/17/19 10:01 Neurontin PO 300 mg BID [facility] Administration Insulin Glargine 10 units 06/16/19 22:00 06/16/19 22:00 Lantus SUB-Q Not Given QHS [facility] Insulin Human Lispro 0 unit 06/14/19 23:30 06/17/19 12:48 Humalog SUB-Q 3 unit [facility] Administration Protocol Insulin Human Lispro 5 unit 06/17/19 16:30 Humalog SUB-Q AC [facility] Ondansetron HCl 4 mg 06/05/19 08:30 Zofran IV Q8H PRN Nausea And Vomiting Oxycodone HCl 10 mg 06/05/19 16:39 06/17/19 15:21 Roxicodone PO 10 mg Q4H PRN Administration Pain, Moderate (4-6) Oxycodone HCl 10 mg 06/10/19 14:00 06/17/19 10:02 Oxycontin PO Not Given Q12HR JERMAN Sodium Chloride 10 ml 06/05/19 10:00 06/17/19 10:02 Sodium Chloride Flush Syringe 10 Ml IV 10 ml BID JERMAN Administration Sodium Chloride 10 ml 06/05/19 08:30 06/06/19 04:37 Sodium Chloride Flush Syringe 10 Ml IV 10 ml PRN PRN Administration LINE FLUSH Vancomycin HCl 125 mg 06/15/19 12:00 06/17/19 12:47 Vancomycin Po PO 125 mg Q6HR JERMAN Administration Venlafaxine HCl 75 mg 06/05/19 11:00 06/17/19 10:01 Effexor Xr PO 75 mg QDAY JERMAN Administration Nutrition/Malnutrition Assess - Dietary Evaluation Nutrition/Malnutrition Findings: Nutrition Notes Start: 06/05/19 13: 42 Freq: Status: Active Protocol: Document 06/15/19 16:59 RM (Rec: 06/15/19 17:14 RM [id number]) Nutrition Notes Initial or Follow up Reassessment Current Diagnosis Diabetes Other Pertinent Diagnosis FTT, L arm wound, Pancreatitis ,Hx gastric bypass,PNA,Opiod dependence Current Diet Consistent CHO w/Glucerna 1 daily Labs/Tests Reviewed Pertinent Medications Reviewed Height 5 ft 5 in Weight 142 kg [place] Body Weight (kg) 56.81 BMI 52.0 Subjective/Other Information Pt stated that she eats bites of her meals and does not drink the Glucerna d/t similarity to milk. However nurse stated that pt eats all of her meals. Nurse confirmed that pt does not drink the Glucerna. Percent of energy/protein needs met: 100%/76% Burn Absent Trauma Absent #1 Nutrition Diagnosis Inadequate oral intake As Evidenced by Signs and Symptoms pt meeting 100% of calorie and 76% of protein needs Diagnosis Progress(for reassessment Resolved documentation) Is patient on ventilator? No Is Patient Ambulatory and/or Out of Bed No REE-([facility]-confined to bed) 2517.096 Kcal/Kg value to use for calculation 14 Approximate Energy Requirements Using 1988 kcal/Kg Calculation Used for Recommendations Kcal/kg Additional Notes Protein Needs: 119-149g (1.2-1 .5g/kg 99 kg adjBW) Fluid Needs: 1ml/kcal Nutrition Intervention Change Diet Order: Cont consistent CHO Add Supplement/Snack (indicate name/kcal D/C Glucerna. Add Reese BID /protein ) Provides kCal: 190 Provides Protein (gm) 5 Goal #1 Continue to meet at least 75% of calorie and protein needs Goal #2 Reese intake Anticipated Discharge Needs: Consistent CHO diet Follow-Up By: 06/20/19 Additional Comments Follow for PO and Reese intakes
[2019-06-17] MEDS: LOVENOX SUB-Q SCH (22:13)
[2019-06-17] MEDS: LANTUS SUB-Q SCH (22:13)
[2019-06-18] MEDS: VANCOMYCIN PO PO SCH ×5 (00:15→23:00)
[2019-06-18] MEDS: ROXICODONE PO PRN ×5 (05:22→21:50)
[2019-06-18] MEDS: HumaLOG SUB-Q SCH ×7 (08:06→22:53)
[2019-06-18] MEDS: XANAX PO SCH ×2 (09:38→21:46)
[2019-06-18] MEDS: NEURONTIN PO SCH ×2 (09:38→21:45)
[2019-06-18] MEDS: BUSPAR PO SCH ×2 (09:38→21:45)
[2019-06-18] MEDS: EFFEXOR XR PO SCH (09:38)
[2019-06-18] MEDS: OxyCONTIN PO SCH ×2 (09:38→21:47)
[2019-06-18] MEDS: SODIUM CHLORIDE FLUSH SYRINGE 10 ML IV SCH ×2 (09:54→21:46)
--- NOTE | 2019-06-18 10:16 | Progress Note ---
Assessment and Plan Cultures: 06/05 BCx - negative 06/05 UCx - negative 39 yo F PMHx multiple falls, DVT admitted after mechanical fall and fractures, now with diarrhea. 1. Diarrhea - Improving. Reports 1 formed stool today. Given her history she most likely had an undertreated C diff. Would recommend re-testing, although a positive test isn't necessarily conclusive as it can take up to a month or more for the test to turn negative after treatment. However, based on her symptoms I do believe she has C diff. I would recommend a PO vancomycin taper. 2. Hip and shoulder fractures - s/p surgery 06/07 3. Hx of DVT 4. Morbid obesity 5. Type 2 diabetes: Uncontrolled 6. Tobacco abuse: Recs: - continue PO vanco for the following taper: 125mg PO q6h for 14 days, then 125mg BID for 7 days, then 125mg q48h for 2 weeks. [facility] M: [phone] O:[phone] Subjective Date of service: 06/18/19 Interval history: Patient seen and examined. Reports diffuse abdominal pain and cramping. No fevers. Objective - Exam Narrative Exam: Constitutional: Alert, cooperative. Diffuse abdominal pain and cramping. Head, Ears, Nose: Normocephalic, atraumatic. External ears, nose normal Eyes: Conjunctivae/corneas clear. No icterus. No ptosis. Neck: Supple, no meningeal signs Oral: dentition fair, no thrush Cardiovascular: S1, S2 normal. Respiratory: Good air entry, clear to auscultation bilaterally GI: Soft, tender; bowel sounds normal. No peritoneal signs. Musculoskeletal: No pedal edema, no cyanosis. Skin: No rash or abscess Hem/Lymphatic: No palpable cervical or supraclavicular nodes. No lymphangitis Psych: Mood ok. Affect normal Neurological: Awake, alert, oriented. No gross abnormality - Constitutional Vitals: Vital Signs Temp Pulse Resp BP Pulse Ox 97.3 F L 64 18 142/85 100 06/18/19 07:46 06/18/19 07:46 06/18/19 10:00 06/18/19 07:46 06/18/19 07:46 Temperature -Last 24 Hours Temperature 97.3 F Temperature 97.0 F Temperature 98.3 F Temperature 97.6 F Temperature 99.0 F Temperature 98.3 F - Labs CBC & Chem 7: 06/17/19 06:53 06/17/19 06:53 Labs: Abnormal lab results 06/17/19 06/17/19 06/17/19 Range/Units 14:52 17:24 19:02 POC Glucose < 40 L 55 L 68 L (70-105) 06/17/19 06/18/19 Range/Units 21:03 03:26 POC Glucose 188 H 175 H (70-105)
--- NOTE | 2019-06-18 16:46 | Discharge Summary ---
Providers - Providers Date of Admission: 06/05/19 06:03 Attending physician: HUNTER DENG MD 06/05/19 04:12 Consult to Physician [CONS] Urgent Comment: Consulting Provider: ANKUSH POTTS Physician Instructions: Reason For Exam: left trochanter fracture 06/05/19 05:25 Consult to Physician [CONS] Urgent Comment: Consulting Provider: ANKUSH POTTS Physician Instructions: Reason For Exam: humeral neck fracture 06/05/19 08:34 Consult to Dietitian/Nutrition [CONS] Routine Physician Instructions: Reason For Exam: Reason for Consult: Diet education 06/06/19 11:39 Consult to Wound/ET Nurse [CONS] Routine Reason For Exam: wound eval 06/06/19 15:47 Consult to Physician [CONS] Routine Comment: Consulting Provider: LATOYA VELA Physician Instructions: Reason For Exam: amenorrhea 06/07/19 15:55 Physical Therapy Evaluation and Treat [CONS] Routine Comment: Reason For Exam: postoperative evaluation Weight bearing status?: Full wt bearing Assistive devices?: Yes If so list: Walker 06/08/19 10:06 Occupational Therapy Evaluate and Treat [CONS] Routine Comment: Reason For Exam: S/P surgery, generalized weakness 06/12/19 14:50 Physical Therapy Evaluation and Treat [CONS] Routine Comment: Reason For Exam: S/P fall and surgery 06/16/19 08:46 Consult to Physician [CONS] Routine Comment: Consulting Provider: CHAYITO MUELLER Physician Instructions: Reason For Exam: c.diff [facility] Condition: Fair Hospital course: 125mg PO q6h for 14 days, then 125mg BID for 7 days, then 125mg q48h for 2 weeks. Disposition: DC/TX-03 SN[facility] Time spent for discharge: 33 mins Core Measure Documentation - Palliative Care Palliative Care/ Comfort Measures: Not Applicable - Core Measures Any of the following diagnoses?: none Exam - Physical Exam Narrative exam: General appearance: Present: severe distress, cachectic, disheveled - EENT Eyes: Present: PERRL ENT: hearing intact, clear oral mucosa - Neck Neck: Present: supple, normal ROM - Respiratory Respiratory effort: normal Respiratory: bilateral: CTA - Cardiovascular Heart Sounds: Present: S1 & S2. Absent: rub, click - Extremities Extremities: pulses symmetrical, No edema Extremity abnormal: other (tenderness and decreased rom of L shoulder and Left hip) Peripheral Pulses: within normal limits - Abdominal General gastrointestinal: Present: soft, non-tender, non-distended, normal bowel sounds Female genitourinary: Present: normal - Integumentary Integumentary: Present: clear, warm, dry - Musculoskeletal Musculoskeletal: gait normal, strength equal bilaterally - Psychiatric Psychiatric: appropriate mood/affect, intact judgment & insight - Neurologic Neurologic: CNII-XII intact, moves all extremities - Constitutional Vitals: Temp Pulse Resp BP Pulse Ox 98.1 F 65 18 124/76 98 06/18/19 16:10 06/18/19 16:10 06/18/19 16:10 06/18/19 16:10 06/18/19 16:10 [facility]Primary Care Provider[facility] - 3-5 Days Prescriptions: oxyCODONE ER [oxyCONTIN ER] 10 mg PO Q12HR #10 tablet oxyCODONE [roxiCODONE] 10 mg PO Q4H PRN #10 tablet PRN Reason: Pain, Moderate (4-6) Vancomycin 125 mg PO Q6HR 9 Days #180 oralsyr Vancomycin 125 mg PO BID 14 Days #140 oralsyr ALPRAZolam [Xanax TAB] 2 mg PO BID #7 tablet Vancomycin 125 mg PO Q48HR 14 Days #35 oralsyr
[2019-06-18] MEDS: LOVENOX SUB-Q SCH (21:46)
[2019-06-18] MEDS: LANTUS SUB-Q SCH (22:53)
[2019-06-19] MEDS: VANCOMYCIN PO PO SCH ×2 (05:00→11:31)
[2019-06-19] MEDS: ROXICODONE PO PRN ×3 (05:00→13:05)
[2019-06-19] MEDS: HumaLOG SUB-Q SCH ×4 (08:22→11:39)
[2019-06-19] MEDS: BUSPAR PO SCH (09:32)
[2019-06-19] MEDS: XANAX PO SCH (09:33)
[2019-06-19] MEDS: NEURONTIN PO SCH (09:34)
[2019-06-19] MEDS: SODIUM CHLORIDE FLUSH SYRINGE 10 ML IV SCH (09:34)
[2019-06-19] MEDS: OxyCONTIN PO SCH (09:34)
[2019-06-19] MEDS: EFFEXOR XR PO SCH (09:34)
--- NOTE | 2019-06-19 10:03 | Progress Note ---
Assessment and Plan Cultures: 06/05 BCx - negative 06/05 UCx - negative 39 yo F PMHx multiple falls, DVT admitted after mechanical fall and fractures, now with diarrhea. 1. Diarrhea - Improving. Reports 1 formed stool today. Given her history she most likely had an undertreated C diff. Would recommend re-testing, although a positive test isn't necessarily conclusive as it can take up to a month or more for the test to turn negative after treatment. However, based on her symptoms I do believe she has C diff. PO vancomycin taper continued. 2. Hip and shoulder fractures - s/p surgery 06/07 3. Hx of DVT 4. Morbid obesity 5. Type 2 diabetes: Uncontrolled 6. Tobacco abuse: Recs: - continue PO vanco for the following taper: 125mg PO q6h for 14 days, then 125mg BID for 7 days, then 125mg q48h for 2 weeks- discussed with patient - Might need an even longer taper (probably over 2 months). May need alternative therapy including FMT. - Follow-up ID clinic in 2 weeks (sent to surgery scheduler) [facility] M: [phone] O:[phone] Subjective Date of service: 06/19/19 Interval history: Patient seen and examined. No acute distress reported. No fevers. Out patient oral antibiotic plan and office follow-up discussed. Verbalized understanding. Objective - Exam Narrative Exam: Constitutional: Alert, cooperative. No acute distress. Head, Ears, Nose: Normocephalic, atraumatic. External ears, nose normal Eyes: Conjunctivae/corneas clear. No icterus. No ptosis. Neck: Supple, no meningeal signs Oral: dentition fair, no thrush Cardiovascular: S1, S2 normal. Respiratory: Good air entry, clear to auscultation bilaterally GI: Soft, tender; bowel sounds normal. No peritoneal signs. Musculoskeletal: No pedal edema, no cyanosis. Skin: No rash or abscess Hem/Lymphatic: No palpable cervical or supraclavicular nodes. No lymphangitis Psych: Mood ok. Affect normal Neurological: Awake, alert, oriented. No gross abnormality - Constitutional Vitals: Vital Signs Temp Pulse Resp BP Pulse Ox 98.2 F 74 18 108/70 97 06/19/19 07:30 06/19/19 07:30 06/19/19 07:30 06/19/19 07:30 06/19/19 07:30 Temperature -Last 24 Hours Temperature 98.2 F Temperature 97.9 F Temperature 97.9 F Temperature 98.1 F Temperature 97.9 F - Labs CBC & Chem 7: 06/17/19 06:53 06/17/19 06:53 Labs: Abnormal lab results 06/18/19 06/18/19 06/18/19 Range/Units 08:01 11:59 17:03 POC Glucose 241 H 192 H 189 H (70-105) 06/18/19 06/19/19 06/19/19 Range/Units 21:41 02:29 07:38 POC Glucose 473 H 371 H 114 H (70-105)
[2019-06-19 12:23] VITALS: BP 136/81
--- NOTE | 2019-06-19 12:49 | Progress Note ---
Hospitalist Physical - Constitutional Vitals: Temp Pulse Resp BP Pulse Ox 98.1 F 67 18 136/81 95 06/19/19 11:59 06/19/19 11:59 06/19/19 11:59 06/19/19 11:59 06/19/19 11:59 General appearance: Present: mild distress, cachectic, disheveled Results - Labs CBC & Chem 7: 06/17/19 06:53 06/17/19 06:53 Labs: Laboratory Last Values WBC 4.3 K/mm3 (4.5-11.0) L 06/17/19 06:53 RBC 3.86 M/mm3 (3.65-5.03) 06/17/19 06:53 Hgb 11.0 gm/dl (10.1-14.3) 06/17/19 06:53 Hct 34.3 % (30.3-42.9) 06/17/19 06:53 MCV 89 fl (79-97) 06/17/19 06:53 MCH 29 pg (28-32) 06/17/19 06:53 MCHC 32 % (30-34) 06/17/19 06:53 RDW 18.5 % (13.2-15.2) H 06/17/19 06:53 Plt Count 295 K/mm3 (140-440) 06/17/19 06:53 Lymph % (Auto) 36.7 % (13.4-35.0) H 06/17/19 06:53 [place] % (Auto) 5.9 % (0.0-7.3) 06/17/19 06:53 Eos % (Auto) 1.5 % (0.0-4.3) 06/17/19 06:53 Baso % (Auto) 0.5 % (0.0-1.8) 06/17/19 06:53 Lymph # 1.6 K/mm3 (1.2-5.4) 06/17/19 06:53 [place] # 0.3 K/mm3 (0.0-0.8) 06/17/19 06:53 Eos # 0.1 K/mm3 (0.0-0.4) 06/17/19 06:53 Baso # 0.0 K/mm3 (0.0-0.1) 06/17/19 06:53 Seg Neutrophils % 55.4 % (40.0-70.0) 06/17/19 06:53 Seg Neutrophils # 2.4 K/mm3 (1.8-7.7) 06/17/19 06:53 PT 18.0 Sec. (12.2-14.9) H 06/05/19 00:24 INR 1.53 (0.87-1.13) H 06/05/19 00:24 APTT 35.5 Sec. (24.2-36.6) 06/05/19 00:24 Sodium 139 mmol/L (137-145) 06/17/19 06:53 Potassium 4.3 mmol/L (3.6-5.0) 06/17/19 06:53 Chloride 100.9 mmol/L (98-107) 06/17/19 06:53 Carbon Dioxide 28 mmol/L (22-30) 06/17/19 06:53 14 mmol/L 06/17/19 06:53 BUN 14 mg/dL (7-17) 06/17/19 06:53 0.4 mg/dL (0.7-1.2) L 06/17/19 06:53 Estimated GFR > 60 ml/min 06/17/19 06:53 35 % 06/17/19 06:53 Glucose 91 mg/dL (65-100) 06/17/19 06:53 POC Glucose 223 (70-105) H 06/19/19 11:25 10.9 % (4-6) H 06/05/19 00:26 Lactic Acid 2.60 mmol/L (0.7-2.0) H* 06/05/19 12:32 Calcium 8.3 mg/dL (8.4-10.2) L 06/17/19 06:53 Magnesium 1.70 mg/dL (1.7-2.3) 06/05/19 00:24 0.20 mg/dL (0.1-1.2) 06/05/19 00:24 AST 11 units/L (5-40) 06/05/19 00:24 ALT 14 units/L (7-56) 06/05/19 00:24 158 units/L (35-129) H 06/05/19 00:24 30 units/L (30-135) 06/05/19 00:24 4.7 g/dL (6.3-8.2) L 06/05/19 00:24 2.3 g/dL (3.9-5) L 06/05/19 00:24 1.0 % 06/05/19 00:24 TSH 2.490 mlU/mL (0.270-4.200) 06/06/19 17:13 FSH 5.5 mIU/mL () 06/06/19 17:13 1.3 mIU/mL () 06/06/19 17:13 HCG, Quant 1.37 mIU/mL (0-4) 06/05/19 00:24 Yellow (Yellow) 06/04/19 Unknown Clear (Clear) 06/04/19 Unknown 7.0 (5.0-7.0) 06/04/19 Unknown Ur Specific [place] 1.012 (1.003-1.030) 06/04/19 Unknown 30 mg/dl mg/dL (Negative) 06/04/19 Unknown Trace mg/dL (Negative) 06/04/19 Unknown Negative mg/dL (Negative) 06/04/19 Unknown Negative (Negative) 06/04/19 Unknown Negative (Negative) 06/04/19 Unknown Ur Reducing Substances Not Reportable 06/04/19 Unknown Negative (Negative) 06/04/19 Unknown Not Reportable 06/04/19 Unknown 0.0 mg/dL (<2.0) 06/04/19 Unknown Ur Leukocyte Esterase Negative (Negative) 06/04/19 Unknown 1.0 /HPF (0.0-6.0) 06/04/19 Unknown 1.0 /HPF (0.0-6.0) 06/04/19 Unknown Few /HPF 06/04/19 Unknown Salicylates 0.3 mg/dL (2.8-20.0) L 06/05/19 00:24 Acetaminophen 5.0 ug/mL (10.0-30.0) L 06/05/19 00:24 Plasma/Serum Alcohol 0.01 % (0-0.07) 06/05/19 00:24 Blood Type O POSITIVE 06/13/19 10:11 Antibody Screen Negative 06/13/19 10:11 Crossmatch See Detail 06/13/19 10:11 Active Medications - Current Medications Current Medications: Generic Name Dose Route Start Last Admin Trade Name Freq PRN Reason Stop Dose Admin Acetaminophen 650 mg 06/05/19 08:30 06/08/19 04:00 Tylenol PO 650 mg Q4H PRN Administration Pain MILD(1-3)/Fever >100.5/ROQUE Alprazolam 2 mg 06/10/19 14:15 06/19/19 09:33 Xanax PO 2 mg BID JERMAN Administration Buspirone HCl 7.5 mg 06/05/19 22:00 06/19/19 09:32 Buspar PO 7.5 mg BID JERMAN Administration Dextrose 50 gm 06/04/19 23:21 06/07/19 17:12 D50w (25gm) Vial IV 6.25 gm PRN PRN Administration Hypoglycemia Diphenhydramine HCl 25 mg 06/08/19 13:01 06/11/19 19:01 Benadryl PO 25 mg Q6H PRN Administration Itching Enoxaparin Sodium 40 mg 06/05/19 22:00 06/18/19 21:46 Lovenox SUB-Q 40 mg QDAY@2200 JERMAN Administration Gabapentin 300 mg 06/05/19 10:00 06/19/19 09:34 Neurontin PO 300 mg BID JERMAN Administration Insulin Glargine 10 units 06/16/19 22:00 06/18/19 22:53 Lantus SUB-Q 10 units QHS JERMAN Administration Insulin Human Lispro 0 unit 06/14/19 23:30 06/19/19 11:39 Humalog SUB-Q 3 unit ACHS [facility] Administration Protocol Insulin Human Lispro 5 unit 06/17/19 16:30 06/19/19 11:39 Humalog SUB-Q Not Given [facility] Ondansetron HCl 4 mg 06/05/19 08:30 Zofran IV Q8H PRN Nausea And Vomiting Oxycodone HCl 10 mg 06/05/19 16:39 06/19/19 09:33 Roxicodone PO 10 mg Q4H PRN Administration Pain, Moderate (4-6) Oxycodone HCl 10 mg 06/10/19 14:00 06/19/19 09:34 Oxycontin PO Not Given Q12HR [facility] Sodium Chloride 10 ml 06/05/19 10:00 06/19/19 09:34 Sodium Chloride Flush Syringe 10 Ml IV 10 ml BID JERMAN Administration Sodium Chloride 10 ml 06/05/19 08:30 06/06/19 04:37 Sodium Chloride Flush Syringe 10 Ml IV 10 ml PRN PRN Administration LINE FLUSH Vancomycin HCl 125 mg 06/15/19 12:00 06/19/19 11:31 Vancomycin Po PO 06/29/19 00:01 125 mg Q6HR JERMAN Administration Vancomycin HCl 125 mg 06/29/19 10:00 Vancomycin Po PO 07/05/19 22:01 BID JERMAN Vancomycin HCl 125 mg 07/06/19 10:00 Vancomycin Po PO 07/19/19 23:00 Q48HR JERMAN Venlafaxine HCl 75 mg 06/05/19 11:00 06/19/19 09:34 Effexor Xr PO 75 mg QDAY JERMAN Administration Nutrition/Malnutrition Assess - Dietary Evaluation Nutrition/Malnutrition Findings: Nutrition Notes Start: 06/05/19 13:42 Freq: Status: Active Protocol: Document 06/15/19 16:59 RM (Rec: 06/15/19 17:14 RM [id number]) Nutrition Notes Initial or Follow up Reassessment Current Diagnosis Diabetes Other Pertinent Diagnosis FTT, L arm wound, Pancreatitis ,Hx gastric bypass,PNA,Opiod dependence Current Diet Consistent CHO w/Glucerna 1 daily Labs/Tests Reviewed Pertinent Medications Reviewed Height 5 ft 5 in Weight 142 kg [place] Body Weight (kg) 56.81 BMI 52.0 Subjective/Other Information Pt stated that she eats bites of her meals and does not drink the Glucerna d/t similarity to milk. However nurse stated that pt eats all of her meals. Nurse confirmed that pt does not drink the Glucerna. Percent of energy/protein needs met: 100%/76% Burn Absent Trauma Absent #1 Nutrition Diagnosis Inadequate oral intake As Evidenced by Signs and Symptoms pt meeting 100% of calorie and 76% of protein needs Diagnosis Progress(for reassessment Resolved documentation) Is patient on ventilator? No Is Patient Ambulatory and/or Out of Bed No REE-([facility]-confined to bed) 9747.096 Kcal/Kg value to use for calculation 14 Approximate Energy Requirements Using 1988 kcal/Kg Calculation Used for Recommendations Kcal/kg Additional Notes Protein Needs: 119-149g (1.2-1 .5g/kg 99 kg adjBW) Fluid Needs: 1ml/kcal Nutrition Intervention Change Diet Order: Cont consistent CHO Add Supplement/Snack (indicate name/kcal D/C Glucerna. Add Reese BID /protein ) Provides kCal: 190 Provides Protein (gm) 5 Goal #1 Continue to meet at least 75% of calorie and protein needs Goal #2 Reese intake Anticipated Discharge Needs: Consistent CHO diet Follow-Up By: 06/20/19 Additional Comments Follow for PO and Reese intakes
[2019-06-29] MEDS ORDERED: VANCOMYCIN PO PO SCH (10:00)
[2019-07-06] MEDS ORDERED: VANCOMYCIN PO PO SCH (10:00)
== END 2019-06-19 13:30 | DRG 480 ==
LOC: ED 21:27 → 3B-SURG 06-05 06:03
PROVIDERS: ADMIT Internal Medicine; ATTEND Internal Medicine
PROC: 30233N1 Transfusion of Nonautologous Red Blood Cells into Peripheral Vein, Percutaneous Approach (ICD-10-PCS; 2019-06-06)
PROC: 0QH636Z Insertion of Intramedullary Internal Fixation Device into Right Upper Femur, Percutaneous Approach (ICD-10-PCS; principal; 2019-06-07)
PROC: 0PHD36Z Insertion of Intramedullary Internal Fixation Device into Left Humeral Head, Percutaneous Approach (ICD-10-PCS; 2019-06-07)
DX: S72.142A Displaced intertrochanteric fracture of left femur, initial encounter for closed fracture (principal); J18.9 Pneumonia, unspecified organism; S42.292A Other displaced fracture of upper end of left humerus, initial encounter for closed fracture; E46 Unspecified protein-calorie malnutrition; Z68.43 Body mass index [BMI] 50.0-59.9, adult; G93.40 Encephalopathy, unspecified; F11.20 Opioid dependence, uncomplicated; A04.72 Enterocolitis due to Clostridium difficile, not specified as recurrent; I10 Essential (primary) hypertension; F32.9 Major depressive disorder, single episode, unspecified; F17.200 Nicotine dependence, unspecified, uncomplicated; E66.01 Morbid (severe) obesity due to excess calories; N91.2 Amenorrhea, unspecified; D63.8 Anemia in other chronic diseases classified elsewhere; W18.39XA Other fall on same level, initial encounter; M79.89 Other specified soft tissue disorders; G89.4 Chronic pain syndrome; E11.649 Type 2 diabetes mellitus with hypoglycemia without coma; E87.6 Hypokalemia; Z79.4 Long term (current) use of insulin; Z86.718 Personal history of other venous thrombosis and embolism; Z79.01 Long term (current) use of anticoagulants; Z98.51 Tubal ligation status; Z90.49 Acquired absence of other specified parts of digestive tract; Z83.3 Family history of diabetes mellitus; Z98.84 Bariatric surgery status; Z88.0 Allergy status to penicillin; Z91.041 Radiographic dye allergy status; Z79.899 Other long term (current) drug therapy; Y93.89 Activity, other specified; Y92.89 Other specified places as the place of occurrence of the external cause; Y99.8 Other external cause status; Z82.49 Family history of ischemic heart disease and other diseases of the circulatory system
CPT/HCPCS: 36415; 70450; 71045; 72125; 72170; 74176; 80048; 80053; 80320; 81001; 82140; 82550; 82962; 83001; 83036; 83735; 84443; 84702; 85014; 85018; 85025; 85610; 85730; 86850; 86900; 86901; 86920; 87040; 87086; 93005; 93010; 94760; 99406; G0378; C1713; C1769; G0480; J0456; J0696; J1170; J1200; J1650; J1815; J1885; J2270; J2704; J3010; J3370; J3480; J7030; J7040; J7050; P9016